=== PATIENT | male | born 1955 | race Caucasian/White ===

== ENCOUNTER → 2017-07-11 | Outpatient (CLI) | payer OTHER | LOC: BMCIMAGING 09:36 | PROVIDERS: ATTEND Internal Medicine Rheumatology | DX: M15.4 Erosive (osteo)arthritis (principal) ==

== ENCOUNTER → 2017-07-26 | Outpatient (CLI) | payer OTHER | LOC: FIMAGING 15:22 | PROVIDERS: ATTEND Internal Medicine Rheumatology | DX: L03.115 Cellulitis of right lower limb (principal); M67.471 Ganglion, right ankle and foot ==

== ENCOUNTER 2018-06-20 09:54 | Inpatient (IN) | payer OTHER ==
--- NOTE | 2018-06-20 10:16 | EDPHY ---
HPI/HX/ROS/PE/MDM Narrative: CHIEF COMPLAINT: CHF and Kidney failure exacerbation HISTORY OF PRESENT ILLNESS: The patient is an anticoagulated (Eliquis) 62 y/o male with a history of atrial fibrillation, CHF, ?COPD, O2 dependency and recently increasing creatinine arriving to the emergency department at the request of [facility]. From April 17- he was admitted in the ICU for A-fib, CHF, pulmonary disease possibly COPD. On April 17, the atrial fibrillation was first diagnosed and he was placed on supplemental oxygen. During this admission he had a cardioversion for the atrial fibrillation, but was back [facility] after 5 days. After the admission he was seen by a well service pump equipment operator at [facility], and had an echocardiogram which reveled an increase in his ejection fraction from 10 to 30%. On Sunday, 3 days ago, he noticed that he had increased fluid retention, shortness of breath, and weight gain. At this time he had an irregular heart beat. Due to these symptoms he saw his PCP who advised that the patient see a well service pump equipment operator. Yesterday he went to [facility] and saw Dr. Garcia , where again, AFib and RVR was diagnosed. Patient also was noted to be developing renal insufficiency. Due to this in addition to the fluid retention they advised that he present to the emergency department, but he decided to wait until today to present. He reports that he is still making urine, but has not been making as much for the last 2-3 months. He denies seeing a rim fire charger operator for the renal insufficiency as he was just diagnosed with it yesterday. No fever, chills, chest pain, vomiting, diarrhea, urinary complaints, headache, lightheadedness. REVIEW OF SYSTEMS: Aside from elements discussed in the HPI, a comprehensive 10-system review of systems was reviewed and is negative. PAST MEDICAL HISTORY: Atrial fibrillation, has been electrically converted previously and has declined treatment with tikosyn or sotalol. CHF, pulmonary disease, renal insufficiency, IBS, cholecystectomy, inguinal hernia, spinal stenosis, rheumatoid arthritis. SOCIAL HISTORY: Lives in [place], at bedside, retired VITAL SIGNS: Reviewed by me GENERAL: Appears sick, well-developed, well-nourished. Laying with the sunglasses on, and with an oxygen face mask on. HEENT: Atraumatic. Eyes: No icterus, no injection. Mouth: moist mucous membranes. No erythema or lesions. Neck: supple with no adenopathy. LUNGS: Bilateral rales, tachypneic, no wheezes or rhonchi. CARDIAC: Tachycardic, irregularly irregular, no rubs, murmurs or gallops. ABDOMEN: Protuberant abdomen without a fluid wave. Soft, nontender, bowel sounds normal. BACK: No CVA tenderness. EXTREMITIES: No trauma. 2+ bilateral pitting edema. Range of motion is normal throughout. NEURO: Alert and oriented, grossly nonfocal. SKIN: Warm and dry, no rash. PSYCHIATRIC: Normal mentation, no agitation. Portions of this note were transcribed by a medical logistics specialist. I personally performed a history, physical exam, medical decision making, and confirmed accuracy of information the transcribed note. ED Course: The patient is an anticoagulated (Eliquis) 62 y/o male with a history of atrial fibrillation, CHF, pulmonary disease requiring oxygen, acute renal insufficiency , arriving to the emergency department at the request of [facility]. He was seen by Dr. Connors, well service pump equipment operator, yesterday. During this visit he was in a-fib with RVR, had increased fluid retention, and was in acute renal failure. On exam he has rales bilaterally, is tachypneic, and tachycardic. He also has a protuberant abdomen without a fluid wave, has 2+ bilateral pitting edema, and appears sick. Labs, EKG, and chest x-ray ordered; 20mg IVP Diltiazem with a drip administered. 12-LEAD EKG: Please see the full report in [facility]. My interpretation: Atrial fibrillation with RVR Xray: Chest x-ray was obtained. I viewed the images myself on the PACS system. My interpretation of the images is: Cardiomegaly, acute pulmonary edema. The radiology interpretation is: Agrees. 1136: Reassessed patient and discussed laboratory and imaging results. I discussed the plan for admission which the patient and his are comfortable with. 1228: I consulted with the hospitalist service, Dr. Andrade accepts admission of this patient. Of note, patient's D-dimer is elevated. Because of his renal insufficiency, a would prefer not to perform a CT scan with IV contrast. V/Q scan is a possibility but the patient has significant pulmonary disease. Hospice service was made aware of the elevated D-dimer. If possible, they would like further evaluation for pulmonary embolism. Patient had received 40 mg of Lasix for his congestive heart failure. 1305: In preparation potential CT with IV contrast, patient received 500 cc of normal saline. 1334: Patient's BP has dropped from 108/83 to 98/81. His heart rate has dropped to the 70's and 80's. I have stopped the diltiazem drip. 1344: I consulted with Dr. Andrade regarding this patient, to provide update. 1404: I reassessed patient, he is no longer on the diltiazem drip but his BP has decreased to 65/49. When he is moved to a supine position his BP increases to 104/89. His heart rate remains well controlled. Patient's presentation and course discussed with well service pump equipment operator, Dr. Kim. As the patient is currently on Eliquis and has clear evidence of cardiomyopathy, and congestive heart failure which most likely explain the majority of his shortness of breath and hypoxemia, Dr. Kim would recommend not proceeding with CT scan for pulmonary embolism. 1409: Patient seen in the emergency department by Dr. Kim. MDM: Differential diagnosis for the patient's presenting symptom complex was considered including but not limited to atrial fibrillation with RVR, acute pulmonary edema, acute coronary syndrome, pulmonary embolism, cardiogenic shock. - Data Points Imaging Results: CXR: Impression: Cardiogenic pulmonary edema, superimposed on chronic interstitial lung disease. Dictated By: Humza Varela MD Imaging: I viewed and interpreted images myself Laboratory Results: Laboratory Results 06/20/18 10:22 06/20/18 10:22 Medications Given: Apixaban (Eliquis) 5 mg PO BID NARESH Stop: 12/17/18 20:59 Last Admin: 06/21/18 09:28 Dose: 5 mg Furosemide (Lasix Injection) 40 mg IVP BID@0900,1500 NARESH Stop: 12/17/18 14:59 Last Admin: 06/21/18 09:29 Dose: 40 mg Metoprolol Tartrate (Lopressor) 37.5 mg PO BID NARESH Stop: 12/17/18 09:59 Last Admin: 06/21/18 09:53 Dose: 37.5 mg Prednisone (Prednisone) 15 mg PO DAILY NARESH Stop: 12/18/18 08:59 Last Admin: 06/21/18 09:28 Dose: 15 mg Sotalol HCl (Betapace) 80 mg PO BID [facility] Stop: 12/17/18 20:59 Last Admin: 06/21/18 09:29 Dose: 80 mg Spironolactone (Aldactone) 25 mg PO DAILY NARESH Stop: 12/18/18 08:59 Last Admin: 06/21/18 09:28 Dose: 25 mg Zolpidem Tartrate (Ambien) 5 - 10 mg PO HS PRN PRN Reason: Sleep/Insomnia Stop: 12/17/18 15:45 Last Admin: 06/21/18 02:26 Dose: 10 mg Discontinued Medications Diltiazem HCl (Cardizem 25 Mg/5 Ml Vial) 20 mg IVP EDNOW ONE Stop: 06/20/18 10:41 Last Admin: 06/20/18 11:24 Dose: 20 mg Furosemide (Lasix Injection) 40 mg IVP ONCE ONE Stop: 06/20/18 13:40 Last Admin: 06/20/18 14:45 Dose: 40 mg Diltiazem HCl 125 mg/ Dextrose 125 mls @ 0 mls/hr IV EDNOW ONE; As Directed PRN Reason: Protocol Stop: 06/20/18 10:41 Last Admin: 06/20/18 12:14 Dose: 125 mls Sodium Chloride (Ns) 1,000 mls @ 0 mls/hr IV ONCE ONE; Wide Open PRN Reason: Protocol Stop: 06/20/18 13:07 Last Admin: 06/20/18 13:40 Dose: 1,000 mls Metoprolol Tartrate (Lopressor) 25 mg PO BID NARESH Stop: 12/17/18 20:59 Last Admin: 06/21/18 09:56 Dose: Not Given Point of Care Test Results: Chemistry 06/20/18 06/20/18 10:50 10:26 POC Sodium 140 mEq/L mEq/L (135-145) POC Potassium 3.4 mEq/L mEq/L (3.3-5.0) POC Chloride 98 mEq/L mEq/L (97-110) POC BUN 41 mg/dL H mg/dL (7-23) POC Creatinine 1.5 mg/dL H mg/dL (0.7-1.3) POC Glucose 205 mg/dL H mg/dL (70-100) POC Troponin I 0.02 ng/mL ng/mL (0.00-0.08) ISTAT H&H 06/20/18 10:50 POC Hgb 19.4 gm/dL H gm/dL (13.7-17.5) POC Hct 57 % H % (40-51) General Time Seen by Provider: 06/20/18 10:12 Initial Vital Signs: Initial Vital Signs Temperature (C) 36.8 C 06/20/18 10:07 Heart Rate 129 H 06/20/18 10:07 Respiratory Rate 24 H 06/20/18 10:07 Blood Pressure 108/83 H 06/20/18 10:07 O2 Sat (%) 93 06/20/18 10:07 O2 Delivery Mode Oxymask O2 (L/minute) 6 Allergies/Adverse Reactions: eluxadoline [From Viberzi] Allergy (Verified 06/20/18 10:05) metronidazole [From Flagyl] Allergy (Verified 06/20/18 10:05) Home Medications: Medication Instructions Recorded Diazepam [Valium 5 MG (*)] 5 mg PO QID PRN 04/17/18 Hydrocodone/Acetaminophen [[place] 0.5 - 1 each PO Q4-6PRN PRN 04/17/18 5/325 (*)] riTUXimab [Rituxan 500mg (*)] 375 mg IV .[id number] 04/17/18 Mag/Aluminum/Sod Bicarb/Alginc 2 each PO DAILY PRN 04/18/18 [Gaviscon 80-14.2 mg Tab Chew] Apixaban [Eliquis] 5 mg PO BID #60 tab 04/21/18 Furosemide [Lasix 20 MG (*)] 20 mg PO DAILY #30 tab 04/26/18 Spironolactone [Aldactone 25 MG 25 mg PO DAILY #30 tab 04/26/18 (*)] Cholecalciferol Vit D3 [Vitamin D3 2,000 units PO DAILY 06/20/18 2000 units tab (OTC)] Lisinopril [Zestril 5 mg (*)] 5 mg PO DAILY 06/20/18 Metoprolol Succinate Xr [Toprol Xl 250 mg PO DAILY 06/20/18 100 mg (*)] Nystatin Powder [Mycostatin Powder 1 roshan TP DAILY 06/20/18 (RX)] ZOLPIDEM TARTRATE [Ambien CR 12.5 12.5 mg PO HS PRN 06/20/18 mg] acetaZOLAMIDE [Diamox 250 mg (RX)] 250 mg PO DAILY 06/20/18 predniSONE [predniSONE] 15 mg PO DAILY 06/20/18 Departure - Departure Disposition: [facility] Inpatient Acute Clinical Impression: Atrial fibrillation with RVR, Shortness of breath Congestive heart failure Qualifiers: Heart failure type: unspecified Heart failure chronicity: acute on chronic Qualified Code(s): I50.9 - Heart failure, unspecified COPD (chronic obstructive pulmonary disease) Qualifiers: COPD type: COPD with acute exacerbation Qualified Code(s): J44.1 - Chronic obstructive pulmonary disease with (acute) exacerbation Renal failure Qualifiers: Renal failure chronicity: acute Acute renal failure type: unspecified Qualified Code(s): N17.9 - Acute kidney failure, unspecified Condition: Fair Report Scribed for: Emily Nieves Report Scribed by: Jayne Vallejo Date of Report: 06/20/18 Time of Report: 10:15
[2018-06-20] MEDS ORDERED: DILTIAZEM 125 MG in D5W 125 ML IV ONE (10:40)
[2018-06-20] MEDS ORDERED: DILTIAZEM 25 MG/5 ML VIAL IVP ONE (10:40)
[2018-06-20 10:59] LABS: PLATELET COUNT 130 10^3/uL (150-400)
[2018-06-20 11:14] LABS: INR 2.06 (0.83-1.16); PROTIME(PATIENT) 23.3 SEC (12.0-15.0)
[2018-06-20] MEDS ORDERED: ONDANSETRON 4 MG/2 ML VIAL IVP PRN (12:57)
[2018-06-20] MEDS ORDERED: ONDANSETRON DISINTEGRATING 4 MG TAB PO PRN (12:57)
[2018-06-20] MEDS ORDERED: ACETAMINOPHEN 325 MG TAB PO PRN (12:57)
[2018-06-20] MEDS ORDERED: NS 1,000 ML IV ONE (13:06)
[2018-06-20] MEDS ORDERED: FUROSEMIDE 20 MG/2 ML VIAL IVP ONE (13:39)
[2018-06-20] MEDS ORDERED: IOPAMIDOL (ISOVUE 370) 100 ML BTL IV ONE (13:45)
--- NOTE | 2018-06-20 14:24 | PDGENHP ---
History and Physical - Chief Complaint SOB, Edema - History of Present Illness Alphonse Orozco is a 62 yo male with a PMHx of A Fub, CHF, COPD, Rheumatoid Arthritis, CKD who presents to [facility] for evaluation of A Fib w RVR and CHF exacerbation. Patient notes that about 3 days ago he began to have lower extremity swelling, SOB, and weight gain. Due to these symptoms he saw his PCP who referred him to cardiology. He was seen by Dr. Garcia of [facility] yesterday where they noticed he was in Atrial fibrillation with RVR. Due to this in addition to the fluid retention, they advised that he present to the emergency department, but he decided to wait until today to present. He reports that he is still making urine, but has not been making as much for the last 2-3 months. He currently denies any chest pain, f/c, n/v. He does still have SOB and palpitations present. Of note, patient was admitted to [facility] from April 17- for A-fib, CHF, COPD, and kidney failure. During this admission, cardioversion was performed however patient returned to [facility] after 5 days. After the admission he was seen by a marketing and public relations manager at [facility], and had an echocardiogram which reveled an increase in his ejection fraction from 10 to 30%. History Information - Allergies/Home Medication List Allergies/Adverse Reactions: penicillin V Allergy (Severe, Verified 04/17/18 08:44) eluxadoline [From Viberzi] Allergy (Verified 06/20/18 10:05) metronidazole [From Flagyl] Allergy (Verified 06/20/18 10:05) Home Medications: Diazepam [Valium 5 MG (*)] 5 mg PO QID PRN 04/17/18 [Last Taken 06/19/18] Hydrocodone/Acetaminophen [[place] 5/325 (*)] 0.5 - 1 each PO Q4-6PRN PRN [Last Taken 06/20/18] riTUXimab [Rituxan 500mg (*)] 375 mg IV .[id number] 04/17/18 [Last Taken Unknown] Mag/Aluminum/Sod Bicarb/Alginc [Gaviscon 80-14.2 mg Tab Chew] 2 each PO DAILY PRN 04/18/18 [Last Taken 06/20/18] Cholecalciferol Vit D3 [Vitamin D3 2000 units tab (OTC)] 2,000 units PO DAILY [Last Taken 06/20/18] Lisinopril [Zestril 5 mg (*)] 5 mg PO DAILY 06/20/18 [Last Taken 06/20/18] Metoprolol Succinate Xr [Toprol Xl 100 mg (*)] 250 mg PO DAILY 06/20/18 [Last Taken 06/20/18] Nystatin Powder [Mycostatin Powder (RX)] 1 roshan TP DAILY 06/20/18 [Last Taken 12/02] ZOLPIDEM TARTRATE [Ambien CR 12.5 mg] 12.5 mg PO HS PRN 06/20/18 [Last Taken 12/02] acetaZOLAMIDE [Diamox 250 mg (RX)] 250 mg PO DAILY 06/20/18 [Last Taken 06/20/18 ] predniSONE [predniSONE] 15 mg PO DAILY 06/20/18 [Last Taken 06/20/18] I have personally reviewed and updated: family history, medical history, social history, surgical history - Past Medical History atrial fibrillation, hypertension Additional medical history: Rheumatoid arthritis. Immunosuppression, on Rituxan. Anxiety. Zaragoza's esophagus. GERD. PFO. 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-low Review of Systems Review of Systems: ROS: 10pt was reviewed & negative except for what was stated in HPI & below Physical Exam Physical Exam: Temp Pulse Resp BP Pulse Ox 36.8 C 72 20 104/68 91 L 06/20/18 10:07 06/20/18 14:00 06/20/18 14:00 06/20/18 14:00 06/20/18 14:00 O2 (L/minute) 7 Constitutional: no apparent distress Eyes: PERRL Ears, Nose, Mouth, Throat: moist mucous membranes Cardiovascular: irregularly irregular, tachycardia, edema Respiratory: no respiratory distress, reduced air movement, inspiratory crackles Gastrointestinal: soft, non-tender abdomen, distension Genitourinary: no bladder tenderness Skin: warm Musculoskeletal: no muscle tenderness Neurologic: AAOx3 Psychiatric: interacting appropriately Lymph, Heme, Immunologic: No ecchymoses, No petechiae Lab Data & Imaging Review 06/20/18 10:22 06/20/18 10:22 WBC 11.76 10^3/uL (3.80-9.50) H 06/20/18 10:22 RBC 4.99 10^6/uL (4.40-6.38) 06/20/18 10:22 Hgb 16.9 g/dL (13.7-17.5) 06/20/18 10:22 POC Hgb 19.4 gm/dL (13.7-17.5) H 06/20/18 10:50 Hct 52.4 % (40.0-51.0) H 06/20/18 10:22 POC Hct 57 % (40-51) H 06/20/18 10:50 MCV 105.0 fL (81.5-99.8) H 06/20/18 10:22 MCH 33.9 pg (27.9-34.1) 06/20/18 10:22 MCHC 32.3 g/dL (32.4-36.7) L 06/20/18 10:22 RDW 16.2 % (11.5-15.2) H 06/20/18 10:22 Plt Count 130 10^3/uL (150-400) L 06/20/18 10:22 MPV 12.0 fL (8.7-11.7) H 06/20/18 10:22 Neut % (Auto) Not Reported 06/20/18 10:22 Lymph % (Auto) Not Reported 06/20/18 10:22 [place] % (Auto) Not Reported 06/20/18 10:22 Eos % (Auto) Not Reported 06/20/18 10:22 Baso % (Auto) Not Reported 06/20/18 10:22 Nucleat RBC Rel Count Not Reported 06/20/18 10:22 Absolute Neuts (auto) Not Reported 06/20/18 10:22 Absolute Lymphs (auto) Not Reported 06/20/18 10:22 Absolute Monos (auto) Not Reported 06/20/18 10:22 Absolute Eos (auto) Not Reported 06/20/18 10:22 Absolute Basos (auto) Not Reported 06/20/18 10:22 Absolute Nucleated RBC Not Reported 06/20/18 10:22 Immature Gran % Not Reported 06/20/18 10:22 Seg Neutrophils % 61.0 % 06/20/18 10:22 Band Neutrophils % 6.0 % 06/20/18 10:22 Lymphocytes % 24.0 % 06/20/18 10:22 Monocytes % 6.0 % 06/20/18 10:22 Eosinophils % 0.0 % 06/20/18 10:22 Basophils % 0.0 % 06/20/18 10:22 Metamyelocytes % 0.0 % 06/20/18 10:22 Myelocytes % 3.0 % 06/20/18 10:22 Promyelocytes % 0.0 % 06/20/18 10:22 Blast Cells % 0.0 % 06/20/18 10:22 Immature Gran # Not Reported 06/20/18 10:22 Absolute Seg Neuts 7.17 10^/uL (1.70-6.50) H 06/20/18 10:22 Absolute Band Neuts 0.71 10^3/uL (0.00-0.70) H 06/20/18 10:22 Absolute Lymphocytes 2.82 10^3/uL (1.00-3.00) 06/20/18 10:22 Absolute Monocytes 0.71 10^3/uL (0.30-0.80) 06/20/18 10:22 Absolute Eosinophils 0.00 10^3/uL (0.03-0.40) L 06/20/18 10:22 Absolute Basophils 0.00 10^3/uL (0.02-0.10) L 06/20/18 10:22 Absolute Metamyelocyte 0.00 10^3/mL (0.00-0.00) 06/20/18 10:22 Absolute Myelocytes 0.35 10^3/mL (0.00-0.00) H 06/20/18 10:22 Absolute Promyelocytes 0.00 10^3/uL (0.00-0.00) 06/20/18 10:22 Absolute Plasma Cells 0.00 10^3/uL (0.00-0.00) 06/20/18 10:22 Nucleated RBCs 0 /100 WBC (0-0) 06/20/18 10:22 Absolute Blast Cells 0.00 10^3/uL (0.00-0.00) 06/20/18 10:22 Plasma Cells % 0.0 % 06/20/18 10:22 Platelet Estimate DECREASED (ADEQ) L 06/20/18 10:22 Polychromasia 1+ H 06/20/18 10:22 Oval Macrocytes 2+ H 06/20/18 10:22 Echinocytes 1+ H 06/20/18 10: PT 23.3 SEC (12.0-15.0) H 06/20/18 10:22 INR 2.06 (0.83-1.16) H 06/20/18 10:22 D-Dimer 3.70 ug/mLFEU (0.00-0.50) H 06/20/18 10:22 POC Sodium 140 mEq/L (135-145) 06/20/18 10:50 Sodium 140 mEq/L (135-145) 06/20/18 10:22 POC Potassium 3.4 mEq/L (3.3-5.0) 06/20/18 10:50 Potassium 3.7 mEq/L (3.3-5.0) 06/20/18 10:22 POC Chloride 98 mEq/L (97-110) 06/20/18 10:50 Chloride 98 mEq/L (97-110) 06/20/18 10:22 Carbon Dioxide 29 mEq/l (22-31) 06/20/18 10:22 Anion Gap 13 mEq/L (8-16) 06/20/18 10:22 POC BUN 41 mg/dL (7-23) H 06/20/18 10:50 BUN 42 mg/dL (7-23) H 06/20/18 10:22 Creatinine 1.5 mg/dL (0.7-1.3) H 06/20/18 10:22 POC Creatinine 1.5 mg/dL (0.7-1.3) H 06/20/18 10:50 Estimated GFR 47 06/20/18 10:22 Glucose 202 mg/dL (70-100) H 06/20/18 10:22 POC Glucose 205 mg/dL (70-100) H 06/20/18 10:50 Calcium 9.0 mg/dL (8.5-10.4) 06/20/18 10:22 Magnesium 2.4 mg/dL (1.6-2.3) H 06/20/18 10:22 Total Bilirubin 2.3 mg/dL (0.1-1.4) H 06/20/18 10:22 Conjugated Bilirubin 1.0 mg/dL (0.0-0.5) H 06/20/18 10:22 Unconjugated Bilirubin 1.3 mg/dL (0.0-1.1) H 06/20/18 10:22 AST 170 IU/L (17-59) H 06/20/18 10:22 ALT 292 IU/L (21-72) H 06/20/18 10:22 Alkaline Phosphatase 129 IU/L (38-126) H 06/20/18 10:22 POC Troponin I 0.02 ng/mL (0.00-0.08) 06/20/18 10:26 Troponin I 0.029 ng/mL (0.000-0.034) 06/20/18 10:22 NT-Pro-B Natriuret Pep 7910 pg/mL (0-125) H 06/20/18 10:22 Total Protein 6.2 g/dL (6.3-8.2) L 06/20/18 10:22 Albumin 3.7 g/dL (3.5-5.0) 06/20/18 10:22 Urine Color YELLOW 06/20/18 11:30 Urine Appearance CLEAR 06/20/18 11:30 Urine pH 6.0 (5.0-7.5) 06/20/18 11:30 Ur Specific [place] 1.009 (1.002-1.030) 06/20/18 11:30 Urine Protein NEGATIVE (NEGATIVE) 06/20/18 11:30 Urine Ketones NEGATIVE (NEGATIVE) 06/20/18 11:30 Urine Blood NEGATIVE (NEGATIVE) 06/20/18 11:30 Urine Nitrate NEGATIVE (NEGATIVE) 06/20/18 11:30 Urine Bilirubin NEGATIVE (NEGATIVE) 06/20/18 11:30 Urine Urobilinogen NEGATIVE EU (0.2-1.0) 06/20/18 11:30 Ur Leukocyte Esterase NEGATIVE (NEGATIVE) 06/20/18 11:30 Urine RBC 1-3 /hpf (0-3) 06/20/18 11:30 Urine WBC 1-3 /hpf (0-3) 06/20/18 11:30 Ur Epithelial Cells NONE SEEN /lpf (NONE-1+) 06/20/18 11:30 Urine Mucus TRACE /lpf (NONE-1+) 06/20/18 11:30 Urine Glucose NEGATIVE (NEGATIVE) 06/20/18 11:30 Visualized and Interpreted Chest x-ray results: Yes Chest X-Ray results: effusion Visualized and Interpreted imaging results: Yes Visualized and Interpreted EKG results: Yes EKG additional interpertation: A fib w RVR Assessment & Plan Assessment: Acute on Chronic Congestive heart failure (Acute) - 3 days of SOB, edema, weight gain - TTE from 04/17 shows EF 5-10% - Was on Lasix 20 mg qd, Spironolactone 25 mg qd, Acetazolamide qod - Appears volume overloaded on exam - BNP 7,910 on admission, CXR with pulmonary edema - S/p 40 mg IV Lasix in ED, will continue 40 mg IV BID for now - Continue home Spironolactone, hold Acetazolamide - Monitor I/O, BMP, daily weights Atrial fibrillation with RVR (Acute) - Initially HR 130's on admission EKG - S/p 5 mg IV Diltiazem, was started on Dilt gtt in ED - Due to low normal BP dilt gtt d/c in ED - Cardiology consulted in ED, will f/u recs on repeat DCCV vs. rhythm vs. rate control - Continue home Metoprolol, may require uptitration if no rhythm strategy is pursued - Continue home Elaquis Acute Hypoxic Respiratory Failure - 2/2 to CHF exacerbation as above - Requiring 6L Oxymask from home 3L - Wean 02 as needed Acute Renal failure (Acute) - Cr 1.5 on admission, baseline 0.9-1.2 - Likely elevated in setting of CHF exacerbation - Will diurese as above - Continue to monitor I/O, BMP, avoid Nephrotoxic agents Transaminitis/Hyperbilirubinemia - AST/ALT elevated to 170/292 on admission with T Bili 2.3 - No hx of liver disease, no elevated LFTs in the past - May be elevated in setting of CHF with cardiorenal syndrome - Will order RUQ U/S - Continue to monitor LFTs, if no improvement with diuresis will complete further evaluation Interstitial Lung Disease - Thought to be 2/2 to Rheumatoid Arthritis - Continue home Prednisone 15 mg qd, may be contributing to edema - On Rituxan at home FEN: S/p 500 cc in ED Ppx: Home Elaquis Diet: Cardiac Code: FULL Dispo: Admit to Medicine, pending clinical course
--- NOTE | 2018-06-20 16:12 | CPEKG ---
Test Reason : OPEN Blood Pressure : / mmHG Vent. Rate : 137 BPM Atrial Rate : 146 BPM P-R Int : 164 ms QRS Dur : 115 ms QT Int : 351 ms P-R-T Axes : 026 -48 153 degrees QTc Int : 530 ms Atrial fibrillation Incomplete left bundle branch block LVH with secondary repolarization abnormality Confirmed by Emily Nieves [id number]) on 06/20/2018 4:12:16 PM Referred By: Confirmed By:Emily Nieves
[2018-06-20] MEDS: FUROSEMIDE 40 MG/4 ML VIAL IVP SCH (16:42)
[2018-06-20] MEDS: APIXABAN 5 MG TAB PO SCH (23:18)
[2018-06-20] MEDS: METOPROLOL TARTRATE 25 MG TAB PO SCH (23:18)
[2018-06-20] MEDS: SOTALOL HCL 80 MG TAB PO SCH (23:20)
[2018-06-21] MEDS: ZOLPIDEM TARTRATE 5 MG TAB PO PRN (02:26)
[2018-06-21] MEDS ORDERED: METOPROLOL SUCCINATE XR 100 MG TAB PO SCH (09:00)
[2018-06-21] MEDS ORDERED: LISINOPRIL 5 MG TAB PO SCH (09:00)
[2018-06-21] MEDS: predniSONE 10 MG TAB PO SCH (09:28)
[2018-06-21] MEDS: SPIRONOLACTONE 25 MG TAB PO SCH (09:28)
[2018-06-21] MEDS: APIXABAN 5 MG TAB PO SCH ×2 (09:28→21:02)
[2018-06-21] MEDS: FUROSEMIDE 40 MG/4 ML VIAL IVP SCH ×2 (09:29→18:06)
[2018-06-21] MEDS: SOTALOL HCL 80 MG TAB PO SCH ×2 (09:29→21:03)
[2018-06-21] MEDS: METOPROLOL TARTRATE 25 MG TAB PO SCH ×3 (09:53→20:54)
--- NOTE | 2018-06-21 09:55 | HOSPPROG ---
Hospitalist Progress Note Assessment/Plan: Acute on Chronic Congestive heart failure (Acute) - 3 days of SOB, edema, weight gain - TTE from 04/17 shows EF 5-10% - Was on Lasix 20 mg qd, Spironolactone 25 mg qd, Acetazolamide qod - Appeared volume overloaded on exam - BNP 7,910 on admission, CXR with pulmonary edema - S/p 40 mg IV Lasix in ED, will continue 40 mg IV BID for now - Net negative 1.2L overnight, improving Cr and LFTs - Continue home Spironolactone, hold Acetazolamide - Monitor I/O, BMP, daily weights Atrial fibrillation with RVR (Acute) - Initially HR 130's on admission EKG - S/p 5 mg IV Diltiazem, was started on Dilt gtt in ED - Due to low normal BP dilt gtt d/c in ED - Cardiology consulted in ED, started Sotalol 80 mg BID last night, titrate as needed - Continue home Metoprolol - Continue home Elaquis Acute Hypoxic Respiratory Failure - 2/2 to CHF exacerbation as above - Requiring 6L Oxymask from home 3L - Wean 02 as needed Acute Renal failure (Acute) - Cr 1.5 on admission, baseline 0.9-1.2, 12. this AM - Likely elevated in setting of CHF exacerbation - Will diurese as above - Continue to monitor I/O, BMP, avoid Nephrotoxic agents Transaminitis/Hyperbilirubinemia - AST/ALT elevated to 170/292 on admission with T Bili 2.3, improved to AST/ALT 95/219 this AM - No hx of liver disease, no elevated LFTs in the past - May be elevated in setting of CHF with cardiorenal syndrome - Will order RUQ U/S - Continue to monitor LFTs, if no improvement with diuresis will complete further evaluation Interstitial Lung Disease - Thought to be 2/2 to Rheumatoid Arthritis - Continue home Prednisone 15 mg qd, may be contributing to edema - On Rituxan at home FEN: S/p 500 cc in ED Ppx: Home Elaquis Diet: Cardiac Code: FULL Dispo: Pending clinical course, management of A Fib and CHF exacerbation Subjective: Patient reports improved breathing this morning Objective: Vital Signs Temp Pulse Resp BP Pulse Ox 36.3 C 117 H 20 111/91 H 92 06/21/18 08:28 06/21/18 08:28 06/21/18 08:28 06/21/18 08:28 06/21/18 08:28 Laboratory Results 06/21/18 04:38 06/21/18 04:38 06/20/18 06/21/18 06/22/18 05:59 05:59 05:59 Intake Total 1520 Output Total 2750 Balance -1230 PT 23.3 SEC (12.0-15.0) H 06/20/18 10:22 INR 2.06 (0.83-1.16) H 06/20/18 10:22 - Physical Exam Constitutional: no apparent distress Eyes: PERRL Ears, Nose, Mouth, Throat: moist mucous membranes Cardiovascular: irregularly irregular, tachycardia, edema Respiratory: no respiratory distress, reduced air movement Gastrointestinal: soft, non-tender abdomen Genitourinary: no bladder fullness Skin: warm Musculoskeletal: full muscle strength Neurologic: AAOx3 Psychiatric: interacting appropriately ICD10 Worksheet Patient Problems: Problems Problem Status Onset Atrial fibrillation with RVR Acute COPD (chronic obstructive pulmonary disease) Acute Congestive heart failure Acute Renal failure Acute Shortness of breath Acute
--- NOTE | 2018-06-21 11:18 | PDMN ---
Medical Necessity Medical [place] [facility] [place]: 62 yo w/ Acute on Chronic Congestive heart failure, Atrial fibrillation with RVR (Acute), Acute Hypoxic Respiratory Failure, Acute Renal failure (Acute), Transaminitis/Hyperbilirubinemia and Interstitial Lung Disease. appears volume overloaded, BNP 7910, start IV Lasix, HR 130s -150s, cardiology consult, 6L O2 via oxymask required to maintain sats ( normally on 3L at home), AST/ALT and bili elevated (170/292/2.3), wbc elevated, plt count low 118K, creat 1.5, RR 24 on admit. Anticipate>2MN for ongoing monitoring and treatment.
--- NOTE | 2018-06-21 11:36 | SOAPPROG ---
SOAP Progress Note Assessment/Plan: Assessment: 1. Severe, presumably nonischemic cardiomyopathy. This is a recent diagnosis and thought to be related to tachycardia in the setting of his atrial fibrillation with a rapid ventricular response. He presents now with worsening congestive heart failure associated with poorly controlled atrial fibrillation. His respiratory failure is compound by the presence of underlying interstitial lung disease. 2. Atrial fibrillation. Persistent at this point. Poor rate control. In the past, he had been cardioverted to sinus rhythm although presents now back in atrial fibrillation. He and I have had conversations previously regarding antiarrhythmic therapy. Because of his associated comorbidities we are really limited to either using Tikosyn or sotalol. He favors sotalol. This was started yesterday. He is currently on systemic anticoagulation in the form of Eliquis with no indications of bleeding. 3. Interstitial lung disease. This appears to be stable. Exact etiology is not clear although may be related to his history of rheumatoid arthritis. 4. Mild LFT abnormalities. Likely related to passive congestion. Improving following diuresis. 5. Elevated creatinine. 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 Also improving in the setting of diuretic therapy. Plan: 1. We will plan to continue on his current medications including IV diuretics and sotalol loading. 2. I will give him an additional dose of metoprolol to help with rate control today. 3. We will carefully follow his electrolytes during this hospitalization. 4. Once he achieves a more euvolemic status and following appropriate sotalol loading we will plan for a SANDIE and cardioversion. 5. Depending on his clinical course, we may need to consider more advanced therapies such as implantation of a biventricular pacemaker/defibrillator and AV node ablation. At some point in the future I also think he needs to be evaluated for underlying ischemic heart disease. 06/21/18 11:33 Subjective: Today he states that he is feeling better. He has less edema and dyspnea. On telemetry he remains in atrial fibrillation with a rapid ventricular response although overall better controlled heart rates. Objective: Vital Signs Temp Pulse Resp BP Pulse Ox 36.3 C 117 H 20 111/91 H 92 06/21/18 08:28 06/21/18 08:28 06/21/18 08:28 06/21/18 08:28 06/21/18 08:28 Laboratory Results 06/21/18 04:38 06/21/18 04:38 06/20/18 06/21/18 06/22/18 05:59 05:59 05:59 Intake Total 1520 650 Output Total 2750 150 Balance -1230 500 PT 23.3 SEC (12.0-15.0) H 06/20/18 10:22 INR 2.06 (0.83-1.16) H 06/20/18 10:22 Physical Exam - Physical Exam General Appearance: WD/WN Neck: non-tender, full range of motion Respiratory: chest non-tender, rales (Diffuse Velcro rales), No respiratory distress, No accessory muscle use Cardiac/Chest: edema (1 quarter-inch pitting edema to just above the ankle), JVD , irregularly irregular Peripheral Pulses: 2+: carotid (R), carotid (L) Abdomen: non-tender, soft Male Genitalia: deferred Rectal: deferred Neuro/Psych: alert, oriented x 3 ICD10 Worksheet Patient Problems: Problems Problem Status Onset Atrial fibrillation with RVR Acute COPD (chronic obstructive pulmonary disease) Acute Congestive heart failure Acute Renal failure Acute Shortness of breath Acute
--- NOTE | 2018-06-21 13:57 | ASMTCMCOM ---
CM Note CM Note Notes: Patient admitted for Sotalol loading. He has a significant medical and cardiac hx including Afib w RVR, CHF, COPD, and CKD. He is followed by [facility]. Patient is normally independent, , employed. PT/OT ordered and pending. Case Management will follow for any d/c needs. Date Signed: 06/21/2018 01:56 PM Electronically Signed By:Ryanne Gonzalez RN
--- NOTE | 2018-06-21 14:38 | ASMTCMCOM ---
CM Note CM Note Notes: Addendum to CM note: Patient is current with [facility]. Referral sent; they will continue to follow. Date Signed: 06/21/2018 02:37 PM Electronically Signed By:Ryanne Gonzalez RN
[2018-06-21] MEDS ORDERED: METOPROLOL TARTRATE 5 MG/5 ML INJ IVP ONE (16:00)
--- NOTE | 2018-06-21 17:21 | CPEKG ---
Test Reason : OPEN Blood Pressure : / mmHG Vent. Rate : 133 BPM Atrial Rate : 138 BPM P-R Int : 160 ms QRS Dur : 115 ms QT Int : 361 ms P-R-T Axes : 120 -47 149 degrees QTc Int : 538 ms Atrial fibrillation Left anterior fascicular block LVH with secondary repolarization abnormality Confirmed by Herminia Ceron ([id number]) on 06/21/2018 5:20:57 PM Referred By: Confirmed By:Herminia Ceron
--- NOTE | 2018-06-21 17:28 | CPEKG ---
Test Reason : OPEN Blood Pressure : / mmHG Vent. Rate : 127 BPM Atrial Rate : 131 BPM P-R Int : 146 ms QRS Dur : 115 ms QT Int : 348 ms P-R-T Axes : 000 -42 160 degrees QTc Int : 507 ms Atrial fibrillation Incomplete left bundle branch block LVH with secondary repolarization abnormality Confirmed by Herminia Ceron ([id number]) on 06/21/2018 5:27:48 PM Referred By: Confirmed By:Herminia Ceron
[2018-06-22] MEDS: DIAZEPAM 5 MG TAB PO PRN (00:21)
--- NOTE | 2018-06-22 08:58 | SOAPPROG ---
SOAP Progress Note Assessment/Plan: Assessment: 62 y/o man with acute on chronic systolic CHF with LVEF < 25% and recurrent afib with RVR. He is still hypervolemic but improving. Still JOHN < 10ft. PLAN: 1)increase Aldactone to 50mg PO qam. 2)increase Lasix to 40mg IV q8hrs 3)KCL 20meq PO BID 4)probably SANDIE/DCCV on Sunday and EP-Jimbo consult Sunday to recommend future Afib management. 5)fluid restrict 2000cc/day 6)continue Sotalol load. 06/22/18 08:54 Subjective: less short of breath and abdomen no longer hurts. Denies syncope or cough. Sharp pain across chest. Still in lots of denial how sick he is. Objective: Vital Signs Temp Pulse Resp BP Pulse Ox 36.3 C 145 H 17 107/74 95 06/22/18 08:00 06/22/18 08:00 06/22/18 08:00 06/22/18 08:00 06/22/18 08:00 Laboratory Results 06/21/18 04:38 06/22/18 03:17 06/21/18 06/22/18 06/23/18 05:59 05:59 05:59 Intake Total 1520 1050 Output Total 2750 2775 Balance -1230 -1725 PT 23.3 SEC (12.0-15.0) H 06/20/18 10:22 INR 2.06 (0.83-1.16) H 06/20/18 10:22 Physical Exam - Physical Exam General Appearance: WD/WN EENT: normal ENT inspection Neck: full range of motion Respiratory: rales (bibasilar rales) Cardiac/Chest: gallop, JVD, systolic murmur, irregularly irregular Peripheral Pulses: 1+: carotid (R), carotid (L), femoral (R), femoral (L), dorsalis-pedis (R), dorsalis-pedis (L) Abdomen: non-tender, distended, No rebound Skin: warm/dry Extremities: pedal edema Neuro/Psych: alert ICD10 Worksheet Patient Problems: Problems Problem Status Onset Atrial fibrillation with RVR Acute COPD (chronic obstructive pulmonary disease) Acute Congestive heart failure Acute Renal failure Acute Shortness of breath Acute
[2018-06-22] MEDS: METOPROLOL TARTRATE 25 MG TAB PO SCH ×2 (09:06→21:11)
[2018-06-22] MEDS: APIXABAN 5 MG TAB PO SCH ×2 (09:07→21:10)
[2018-06-22] MEDS: SOTALOL HCL 80 MG TAB PO SCH ×2 (09:07→21:07)
[2018-06-22] MEDS: predniSONE 10 MG TAB PO SCH (09:07)
[2018-06-22] MEDS ORDERED: LACTULOSE 20 GM/30 ML UDCUP PO PRN (09:17)
[2018-06-22] MEDS ORDERED: POLYETHYLENE GLYCOL 3350 17 GM PKT PO PRN (09:17)
[2018-06-22] MEDS ORDERED: BISACODYL 10 MG SUPP PR PRN (09:17)
[2018-06-22] MEDS ORDERED: MAGNESIUM HYDROXIDE 30 ML UDCUP PO PRN (09:17)
[2018-06-22] MEDS: POTASSIUM CL 20 MEQ TAB PO SCH ×2 (09:58→21:12)
[2018-06-22] MEDS: SPIRONOLACTONE 50 MG TAB PO SCH (09:58)
[2018-06-22] MEDS: FUROSEMIDE 40 MG/4 ML VIAL IVP SCH ×4 (09:59→21:13)
[2018-06-22] MEDS: SPIRONOLACTONE 25 MG TAB PO SCH (10:32)
--- NOTE | 2018-06-22 11:12 | HOSPPROG ---
Hospitalist Progress Note Assessment/Plan: Acute on Chronic Congestive heart failure (Acute) - 3 days of SOB, edema, weight gain - TTE from 04/17 shows EF 5-10% - Was on Lasix 20 mg qd, Spironolactone 25 mg qd, Acetazolamide qod - Appeared volume overloaded on exam - BNP 7,910 on admission, CXR with pulmonary edema - S/p 40 mg IV Lasix in ED, will increase to 40 mg IV TID per cardiology - Net negative 1.2L overnight, improving Cr and LFTs - Continue home Spironolactone, increased to 50 mg qd per cardiology - 2000 ml Fluid restriction, hold Acetazolamide - Monitor I/O, BMP, daily weights Atrial fibrillation with RVR (Acute) - Initially HR 130's on admission EKG - S/p 5 mg IV Diltiazem, was started on Dilt gtt in ED - Due to low normal BP dilt gtt d/c in ED - Cardiology consulted in ED, started Sotalol 80 mg BID and increased home Metoprolol - Plan for SANDIE Cardioversion on Sunday with EP consult for further management - Continue home Elaquis Acute Hypoxic Respiratory Failure - 2/2 to CHF exacerbation as above - Requiring 6L Oxymask from home 3L - Wean 02 as needed Acute Renal failure (Acute) - Cr 1.5 on admission, baseline 0.9-1.2, 1.5 this AM - Likely elevated in setting of CHF exacerbation - Will diurese as above - Continue to monitor I/O, BMP, avoid Nephrotoxic agents Transaminitis/Hyperbilirubinemia - AST/ALT elevated to 170/292 on admission with T Bili 2.3, improved to AST/ALT 95/219 this AM - No hx of liver disease, no elevated LFTs in the past - - Continue to monitor LFTs Interstitial Lung Disease - Thought to be 2/2 to Rheumatoid Arthritis - Continue home Prednisone 15 mg qd, may be contributing to edema - On Rituxan at home FEN: S/p 500 cc in ED Ppx: Home Elaquis Diet: Cardiac Code: FULL Dispo: Pending clinical course, management of A Fib and CHF exacerbation Subjective: Patient reports some R shoulder pain overnight that has resolved Objective: Vital Signs Temp Pulse Resp BP Pulse Ox 36.3 C 145 H 17 107/74 95 06/22/18 08:00 06/22/18 08:00 06/22/18 08:00 06/22/18 08:00 06/22/18 08:00 Laboratory Results 06/21/18 04:38 06/22/18 03:17 06/21/18 06/22/18 06/23/18 05:59 05:59 05:59 Intake Total 1520 1050 200 Output Total 2750 2775 Balance -1230 -1725 200 PT 23.3 SEC (12.0-15.0) H 06/20/18 10:22 INR 2.06 (0.83-1.16) H 06/20/18 10:22 - Physical Exam Constitutional: no apparent distress Eyes: PERRL Ears, Nose, Mouth, Throat: moist mucous membranes Cardiovascular: regular rate and rhythym Respiratory: inspiratory crackles Gastrointestinal: soft, non-tender abdomen Genitourinary: no bladder fullness Skin: warm Musculoskeletal: no muscle tenderness Neurologic: AAOx3 Psychiatric: interacting appropriately ICD10 Worksheet Patient Problems: Problems Problem Status Onset Atrial fibrillation with RVR Acute COPD (chronic obstructive pulmonary disease) Acute Congestive heart failure Acute Renal failure Acute Shortness of breath Acute
[2018-06-22] MEDS: HYDROCODONE/APAP 5/325 TAB PO PRN (12:11)
[2018-06-22] MEDS ORDERED: NICOTINE POLACRILEX 2 MG GUM B PRN (16:09)
[2018-06-23] MEDS: SENNOSIDES/DOCUSATE SODIUM TAB PO SCH ×3 (00:07→22:14)
[2018-06-23] MEDS: ZOLPIDEM TARTRATE 5 MG TAB PO PRN ×2 (01:17→23:08)
[2018-06-23] MEDS: FUROSEMIDE 40 MG/4 ML VIAL IVP SCH ×3 (06:06→21:24)
[2018-06-23] MEDS: predniSONE 10 MG TAB PO SCH (09:12)
[2018-06-23] MEDS: POTASSIUM CL 20 MEQ TAB PO SCH ×2 (09:12→21:15)
[2018-06-23] MEDS: APIXABAN 5 MG TAB PO SCH ×2 (09:13→21:19)
[2018-06-23] MEDS: METOPROLOL TARTRATE 25 MG TAB PO SCH ×2 (09:13→21:19)
[2018-06-23] MEDS: SOTALOL HCL 80 MG TAB PO SCH ×2 (09:14→21:24)
--- NOTE | 2018-06-23 09:18 | SOAPPROG ---
ABEL Progress Note Assessment/Plan: Assessment: 62 y/o man with acute on chronic systolic CHF with LVEF < 25% and recurrent afib with RVR. He is still hypervolemic but improving. Pt very odd affect and will refuse a pacemaker he reports currently. PLAN: 1)decrease Aldactone to 25mg PO qam. 2)rest of meds without changes. 3)NPO after midnight for SANDIE/CV in AM 4)EP-Jimbo consult for overall recommendations for skilled nursing Afib management. I think he needs Sotalol [employer] and AV donald ablation. 5)psychiatric consult would be helpful too. 6)check labs in AM (CBC and CMP). 06/23/18 09:15 Subjective: overall he feels less short of breath. No more CP. Denies dizziness or rest dyspnea. He became very agitated when I discussed possible pacemaker and AV donald ablation and he chantal up in bed and yelled in my face "I will never do a pacemaker as you're technology is horrible and you haven't changed your pacemaker technology in ten years!!" Objective: Vital Signs Temp Pulse Resp BP Pulse Ox 35.7 C L 132 H 21 H 101/70 90 L 06/23/18 07:29 06/23/18 07:29 06/23/18 07:29 06/23/18 07:29 06/23/18 07:29 Laboratory Results 06/21/18 04:38 06/23/18 05:56 06/22/18 06/23/18 06/24/18 05:59 05:59 05:59 Intake Total 1050 1300 Output Total 2775 1775 Balance -1725 -475 PT 23.3 SEC (12.0-15.0) H 06/20/18 10:22 INR 2.06 (0.83-1.16) H 06/20/18 10:22 Physical Exam - Physical Exam General Appearance: other (very odd, paranoid, angry affect. In no CP or respiratory distress) EENT: normal ENT inspection Neck: non-tender Respiratory: lungs clear Cardiac/Chest: gallop, JVD (JVP to 8-9cm.), tachycardia, systolic murmur, irregularly irregular Peripheral Pulses: 2+: carotid (R), carotid (L), femoral (R), femoral (L), dorsalis-pedis (R), dorsalis-pedis (L) Abdomen: non-tender, No distended, No guarding, No rebound, No ascites Skin: warm/dry Extremities: No pedal edema Neuro/Psych: No motor weakness ICD10 Worksheet Patient Problems: Problems Problem Status Onset Atrial fibrillation with RVR Acute COPD (chronic obstructive pulmonary disease) Acute Congestive heart failure Acute Renal failure Acute Shortness of breath Acute
[2018-06-23] MEDS: SPIRONOLACTONE 50 MG TAB PO SCH (09:19)
[2018-06-23] MEDS: SPIRONOLACTONE 25 MG TAB PO SCH (09:21)
--- NOTE | 2018-06-23 11:11 | HOSPPROG ---
Hospitalist Progress Note Assessment/Plan: Acute on Chronic Congestive heart failure (Acute) - 3 days of SOB, edema, weight gain - TTE from 04/17 shows EF 5-10% - Was on Lasix 20 mg qd, Spironolactone 25 mg qd, Acetazolamide qod at home - Appeared volume overloaded on exam - BNP 7,910 on admission, CXR with pulmonary edema - S/p 40 mg IV Lasix in ED, increased to 40 mg IV TID per cardiology on 06/22 - Net negative 0.5 L overnight, improving Cr and LFTs - Continue home Spironolactone, decreased back to 25 mg qd per cardiology - 2000 ml Fluid restriction, hold Acetazolamide - Monitor I/O, BMP, daily weights Atrial fibrillation with RVR (Acute) - Initially HR 130's on admission EKG - S/p 5 mg IV Diltiazem, was started on Dilt gtt in ED - Due to low normal BP dilt gtt d/c in ED - Cardiology consulted in ED, started Sotalol 80 mg BID and increased home Metoprolol - Plan for SANDIE Cardioversion tomorrow with EP consult for further management - Continue home Elaquis Acute Hypoxic Respiratory Failure - 2/2 to CHF exacerbation as above - Requiring 5L Oxymask from home 3L - Wean 02 as needed Acute Renal failure (Acute) - Cr 1.5 on admission, baseline 0.9-1.2, 1.3 this AM - Likely elevated in setting of CHF exacerbation - Will diurese as above - Continue to monitor I/O, BMP, avoid Nephrotoxic agents Transaminitis/Hyperbilirubinemia - AST/ALT elevated to 170/292 on admission with T Bili 2.3, improved to AST/ALT 95/219 this AM - No hx of liver disease, no elevated LFTs in the past - Continue to monitor LFTs Interstitial Lung Disease - Thought to be 2/2 to Rheumatoid Arthritis - Continue home Prednisone 15 mg qd, may be contributing to edema - On Rituxan at home FEN: S/p 500 cc in ED Ppx: Home Elaquis Diet: Cardiac Code: FULL Dispo: Pending clinical course, management of A Fib and CHF exacerbation Subjective: Patient reports improved SOB this morning Objective: Vital Signs Temp Pulse Resp BP Pulse Ox 35.7 C L 132 H 21 H 101/70 90 L 06/23/18 07:29 06/23/18 07:29 06/23/18 07:29 06/23/18 07:29 06/23/18 07:29 Laboratory Results 06/21/18 04:38 06/23/18 05:56 06/22/18 06/23/18 06/24/18 05:59 05:59 05:59 Intake Total 1050 1300 Output Total 2775 1775 Balance -1725 -475 PT 23.3 SEC (12.0-15.0) H 06/20/18 10:22 INR 2.06 (0.83-1.16) H 06/20/18 10:22 - Physical Exam Constitutional: no apparent distress Eyes: PERRL Ears, Nose, Mouth, Throat: moist mucous membranes Cardiovascular: irregularly irregular, tachycardia Respiratory: no respiratory distress, inspiratory crackles Gastrointestinal: soft, non-tender abdomen Genitourinary: no bladder tenderness Skin: warm Musculoskeletal: full muscle strength Neurologic: AAOx3 Psychiatric: interacting appropriately ICD10 Worksheet Patient Problems: Problems Problem Status Onset Atrial fibrillation with RVR Acute COPD (chronic obstructive pulmonary disease) Acute Congestive heart failure Acute Renal failure Acute Shortness of breath Acute
--- NOTE | 2018-06-23 18:44 | CPEKG ---
Test Reason : OPEN Blood Pressure : / mmHG Vent. Rate : 128 BPM Atrial Rate : 139 BPM P-R Int : 168 ms QRS Dur : 110 ms QT Int : 362 ms P-R-T Axes : 000 -42 145 degrees QTc Int : 529 ms Atrial fibrillation LVH with secondary repolarization abnormalities LAHB vs old inferior [place] Compared with 06/21/2018 overall similar findings Confirmed by Herminia Ceron ([id number]) on 06/23/2018 6:43:34 PM Referred By: Confirmed By:Herminia Ceron
--- NOTE | 2018-06-23 18:55 | CPEKG ---
Test Reason : OPEN Blood Pressure : / mmHG Vent. Rate : 142 BPM Atrial Rate : 207 BPM P-R Int : 176 ms QRS Dur : 114 ms QT Int : 346 ms P-R-T Axes : 000 -42 168 degrees QTc Int : 532 ms Atrial fibrillation Incomplete left bundle branch block LVH with secondary repolarization abnormality LAHB vs old inferior [place] Prolonged QT interval Compared with 06/21/2018 overall similar findings Confirmed by Herminia Ceron ([id number]) on 06/23/2018 6:54:50 PM Referred By: Confirmed By:Herminia Ceron
--- NOTE | 2018-06-23 18:56 | CPEKG ---
Test Reason : OPEN Blood Pressure : / mmHG Vent. Rate : 123 BPM Atrial Rate : 120 BPM P-R Int : 204 ms QRS Dur : 111 ms QT Int : 332 ms P-R-T Axes : 000 -39 162 degrees QTc Int : 475 ms Atrial fibrillation LVH with secondary repolarization abnormality Inferior infarct, old Confirmed by Herminia Ceron ([id number]) on 06/23/2018 6:55:57 PM Referred By: Confirmed By:Herminia Ceron
--- NOTE | 2018-06-23 18:57 | CPEKG ---
Test Reason : OPEN Blood Pressure : / mmHG Vent. Rate : 129 BPM Atrial Rate : 067 BPM P-R Int : 164 ms QRS Dur : 110 ms QT Int : 343 ms P-R-T Axes : 000 -44 176 degrees QTc Int : 503 ms Atrial fibrillation Incomplete left bundle branch block LVH with secondary repolarization abnormality Prolonged QT interval Confirmed by Herminia Ceron ([id number]) on 06/23/2018 6:57:40 PM Referred By: Confirmed By:Herminia Ceron
[2018-06-23] MEDS: HYDROCODONE/APAP 5/325 TAB PO PRN (23:08)
[2018-06-24] MEDS: FUROSEMIDE 40 MG/4 ML VIAL IVP SCH ×3 (05:59→21:34)
[2018-06-24] MEDS ORDERED: ATROPINE SULFATE 1 MG/10 ML SYR IVP ONE (06:00)
[2018-06-24] MEDS ORDERED: NS 1,000 ML IV ONE (06:00)
[2018-06-24 06:05] LABS: INR 1.62 (0.83-1.16); PROTIME(PATIENT) 19.4 SEC (12.0-15.0)
--- NOTE | 2018-06-24 08:44 | CPEKG ---
Test Reason : OPEN Blood Pressure : / mmHG Vent. Rate : 128 BPM Atrial Rate : 144 BPM P-R Int : 082 ms QRS Dur : 111 ms QT Int : 365 ms P-R-T Axes : 000 -47 141 degrees QTc Int : 533 ms Atrial fibrillation LVH with IVCD, LAD and secondary repol abnrm Prolonged QT interval Confirmed by Marquis Millan ([id number]) on 06/24/2018 8:44:43 AM Referred By: Confirmed By:Marquis Millan
--- NOTE | 2018-06-24 08:47 | CPEKG ---
Test Reason : OPEN Blood Pressure : / mmHG Vent. Rate : 115 BPM Atrial Rate : 113 BPM P-R Int : 124 ms QRS Dur : 111 ms QT Int : 370 ms P-R-T Axes : 000 -48 144 degrees QTc Int : 512 ms Atrial fibrillation LVH with secondary repolarization abnormality Inferior infarct, old Prolonged QT interval Confirmed by Marquis Millan ([id number]) on 06/24/2018 8:47:19 AM Referred By: Confirmed By:Marquis Millan
--- NOTE | 2018-06-24 08:53 | HOSPPROG ---
Hospitalist Progress Note Assessment/Plan: Acute on Chronic Congestive heart failure (Acute) - 3 days of SOB, edema, weight gain - TTE from 04/17 shows EF 5-10% - Was on Lasix 20 mg qd, Spironolactone 25 mg qd, Acetazolamide qod at home - Appeared volume overloaded on exam - BNP 7,910 on admission, CXR with pulmonary edema - S/p 40 mg IV Lasix in ED, increased to 40 mg IV TID per cardiology on 06/22 - Net negative 350 ml overnight, improving Cr and LFTs - Continue home Spironolactone, decreased back to 25 mg qd per cardiology - 2000 ml Fluid restriction, hold Acetazolamide - Monitor I/O, BMP, daily weights Atrial fibrillation with RVR (Acute) - Initially HR 130's on admission EKG - S/p 5 mg IV Diltiazem, was started on Dilt gtt in ED - Due to low normal BP dilt gtt d/c in ED - Cardiology consulted in ED, started Sotalol 80 mg BID and increased home Metoprolol - Plan for SANDIE Cardioversion today with EP consult for further management - Continue home Elaquis Acute Hypoxic Respiratory Failure - 2/2 to CHF exacerbation as above - Requiring 5L Oxymask from home 3L - Wean 02 as needed Acute Renal failure (Acute) - Cr 1.5 on admission, baseline 0.9-1.2, 1.1 this AM - Likely elevated in setting of CHF exacerbation - Diuresis as above - Continue to monitor I/O, BMP, avoid Nephrotoxic agents Transaminitis/Hyperbilirubinemia - AST/ALT elevated to 170/292 on admission with T Bili 2.3, improved to AST/ALT 33/114 - No hx of liver disease, no elevated LFTs in the past - Continue to monitor LFTs Interstitial Lung Disease - Thought to be 2/2 to Rheumatoid Arthritis - Continue home Prednisone 15 mg qd, may be contributing to edema - On Rituxan at home FEN: S/p 500 cc in ED Ppx: Home Elaquis Diet: Cardiac Code: FULL Dispo: Pending clinical course, management of A Fib and CHF exacerbation Subjective: Patient reports no complaints this morning Objective: Vital Signs Temp Pulse Resp BP Pulse Ox 36.6 C 130 H 11 L 95/73 L 91 L 06/24/18 07:19 06/24/18 07:19 06/24/18 07:19 06/24/18 07:19 06/24/18 07:19 Laboratory Results 06/21/18 04:38 06/24/18 04:34 06/23/18 06/24/18 06/25/18 05:59 05:59 05:59 Intake Total 1300 1700 Output Total 1775 2050 Balance -475 -350 PT 19.4 SEC (12.0-15.0) H 06/24/18 04:34 INR 1.62 (0.83-1.16) H 06/24/18 04:34 - Physical Exam Constitutional: no apparent distress Eyes: PERRL Ears, Nose, Mouth, Throat: moist mucous membranes Cardiovascular: irregularly irregular, tachycardia Respiratory: no respiratory distress Gastrointestinal: soft, non-tender abdomen Genitourinary: no bladder tenderness Skin: warm Musculoskeletal: no muscle tenderness Neurologic: AAOx3 Psychiatric: interacting appropriately ICD10 Worksheet Patient Problems: Problems Problem Status Onset Atrial fibrillation with RVR Acute COPD (chronic obstructive pulmonary disease) Acute Congestive heart failure Acute Renal failure Acute Shortness of breath Acute
--- NOTE | 2018-06-24 12:00 | PDCARPN ---
Cardiology Progress Note Assessment/Plan: Assessment: 1. Afib with RVR 2. 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 Baron remains in Afib with RVR. SBP in the mid 90's to low 100's. He is on Sotalol 80 mg bid and metoprolol tartrate 37.5 mg bid. He remains on Eliquis 5 mg bid. He is NPO for SANDIE/DCCV today. Reviewed/Discussed With: family, hospitalist, multidisciplinary team Objective: Vital Signs (8 Hrs) Temp Pulse Resp BP Pulse Ox 06/24/18 07:19 36.6 C 130 H 11 L 95/73 L 91 L 06/24/18 04:00 36.4 C 107 H 18 97/86 H 92 Intake/Output (24 Hrs) 06/23/18 06/24/18 06/25/18 05:59 05:59 05:59 Intake Total 1300 1700 Output Total 1775 2050 Balance -475 -350 Intake: Oral (ml) 1300 1700 Output: Urine (ml) 1774 2049 Toilet 600 700 Urinal 1175 1350 Other: Weight 71.7 kg 71.8 kg Number of Voids Toilet 1 1 Urinal 1 2 Number of Stools Toilet 1 Result Diagrams: 06/21/18 04:38 06/24/18 04:34 Cardiac Labs: Cardiac Lab Results (72 Hrs) 06/21/18 23:35 Troponin I < 0.012 - Physical Exam Constitutional: no apparent distress Neurologic: AAOx3, CN II-XII grossly intact Psychiatric: interactive, following commands ICD10 Worksheet Patient Problems: Problems Problem Status Onset Atrial fibrillation with RVR Acute COPD (chronic obstructive pulmonary disease) Acute Congestive heart failure Acute Renal failure Acute Shortness of breath Acute
[2018-06-24] MEDS: METOPROLOL TARTRATE 25 MG TAB PO SCH ×2 (12:04→21:44)
[2018-06-24] MEDS: APIXABAN 5 MG TAB PO SCH ×2 (12:04→21:33)
[2018-06-24] MEDS: predniSONE 10 MG TAB PO SCH (12:06)
[2018-06-24] MEDS: SOTALOL HCL 80 MG TAB PO SCH ×2 (12:06→21:32)
[2018-06-24] MEDS: DIAZEPAM 5 MG TAB PO PRN (12:12)
--- NOTE | 2018-06-24 12:55 | HOSPPROG ---
Hospitalist Progress Note Assessment/Plan: Acute on Chronic Congestive heart failure (Acute) - 3 days of SOB, edema, weight gain - TTE from 04/17 shows EF 5-10% - Was on Lasix 20 mg qd, Spironolactone 25 mg qd, Acetazolamide qod at home - Appeared volume overloaded on exam - BNP 7,910 on admission, CXR with pulmonary edema - S/p 40 mg IV Lasix in ED, increased to 40 mg IV TID per cardiology on 06/22 - Net negative 350 ml overnight, improving Cr and LFTs - Continue home Spironolactone, decreased back to 25 mg qd per cardiology - 2000 ml Fluid restriction, hold Acetazolamide - Monitor I/O, BMP, daily weights Atrial fibrillation with RVR (Acute) - Initially HR 130's on admission EKG - S/p 5 mg IV Diltiazem, was started on Dilt gtt in ED - Due to low normal BP dilt gtt d/c in ED - Cardiology consulted in ED, started Sotalol 80 mg BID and increased home Metoprolol - Plan for SANDIE Cardioversion today with EP consult for further management - Continue home Elaquis Acute Hypoxic Respiratory Failure - 2/2 to CHF exacerbation as above - Requiring 5L Oxymask from home 3L - Wean 02 as needed Acute Renal failure (Acute) - Cr 1.5 on admission, baseline 0.9-1.2, 1.1 this AM - Likely elevated in setting of CHF exacerbation - Diuresis as above - Continue to monitor I/O, BMP, avoid Nephrotoxic agents Transaminitis/Hyperbilirubinemia - AST/ALT elevated to 170/292 on admission with T Bili 2.3, improved to AST/ALT 33/114 - No hx of liver disease, no elevated LFTs in the past - Continue to monitor LFTs Interstitial Lung Disease - Thought to be 2/2 to Rheumatoid Arthritis - Continue home Prednisone 15 mg qd, may be contributing to edema - On Rituxan at home FEN: S/p 500 cc in ED Ppx: Home Elaquis Diet: Cardiac Code: FULL Dispo: Pending clinical course, management of A Fib and CHF exacerbation Subjective: Patient reports being tired this AM Objective: Vital Signs Temp Pulse Resp BP Pulse Ox 36.6 C 142 H 15 89/67 L 86 L 06/24/18 12:00 06/24/18 12:00 06/24/18 12:00 06/24/18 12:00 06/24/18 12:00 Laboratory Results 06/21/18 04:38 06/24/18 04:34 06/23/18 06/24/18 06/25/18 05:59 05:59 05:59 Intake Total 1300 1700 Output Total 1775 2050 Balance -475 -350 PT 19.4 SEC (12.0-15.0) H 06/24/18 04:34 INR 1.62 (0.83-1.16) H 06/24/18 04:34 - Physical Exam Constitutional: no apparent distress Eyes: PERRL Ears, Nose, Mouth, Throat: moist mucous membranes Cardiovascular: irregularly irregular, tachycardia Respiratory: no respiratory distress, reduced air movement Gastrointestinal: soft, non-tender abdomen Genitourinary: no bladder tenderness Skin: warm Musculoskeletal: full muscle strength Neurologic: AAOx3 Psychiatric: interacting appropriately, anxious ICD10 Worksheet Patient Problems: Problems Problem Status Onset Atrial fibrillation with RVR Acute COPD (chronic obstructive pulmonary disease) Acute Congestive heart failure Acute Renal failure Acute Shortness of breath Acute
--- NOTE | 2018-06-24 13:41 | PDCARCONS ---
Cardiology Consult Reason for Consult: Atrial fibrillation with rapid ventricular response. Tachycardia mediated cardiomyopathy Chief Complaint: Shortness of breath Requesting Physician: Dr. Warner Garcia, Dr. William Quinn History of Present Illness: I have been asked to visit with this gentleman by his clinic mirror silverer Dr. William Quinn and CHF specialist Dr. Warner Garcia. Patient has a history of atrial fibrillation with difficult to control rates, presented initially with low LV ejection fraction, underwent cardioversion procedure and presented again with atrial fibrillation with rapid ventricular response associated with CHF symptoms Currently he is on metoprolol and sotalol, in atrial fibrillation with ventricular rates in the 130s. I visited with the patient on 2 [facility] telemetry floor along with Dr. William Quinn, patient's RN was present in the room. Patient's and daughter were also present for this discussion History Information - Allergies/Home Medication List Allergies/Adverse Reactions: eluxadoline [From Viberzi] Allergy (Verified 06/20/18 10:05) metronidazole [From Flagyl] Allergy (Verified 06/20/18 10:05) Home Medications: Diazepam [Valium 5 MG (*)] 5 mg PO QID PRN 04/17/18 [Last Taken 06/19/18] Hydrocodone/Acetaminophen [[place] 5/325 (*)] 0.5 - 1 each PO Q4-6PRN PRN [Last Taken 06/20/18] riTUXimab [Rituxan 500mg (*)] 375 mg IV .[id number] 04/17/18 [Last Taken Unknown] Mag/Aluminum/Sod Bicarb/Alginc [Gaviscon 80-14.2 mg Tab Chew] 2 each PO DAILY PRN 04/18/18 [Last Taken 06/20/18] Cholecalciferol Vit D3 [Vitamin D3 2000 units tab (OTC)] 2,000 units PO DAILY [Last Taken 06/20/18] Lisinopril [Zestril 5 mg (*)] 5 mg PO DAILY 06/20/18 [Last Taken 06/20/18] Metoprolol Succinate Xr [Toprol Xl 100 mg (*)] 250 mg PO DAILY 06/20/18 [Last Taken 06/20/18] Nystatin Powder [Mycostatin Powder (RX)] 1 roshan TP DAILY 06/20/18 [Last Taken 12/02] ZOLPIDEM TARTRATE [Ambien CR 12.5 mg] 12.5 mg PO HS PRN 06/20/18 [Last Taken 12/02] acetaZOLAMIDE [Diamox 250 mg (RX)] 250 mg PO DAILY 06/20/18 [Last Taken 06/20/18 ] predniSONE [predniSONE] 15 mg PO DAILY 06/20/18 [Last Taken 06/20/18] I have personally reviewed and updated: family history, medical history, social history Past Medical History: - Social History Smoking Status: Never smoked Physical Exam Physical Exam: Temp Pulse Resp BP Pulse Ox 36.6 C 142 H 15 89/67 L 86 L 06/24/18 12:00 06/24/18 12:00 06/24/18 12:00 06/24/18 12:00 06/24/18 12:00 O2 (L/minute) 5 Constitutional: no apparent distress, appears nourished, not in pain Eyes: PERRL, EOMI Ears, Nose, Mouth, Throat: moist mucous membranes, hearing normal Cardiovascular: irregularly irregular (Tachycardic) Respiratory: no respiratory distress Gastrointestinal: normoactive bowel sounds, soft, non-tender abdomen Neurologic: AAOx3, sensation intact bilaterally Lab and Imaging 06/21/18 04:38 06/24/18 04:34 WBC 11.18 10^3/uL (3.80-9.50) H 06/21/18 04:38 RBC 4.65 10^6/uL (4.40-6.38) 06/21/18 04:38 Hgb 15.8 g/dL (13.7-17.5) 06/21/18 04:38 POC Hgb 19.4 gm/dL (13.7-17.5) H 06/20/18 10:50 Hct 47.8 % (40.0-51.0) 06/21/18 04:38 POC Hct 57 % (40-51) H 06/20/18 10:50 MCV 102.8 fL (81.5-99.8) H 06/21/18 04:38 MCH 34.0 pg (27.9-34.1) 06/21/18 04:38 MCHC 33.1 g/dL (32.4-36.7) 06/21/18 04:38 RDW 16.1 % (11.5-15.2) H 06/21/18 04:38 Plt Count 118 10^3/uL (150-400) L 06/21/18 04:38 MPV 12.0 fL (8.7-11.7) H 06/20/18 10:22 Neut % (Auto) Not Reported 06/20/18 10:22 Lymph % (Auto) Not Reported 06/20/18 10:22 [place] % (Auto) Not Reported 06/20/18 10:22 Eos % (Auto) Not Reported 06/20/18 10:22 Baso % (Auto) Not Reported 06/20/18 10:22 Nucleat RBC Rel Count Not Reported 06/20/18 10:22 Absolute Neuts (auto) Not Reported 06/20/18 10:22 Absolute Lymphs (auto) Not Reported 06/20/18 10:22 Absolute Monos (auto) Not Reported 06/20/18 10:22 Absolute Eos (auto) Not Reported 06/20/18 10:22 Absolute Basos (auto) Not Reported 06/20/18 10:22 Absolute Nucleated RBC Not Reported 06/20/18 10:22 Immature Gran % Not Reported 06/20/18 10:22 Seg Neutrophils % 61.0 % 06/20/18 10:22 Band Neutrophils % 6.0 % 06/20/18 10:22 Lymphocytes % 24.0 % 06/20/18 10:22 Monocytes % 6.0 % 06/20/18 10:22 Eosinophils % 0.0 % 06/20/18 10:22 Basophils % 0.0 % 06/20/18 10:22 Metamyelocytes % 0.0 % 06/20/18 10:22 Myelocytes % 3.0 % 06/20/18 10:22 Promyelocytes % 0.0 % 06/20/18 10:22 Blast Cells % 0.0 % 06/20/18 10:22 Immature Gran # Not Reported 06/20/18 10:22 Absolute Seg Neuts 7.17 10^/uL (1.70-6.50) H 06/20/18 10:22 Absolute Band Neuts 0.71 10^3/uL (0.00-0.70) H 06/20/18 10:22 Absolute Lymphocytes 2.82 10^3/uL (1.00-3.00) 06/20/18 10:22 Absolute Monocytes 0.71 10^3/uL (0.30-0.80) 06/20/18 10:22 Absolute Eosinophils 0.00 10^3/uL (0.03-0.40) L 06/20/18 10:22 Absolute Basophils 0.00 10^3/uL (0.02-0.10) L 06/20/18 10:22 Absolute Metamyelocyte 0.00 10^3/mL (0.00-0.00) 06/20/18 10:22 Absolute Myelocytes 0.35 10^3/mL (0.00-0.00) H 06/20/18 10:22 Absolute Promyelocytes 0.00 10^3/uL (0.00-0.00) 06/20/18 10:22 Absolute Plasma Cells 0.00 10^3/uL (0.00-0.00) 06/20/18 10:22 Nucleated RBCs 0 /100 WBC (0-0) 06/20/18 10:22 Absolute Blast Cells 0.00 10^3/uL (0.00-0.00) 06/20/18 10:22 Plasma Cells % 0.0 % 06/20/18 10:22 Platelet Estimate DECREASED (ADEQ) L 06/20/18 10:22 Polychromasia 1+ H 06/20/18 10:22 Oval Macrocytes 2+ H 06/20/18 10:22 Echinocytes 1+ H 06/20/18 10:22 PT 19.4 SEC (12.0-15.0) H 06/24/18 04:34 INR 1.62 (0.83-1.16) H 06/24/18 04:34 APTT 31.9 SEC (23.0-38.0) 06/24/18 04:34 D-Dimer 3.70 ug/mLFEU (0.00-0.50) H 06/20/18 10:22 POC Sodium 140 mEq/L (135-145) 06/20/18 10:50 Sodium 138 mEq/L (135-145) 06/24/18 04:34 POC Potassium 3.4 mEq/L (3.3-5.0) 06/20/18 10:50 Potassium 4.1 mEq/L (3.3-5.0) 06/24/18 04:34 POC Chloride 98 mEq/L (97-110) 06/20/18 10:50 Chloride 102 mEq/L (97-110) 06/24/18 04:34 Carbon Dioxide 28 mEq/l (22-31) 06/24/18 04:34 Anion Gap 8 mEq/L (8-16) 06/24/18 04:34 POC BUN 41 mg/dL (7-23) H 06/20/18 10:50 BUN 39 mg/dL (7-23) H 06/24/18 04:34 Creatinine 1.1 mg/dL (0.7-1.3) 06/24/18 04:34 POC Creatinine 1.5 mg/dL (0.7-1.3) H 06/20/18 10:50 Estimated GFR > 60 06/24/18 04:34 Glucose 143 mg/dL (70-100) H 06/24/18 04:34 POC Glucose 205 mg/dL (70-100) H 06/20/18 10:50 Calcium 8.6 mg/dL (8.5-10.4) 06/24/18 04:34 Magnesium 2.3 mg/dL (1.6-2.3) 06/24/18 04:34 Total Bilirubin 1.3 mg/dL (0.1-1.4) 06/24/18 04:34 Conjugated Bilirubin 1.0 mg/dL (0.0-0.5) H 06/20/18 10:22 Unconjugated Bilirubin 1.3 mg/dL (0.0-1.1) H 06/20/18 10:22 AST 33 IU/L (17-59) 06/24/18 04:34 ALT 114 IU/L (21-72) H 06/24/18 04:34 Alkaline Phosphatase 101 IU/L (38-126) 06/24/18 04:34 POC Troponin I 0.02 ng/mL (0.00-0.08) 06/20/18 10:26 Troponin I < 0.012 ng/mL (0.000-0.034) 06/21/18 23:35 NT-Pro-B Natriuret Pep 7910 pg/mL (0-125) H 06/20/18 10:22 Total Protein 5.7 g/dL (6.3-8.2) L 06/24/18 04:34 Albumin 3.0 g/dL (3.5-5.0) L 06/24/18 04:34 Urine Color YELLOW 06/20/18 11:30 Urine Appearance CLEAR 06/20/18 11:30 Urine pH 6.0 (5.0-7.5) 06/20/18 11:30 Ur Specific [place] 1.009 (1.002-1.030) 06/20/18 11:30 Urine Protein NEGATIVE (NEGATIVE) 06/20/18 11:30 Urine Ketones NEGATIVE (NEGATIVE) 06/20/18 11:30 Urine Blood NEGATIVE (NEGATIVE) 06/20/18 11:30 Urine Nitrate NEGATIVE (NEGATIVE) 06/20/18 11:30 Urine Bilirubin NEGATIVE (NEGATIVE) 06/20/18 11:30 Urine Urobilinogen NEGATIVE EU (0.2-1.0) 06/20/18 11:30 Ur Leukocyte Esterase NEGATIVE (NEGATIVE) 06/20/18 11:30 Urine RBC 1-3 /hpf (0-3) 06/20/18 11:30 Urine WBC 1-3 /hpf (0-3) 06/20/18 11:30 Ur Epithelial Cells NONE SEEN /lpf (NONE-1+) 06/20/18 11:30 Urine Mucus TRACE /lpf (NONE-1+) 06/20/18 11:30 Urine Glucose NEGATIVE (NEGATIVE) 06/20/18 11:30 Visualized and Interpreted EKG results: Yes EKG additional interpertation: Atrial fibrillation with rapid ventricular response, lateral STT changes Telemetry: Atrial fibrillation with rapid ventricular response in the 130s, at rest A/P Assessment: Atrial fibrillation with rapid ventricular response Cardiomyopathy, 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 Need to avoid amiodarone because of pre-existing lung and liver issues. Currently on metoprolol and sotalol. Post cardioversion, would try to increase sotalol to 120 mg twice daily for better antiarrhythmic effect. Discussed with the patient that he needs to have a SANDIE guided cardioversion to see if we can maintain normal rhythm with sotalol on board. If he fails sotalol, consideration to be given to either biventricular pacing and AV node ablation. I am reluctant to perform procedure without an adequate trial of sotalol given his age. However this may be the best local intermodal truck driver option. AFIB ablation (CB PVI) could be considered but am concerned about patient's compliance with drugs caleb DOAC and am also concerned re. his insight into the disease process.
--- NOTE | 2018-06-24 13:44 | PDANEPAE ---
ANE History of Present Illness SANDIE cardioversion ANE Past Medical History - Cardiovascular History Hx Hypertension: Yes Hx Arrhythmias: Yes Hx Chest Pain: No Hx Coronary Artery / Peripheral Vascular Disease: No Hx CHF / Valvular Disease: Yes Hx Palpitations: No - Pulmonary History Hx COPD: No Hx Asthma/Reactive Airway Disease: No Hx Recent Upper Respiratory Infection: No Hx Oxygen in Use at Home: Yes O2 in Use at Home (L/minute): 3L/oxymask Hx Sleep Apnea: No Pulmonary History Comment: chronic rhinitis - Endocrine History Hx Diabetes: No - Renal History Hx Renal Disorders: Yes Renal History Comment: kidney stones - Liver History Hx Hepatic Disorders: No - Neurological & Psychiatric Hx Hx Neurological and Psychiatric Disorders: No - Cancer History Hx Cancer: No - GI History Hx Gastrointestinal Disorders: Yes Gastrointestinal History Comment: Irritable bowel syndrome-D - Other Health History Other Health History: Rheumatoid arthritis - Chronic Pain History Chronic Pain: Yes (RA on Vicodin prn) - Surgical History Prior Surgeries: L elbow, inguinal hernia, cholecystectomy ANE Review of Systems Review of Systems: ANE Patient History - Allergies Allergies/Adverse Reactions: eluxadoline [From Viberzi] Allergy (Verified 06/20/18 10:05) metronidazole [From Flagyl] Allergy (Verified 06/20/18 10:05) - Home Medications Home medications: home medication list seen and reviewed Home Medications: Diazepam [Valium 5 MG (*)] 5 mg PO QID PRN 04/17/18 [Last Taken 06/19/18] Hydrocodone/Acetaminophen [[place] 5/325 (*)] 0.5 - 1 each PO Q4-6PRN PRN [Last Taken 06/20/18] riTUXimab [Rituxan 500mg (*)] 375 mg IV .[id number] 04/17/18 [Last Taken Unknown] Mag/Aluminum/Sod Bicarb/Alginc [Gaviscon 80-14.2 mg Tab Chew] 2 each PO DAILY PRN 04/18/18 [Last Taken 06/20/18] Cholecalciferol Vit D3 [Vitamin D3 2000 units tab (OTC)] 2,000 units PO DAILY [Last Taken 06/20/18] Lisinopril [Zestril 5 mg (*)] 5 mg PO DAILY 06/20/18 [Last Taken 06/20/18] Metoprolol Succinate Xr [Toprol Xl 100 mg (*)] 250 mg PO DAILY 06/20/18 [Last Taken 06/20/18] Nystatin Powder [Mycostatin Powder (RX)] 1 roshan TP DAILY 06/20/18 [Last Taken 12/02] ZOLPIDEM TARTRATE [Ambien CR 12.5 mg] 12.5 mg PO HS PRN 06/20/18 [Last Taken 12/02] acetaZOLAMIDE [Diamox 250 mg (RX)] 250 mg PO DAILY 06/20/18 [Last Taken 06/20/18 ] predniSONE [predniSONE] 15 mg PO DAILY 06/20/18 [Last Taken 06/20/18] - NPO status NPO Status: no food or drink >8 hours - Anes Hx Anes Hx: no prior problems - Smoking Hx Smoking Status: Never smoked - Family Anes Hx Family Anes Hx: none ANE Labs/Vital Signs - Labs Result Diagrams: 06/21/18 04:38 06/24/18 04:34 - Vital Signs Vital Signs: reviewed preoperatively; see RN documention for details Blood Pressure: 89/67 Heart Rate: 142 Respiratory Rate: 15 O2 Sat (%): 86 Height: 175.26 cm Weight: 71.8 kg ANE Physical Exam - Airway Neck exam: FROM Mallampati Score: Class 1 Mouth exam: poor dentition - Pulmonary Pulmonary: no respiratory distress - Cardiovascular Cardiovascular: irregularly irregular - ASA Status ASA Status: IV ANE Anesthesia Plan Total IV Anesthesia: Yes
[2018-06-24] MEDS ORDERED: ATROPINE SULFATE 1 MG/10 ML SYR ONE (13:48)
--- NOTE | 2018-06-24 14:07 | PDHPUP ---
History & Physical Update H&P update statement: This history and physical update is based on an assessment of the patient which was completed after admission or registration (within 24 hours), but prior to the surgery/procedure. H&P update: H&P reviewed & patient examined, no change in patient's condition since H&P completed
[2018-06-24] MEDS ORDERED: PROPOFOL 200 MG/20 ML VIAL ONE (14:08)
[2018-06-24] MEDS ORDERED: PERFLUTREN LIPID MICROSPHERES 1.1 MG/ML VIAL IV ONE (14:20)
[2018-06-24] MEDS: POTASSIUM CL 20 MEQ TAB PO SCH ×2 (14:24→21:33)
[2018-06-24] MEDS: SENNOSIDES/DOCUSATE SODIUM TAB PO SCH ×2 (14:25→21:34)
[2018-06-24] MEDS: SPIRONOLACTONE 25 MG TAB PO SCH (14:27)
--- NOTE | 2018-06-24 15:02 | CPR ---
DATE OF PROCEDURE: 06/24/2018 PROCEDURE PERFORMED: Transesophageal echocardiogram guided cardioversion. INDICATION FOR PROCEDURE: Atrial fibrillation with rapid ventricular response and severe tachy media morro cardiomyopathy. PROCEDURE: After informed consents were obtained for anesthesia and SANDIE and cardioversion, the patie nt was brought to the CVC. He underwent successful passage of the SANDIE probe. Images of the left atr ial appendage were obtained in multiple projections. Left atrium was severely enlarged. There was d iffuse spontaneous echo contrast. There was no evidence of definitive left atrial or left atrial roshan endage thrombus. Definity contrast was used as adjunctive measure to assess for possible thrombus in the setting of spontaneous echo contrast. There was no evidence of thrombus. Of note, LVEF approximately 10%. Right ventricular systolic function is severely reduced as well. SANDIE probe was removed without incident. Patient underwent direct current cardioversion with synchron ized biphasic energy of 200 joules with sabianism of sinus rhythm. I left the room to come dictate a post-procedure note and he returned to atrial fibrillation. He required 2 further shocks of 200 j oules to maintain sinus rhythm at 60 beats per minute. At the time of this dictation, he remains in normal sinus rhythm at 60 beats per minute. He is awaki ng from anesthesia at this time. PLAN: 1. Continue sotalol 80 mg p.o. b.i.d. 2. Continue with anticoagulation, Eliquis 5 mg p.o. b.i.d. 3. Further management of atrial fibrillation will depend on maintenance of sinus rhythm. /[id number]/MODL
--- NOTE | 2018-06-24 15:49 | ASMTCMCOM ---
CM Note CM Note Notes: Pt underwent SANDIE and cardioversion today. Pt unavailable to speak with CM, but CM spoke with RN who stated pt has been refusing therapy evals and threatening to leave AMA. Message relayed to through RN that CM is available should they feel they need support at home but pt would need to participate with therapy. Pt current with [facility]. Referral already sent to [facility]. Pt presumably independent upon discharge. CM to follow. D/C Plan: Home with [facility] Date Signed: 06/24/2018 03:49 PM Electronically Signed By:Maryjane John
--- NOTE | 2018-06-24 16:15 | CPEKG ---
Test Reason : OPEN Blood Pressure : / mmHG Vent. Rate : 064 BPM Atrial Rate : 064 BPM P-R Int : 146 ms QRS Dur : 117 ms QT Int : 488 ms P-R-T Axes : 035 -49 142 degrees QTc Int : 504 ms Sinus rhythm Probable left atrial enlargement Nonspecific IVCD with LAD LVH with secondary repolarization abnormality Inferior infarct, old Sinus rhythm has replaced atrial fibrillation as noted on prior ECG Confirmed by Marquis Millan ([id number]) on 06/24/2018 4:15:01 PM Referred By: Confirmed By:Marquis Millan
[2018-06-24] MEDS: SPIRONOLACTONE 50 MG TAB PO SCH (16:26)
[2018-06-24] MEDS: HYDROCODONE/APAP 5/325 TAB PO PRN ×2 (17:22→21:41)
[2018-06-24] MEDS: ZOLPIDEM TARTRATE 5 MG TAB PO PRN (21:41)
[2018-06-25] MEDS: HYDROCODONE/APAP 5/325 TAB PO PRN ×2 (03:43→22:26)
[2018-06-25] MEDS: FUROSEMIDE 40 MG/4 ML VIAL IVP SCH ×3 (06:26→16:18)
[2018-06-25] MEDS: SENNOSIDES/DOCUSATE SODIUM TAB PO SCH ×2 (09:26→20:02)
[2018-06-25] MEDS: predniSONE 10 MG TAB PO SCH (09:26)
[2018-06-25] MEDS: SPIRONOLACTONE 50 MG TAB PO SCH (09:26)
[2018-06-25] MEDS: APIXABAN 5 MG TAB PO SCH ×2 (09:27→20:00)
[2018-06-25] MEDS: METOPROLOL TARTRATE 25 MG TAB PO SCH (09:27)
[2018-06-25] MEDS: POTASSIUM CL 20 MEQ TAB PO SCH (09:35)
[2018-06-25] MEDS: SOTALOL HCL 80 MG TAB PO SCH (09:35)
--- NOTE | 2018-06-25 10:42 | HOSPPROG ---
Hospitalist Progress Note Assessment/Plan: Acute on Chronic Congestive heart failure (Acute) - 3 days of SOB, edema, weight gain - TTE from 04/17 shows EF 5-10% - Was on Lasix 20 mg qd, Spironolactone 25 mg qd, Acetazolamide qod at home - Appeared volume overloaded on exam - BNP 7,910 on admission, CXR with pulmonary edema - S/p 40 mg IV Lasix in ED, increased to 40 mg IV TID per cardiology on 06/22, will decrease to IV [address] Quinn - Net positive 500 ml overnight, Cr increased to 1.5 this AM - Continue home Spironolactone, decreased back to 25 mg qd per cardiology - 2000 ml Fluid restriction, hold Acetazolamide - Monitor I/O, BMP, daily weights Atrial fibrillation with RVR (Acute) - Initially HR 130's on admission EKG - S/p 5 mg IV Diltiazem, was started on Dilt gtt in ED - Due to low normal BP dilt gtt d/c in ED - Cardiology consulted in ED, started Sotalol 80 mg BID and increased home Metoprolol - S/p SANDIE Cardioversion on 06/24 however returned to A Fib w RVR this AM - Cardiology to discuss with EP for potential ablation and PPM placement - Continue home Elaquis Acute Hypoxic Respiratory Failure - 2/2 to CHF exacerbation as above - Requiring 5L Oxymask from home 3L - Wean 02 as needed Acute Renal failure (Acute) - Cr 1.5 on admission, baseline 0.9-1.2, 1.5 this AM - Likely elevated in setting of CHF exacerbation - Diuresis as above - Continue to monitor I/O, BMP, avoid Nephrotoxic agents Transaminitis/Hyperbilirubinemia - AST/ALT elevated to 170/292 on admission with T Bili 2.3, improved to AST/ALT 33/114 - No hx of liver disease, no elevated LFTs in the past - Continue to monitor LFTs Interstitial Lung Disease - Thought to be 2/2 to Rheumatoid Arthritis - Continue home Prednisone 15 mg qd, may be contributing to edema - On Rituxan at home There was an event overnight where patient ambulated to bathroom when nursing deemed patient unsafe to ambulate without assistance. Per RN, patient became verbally aggressive and security was called. This morning patient was upset and anxious about event overnight citing "untrustworthiness" of medical care team. It is noted by cardiology that there is concern about patient's understanding of his medical condition. If needed, will consult psychiatry/ behavioral health for further evaluation of competency. FEN: S/p 500 cc in ED Ppx: Home Elaquis Diet: Cardiac Code: FULL Dispo: Pending clinical course, management of A Fib and CHF exacerbation Subjective: Patient upset this morning about event overnight as patient was attempting to use bathroom on his own and informed by nursing he is not safe to ambulate on his own Objective: Vital Signs Temp Pulse Resp BP Pulse Ox 36.4 C 129 H 20 102/84 H 96 06/25/18 07:57 06/25/18 09:35 06/25/18 07:57 06/25/18 09:35 06/25/18 07:57 Laboratory Results 06/21/18 04:38 06/25/18 08:58 06/24/18 06/25/18 06/26/18 05:59 05:59 05:59 Intake Total 1700 1220 Output Total 2050 675 Balance -350 545 PT 19.4 SEC (12.0-15.0) H 06/24/18 04:34 INR 1.62 (0.83-1.16) H 06/24/18 04:34 - Physical Exam Constitutional: no apparent distress Eyes: PERRL Cardiovascular: tachycardia Respiratory: no respiratory distress Skin: normal color Neurologic: AAOx3 Psychiatric: anxious, poor judgement ICD10 Worksheet Patient Problems: Problems Problem Status Onset Atrial fibrillation with RVR Acute COPD (chronic obstructive pulmonary disease) Acute Congestive heart failure Acute Renal failure Acute Shortness of breath Acute
--- NOTE | 2018-06-25 16:20 | PDCARPN ---
Cardiology Progress Note Chief Complaint: Shortness of breath, improved Assessment/Plan: Assessment: 1. Atrial fibrillation with [id number] ventricular rates 2. Cardiomyopathy 3. Rheumatoid arthritis 4. Elevated transaminase levels, likely related to passive liver congestion 5. Interstitial lung disease Plan: I had a 45 min conversation with the patient. His and daughter were present for this discussion. His RN was also in the room for part of this discussion. He has atrial fibrillation and cardiomyopathy. We discussed that atrial fibrillation with rapid ventricular response could have led to cardiomyopathy, however atrial fibrillation could also be the result of cardiomyopathy. He has left atrial enlargement and blood flow stasis in his left atrium and left atrial appendage. He did not maintain sinus rhythm with sotalol 80 mg twice daily post cardioversion. Higher doses of sotalol have led to QTC prolongation more than 500 milliseconds and therefore sotalol has been discontinued. We discussed several options at length: 1. Rate control only with metoprolol. Today I am going to double his metoprolol to 75 mg twice daily and titrated upwards as tolerated. He has agreed to remain in the hospital while we try to control his ventricular rates. 2. Rhythm control with amiodarone. Side effects of the drug including permanent liver and lung toxicity were discussed with him. He does have pre- existing interstitial lung disease, LFT elevation is likely related to passive liver congestion, will check in the next 1-2 days. 3. AV node ablation - this should ideally be done with biventricular pacing. I would like to avoid stopping his Eliquis for the procedure because of his cardiomyopathy and blood flow stasis in his left atrium and left atrial appendage. This increases his risk of bleed. Risks of transvenous pacemaker implantation including but not limited to , myocardial infarction, stroke, cardiac tamponade which may require emergent cardiac surgery, infection, bleeding, pneumothorax, lead dislodgement and risks of sedation/anesthesia were discussed. Long-term issues like pacemaker pocket erosion, lead failure, venous stenosis, superior vena cava syndrome, need for lead extraction were discussed. Need for close long-term follow-up in our device clinic was emphasized. Need for generator change was discussed. Risks and benefits of EPS/ablation including but not limited to risks of , myocardial infarction, stroke, tamponade which may require emergent cardiac surgery, AV block requiring implantation of a permanent pacemaker, vascular access complications which may require surgery, deep venous thrombosis, pulmonary embolism, infection, risks associated with sedation/anesthesia were discussed with the patient. Risks and benefits specific to AV junction ablation including a risk of being pacemaker dependent i.e. risk of sudden or syncope in case of pacemaker failure. I also emphasized to the patient that this procedure does not prevent atrial fibrillation, is designed for rate control only, and therefore anticoagulation must be continued postprocedure. 4. Catheter based ablation for atrial fibrillation. This is likely to require multiple procedures given persistent atrial fibrillation not responsive to medical therapy with anti arrhythmics. 5. Hybrid surgical and catheter based ablation. This procedure has the highest success rates for control of atrial fibrillation and also has the advantage of reduction in risk of stroke by exclusion of the left atrial appendage. The patient would like to think about his options, review my note and will let us know tomorrow morning as to how he wants to proceed. 06/25/18 16:14 Subjective: Feels better with diuresis. Heart rates are still uncontrolled. Reverted back to atrial fibrillation Reviewed/Discussed With: family, hospitalist, multidisciplinary team, other ( Outpatient Beauty Consultant Dr. William Quinn) Time Spent with Patient: greater than 35 minutes Time Spent with Patient: Greater than 35 minutes spent on this patients care, greater than 50% of time spent counseling, educating, and coordinating care regarding the above mentioned plan. Objective: Vital Signs (8 Hrs) Pulse Resp BP Pulse Ox 06/25/18 11:51 127 H 20 110/87 H 96 06/25/18 09:35 129 H 102/84 H 06/25/18 09:30 129 H 06/25/18 09:27 129 H 102/84 H Intake/Output (24 Hrs) 06/24/18 06/25/18 06/26/18 11:59 11:59 11:59 Intake Total 1300 1700 Output Total 2050 675 Balance -750 1025 Intake: Oral (ml) 1300 1200 IV Infused (ml) 500 Ns 1,000 ml @ TKO IV 500 ONCALL ONE Rx#:[id number] Output: Urine (ml) 2050 675 Toilet 700 675 Urinal 1350 Other: Weight 71.8 kg 72.745 kg Intake Quantity Yes Sufficient Number of Voids Toilet 1 1 Urinal 2 Number of Stools Toilet 1 1 Result Diagrams: 06/21/18 04:38 06/25/18 08:58 Telemetry: Atrial fibrillation, ventricular rates 115-130 beats per minute ICD10 Worksheet Patient Problems: Problems Problem Status Onset COPD (chronic obstructive pulmonary disease) Acute Congestive heart failure Acute Renal failure Acute Atrial fibrillation with RVR Acute Shortness of breath Acute
--- NOTE | 2018-06-25 16:40 | CPEKG ---
Test Reason : OPEN Blood Pressure : / mmHG Vent. Rate : 066 BPM Atrial Rate : 066 BPM P-R Int : 149 ms QRS Dur : 115 ms QT Int : 489 ms P-R-T Axes : 049 -46 148 degrees QTc Int : 513 ms Sinus rhythm Probable left atrial enlargement Nonspecific IVCD with LAD LVH with secondary repolarization abnormality Inferior infarct, old Confirmed by Marquis Millan ([id number]) on 06/25/2018 4:40:07 PM Referred By: Confirmed By:Marquis Millan
[2018-06-25] MEDS: METOPROLOL TARTRATE 50 MG TAB PO SCH (20:00)
[2018-06-25] MEDS: ZOLPIDEM TARTRATE 5 MG TAB PO PRN (22:12)
--- NOTE | 2018-06-26 08:16 | POSTANESTH ---
Post Anesthetic Evaluation Cardiovascular Status: Similar to Pre-Op Cond Respiratory Status: Similar to Pre-op Cond. Level of Consciousness/Mental Status: Can Participate in Eval, Mildly Sleepy, Arousable Pain Control: Adequate, Prn Tx Ordered Nausea/Vomiting Control: Adequate, Prn Tx Ordered Complications Possibly Related to Anesthesia: None Noted
[2018-06-26] MEDS: METOPROLOL TARTRATE 50 MG TAB PO SCH (09:03)
[2018-06-26] MEDS: APIXABAN 5 MG TAB PO SCH ×2 (09:05→21:13)
[2018-06-26] MEDS: FUROSEMIDE 40 MG/4 ML VIAL IVP SCH (09:05)
[2018-06-26] MEDS: SPIRONOLACTONE 25 MG TAB PO SCH (09:05)
--- NOTE | 2018-06-26 10:41 | HOSPPROG ---
Hospitalist Progress Note Assessment/Plan: 62yo M with RA complicated by ILD on chronic steroids here with heart failure exacerbation precipitated by difficult to control atrial fibrillation. Underwent SANDEI-guided DCCV on 06/24 but afib returned on 06/25. His cardiomyopathy is thought to be tachycardia mediated; LVEF is severely low around 10%. This is my first encounter with patient. Cardiology is following closely. #Atrial fibrillation with RVR: HR still elevated although tolerating ok from symptom/hemodynamic stand point. - Up-titrated metoprolol to 75mg BID last night - Sotalol stopped due to prolonged QTc - [id number]=7, on rivaroxaban - Dr Choi discussed several paths forward: rate control, rhythm control (amio) , AV ablation and pacemaker, afib ablation, surgical + catheter ablation. Patient and family still pondering these options. #Acute decompensated HFrEF: Still volume up, net + 1L yesterday per chart. - Received 40mg IV lasix BID yesterday, may need increase, will discuss with cards - Monitor K, Mg - BB, devon #NALINI: Cr 1.2, down from 1.5 at highest. Cardiorenal - Diuresis, monitor daily #Acute on chronic respiratory insufficiency: Stable on 5L, on 3L at home. D/t pulm edema - Diurese as above #Transaminitis: Up a bit today. Hepatic congestion from HF - Monitor every few days #Rheumatoid arthritis, ILD: Last ritux infusion 03/2018 - Continue pred 15mg qd although not helping edema Diet: 2g Na, 2L fluid restriction VTE ppx: therapeutic anticoagulation Code: full Dispo: Remain inpatient Subjective: Had good night, slept well. No dyspnea, leg swelling, chest pain. Denies palpitations. Still thinking about options that Dr Choi had laid out yesterday. and daughter at bedside. Objective: Vital Signs Temp Pulse Resp BP Pulse Ox 36.4 C 136 H 19 113/85 H 95 06/26/18 04:00 06/26/18 09:03 06/26/18 04:00 06/26/18 09:03 06/26/18 04:00 Laboratory Results 06/21/18 04:38 06/26/18 05:59 06/25/18 06/26/18 06/27/18 05:59 05:59 05:59 Intake Total 1220 2080 Output Total 675 1000 Balance 545 1080 PT 19.4 SEC (12.0-15.0) H 06/24/18 04:34 INR 1.62 (0.83-1.16) H 06/24/18 04:34 - Physical Exam Constitutional: no apparent distress, appears nourished, not in pain Eyes: PERRL, anicteric sclera, EOMI Ears, Nose, Mouth, Throat: moist mucous membranes, hearing normal, ears appear normal, no oral mucosal ulcers Cardiovascular: irregularly irregular, JVD (to mid neck while sitting upright), tachycardia, No systolic murmur, No edema Respiratory: no respiratory distress, other (crackles at bilateral bases), No expiratory wheeze Gastrointestinal: normoactive bowel sounds, soft, non-tender abdomen, no palpable masses Skin: no rashes or abrasions, no fluctuance, no induration Musculoskeletal: full muscle strength, no muscle tenderness, normal joint ROM Neurologic: AAOx3, sensation intact bilaterally Psychiatric: other (intermittently tangential) ICD10 Worksheet Patient Problems: Problems Problem Status Onset Atrial fibrillation with RVR Acute COPD (chronic obstructive pulmonary disease) Acute Congestive heart failure Acute Renal failure Acute Shortness of breath Acute
[2018-06-26] MEDS: predniSONE 10 MG TAB PO SCH (11:58)
[2018-06-26] MEDS: SENNOSIDES/DOCUSATE SODIUM TAB PO SCH ×2 (12:03→20:55)
--- NOTE | 2018-06-26 12:56 | PDCARPN ---
Cardiology Progress Note Assessment/Plan: Assessment: 1. Afib with RVR 2. 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 B.i.d. Start digoxin 0.25 mg once daily Phone call placed to his flour inspector Dr. Dooley as well as his attache to discuss his underlying history of interstitial lung disease Patient will stay in the hospital for another day and reassess heart rate tomorrow. Arrange for follow-up in 1 week 06/24/18 11:59 06/26/18 12:56 Subjective: Mr. Orozco is feeling well this AM. No cardiac complaints. I reviewed in detail with him his discussion with Dr. Choi yesterday and potential options to treat his atrial fibrillation. At this point, he is interested in pursuing medical therapy only with rate control with metoprolol and digoxin. He remains on Eliquis 5 mg p.o. B.i.d.. We discussed in detail that he would require close follow-up in the office next week. Explained that if rate control was not efficacious that he would require alternative therapy. I have placed phone calls to his flour inspector Dr. Dooley as well as his attache to discuss his history of idiopathic pulmonary fibrosis. I think that amiodarone remains a potential option for him in the setting of severe biventricular left ventricular dysfunction with LVEF of 10% on transesophageal echocardiogram 2 days ago. We also discussed in detail hybrid approach with Dr. Choi as well as Dr. May as an alternative if medical therapy for rate control was not efficacious and amiodarone was not an acceptable alternative to either his attache or his flour inspector. Of note, he had been on outpatient metoprolol at 200 mg daily. Will increase his metoprolol tartrate 100 mg p.o. B.i.d.. Will add digoxin 0.25 mg once daily. Will also switch him to oral Lasix 40 mg p.o. B.i.d. I spent approximately 40 min reviewing options and medical therapy choices with patient and his family. His and [id number] were in the room during my consultation. Reviewed/Discussed With: family, hospitalist, multidisciplinary team Time Spent with Patient: greater than 25 minutes Time Spent with Patient: Greater than 25 minutes spent on this patients care, greater than 50% of time spent counseling, educating, and coordinating care regarding the above mentioned plan. Objective: Vital Signs (8 Hrs) Pulse Resp BP Pulse Ox 06/26/18 11:54 146 H 17 94/75 L 93 06/26/18 09:03 136 H 113/85 H Intake/Output (24 Hrs) 06/25/18 06/26/18 06/27/18 05:59 05:59 05:59 Intake Total 1220 2080 Output Total 675 1000 Balance 545 1080 Intake: Oral (ml) 720 2080 IV Infused (ml) 500 Ns 1,000 ml @ TKO IV 500 ONCALL ONE Rx#:[id number] Output: Urine (ml) 675 1000 Toilet 675 400 Urinal 600 Other: Weight 72.745 kg 70.8 kg Intake Quantity Yes Sufficient Number of Voids Toilet 1 1 Number of Stools Toilet 1 Result Diagrams: 06/21/18 04:38 06/26/18 05:59 - Physical Exam Constitutional: WDWN Neurologic: AAOx3, CN II-XII grossly intact Psychiatric: cooperative, interactive, following commands ICD10 Worksheet Patient Problems: Problems Problem Status Onset Atrial fibrillation with RVR Acute COPD (chronic obstructive pulmonary disease) Acute Congestive heart failure Acute Renal failure Acute Shortness of breath Acute
--- NOTE | 2018-06-26 15:21 | ASMTCMCOM ---
CM Note CM Note Notes: Dc date still unclear, updates sent to [facility], pt still refusing therapies, CM w/f. DC Plan: [facility] Date Signed: 06/26/2018 03:21 PM Electronically Signed By:Xiao Newsome RN
[2018-06-26] MEDS: FUROSEMIDE 40 MG TAB PO SCH (15:54)
[2018-06-26] MEDS: DIGOXIN 250 MCG TAB PO SCH (15:56)
[2018-06-26] MEDS: HYDROCODONE/APAP 5/325 TAB PO PRN (21:01)
[2018-06-26] MEDS: METOPROLOL TARTRATE 100 MG TAB PO SCH (21:03)
[2018-06-27] MEDS: METOPROLOL TARTRATE 100 MG TAB PO SCH (09:34)
[2018-06-27] MEDS: FUROSEMIDE 40 MG TAB PO SCH (09:34)
[2018-06-27] MEDS: DIGOXIN 250 MCG TAB PO SCH (09:34)
[2018-06-27] MEDS: SENNOSIDES/DOCUSATE SODIUM TAB PO SCH (09:34)
[2018-06-27] MEDS: predniSONE 10 MG TAB PO SCH (09:34)
[2018-06-27] MEDS: APIXABAN 5 MG TAB PO SCH (09:35)
[2018-06-27] MEDS: SPIRONOLACTONE 25 MG TAB PO SCH (09:35)
--- NOTE | 2018-06-27 11:26 | PDCARPN ---
Cardiology Progress Note Assessment/Plan: Assessment: 1. Afib with RVR 2. 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 B.i.d. D/C digoxin 0.25 ( due to starting Amiodarone next week) Continue Lasix 40 mg PO bid Continue Eliquis 5 mg bid Office appt Sunday, July 01, 2018 at 11:45 with DREW Brown at [facility] in [place] Will plan to start Amiodarone load of 400 mg bid on Sunday at appt with DREW Brown Plan for DCCV one week after starting Amiodarone Plan for PFT with DLCO as soon as possible to establish baseline DLCO Discussed with pt and family that if Amiodarone is not successful at maintaining NSR or at least rate controlling his Afib, would recommend moving to Hybrid approach of MAZE and ablation with Drs. Choi and Johan. Pt understands and is agreeable to the above plan Over 45 minutes spent coordinating care Subjective: Mr. Orozco remains in Afib with RVR with rates between 125 and 150 bpm on telemetry. Metoprolol Tartrate was increased to 100 mg bid yesterday. I have discussed his case with his director acute, Dr. Lino Cruz, who felt that although he does have a history of Interstial Lung Disease, it has been stable and that Amiodarone would be acceptable to use in the setting of Afib with RVR and tachymediated myopathy. I have explained this in detail to , his and daughter in law. He is agreeable to try Amiodarone. Since he was recently stopped on sotalol, Jun due to QT prolongation, will need to wait until next week to start amiodarone. Mr. Orozco is agreeable to amiodarone. 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 He refuses and insists on leaving by noon today. Reviewed/Discussed With: family, hospitalist, multidisciplinary team Objective: Vital Signs (8 Hrs) Temp Pulse Resp BP Pulse Ox 06/27/18 09:34 148 H 119/92 H 06/27/18 07:46 36.4 C 148 H 20 119/92 H 86 L 06/27/18 04:00 36.7 C 132 H 20 112/92 H 99 Intake/Output (24 Hrs) 06/26/18 06/27/18 06/28/18 05:59 05:59 05:59 Intake Total 2080 1744 500 Output Total 1000 1150 500 Balance 1080 594 0 Intake: Oral (ml) 2079 1744 500 Output: Urine (ml) 1000 1150 500 Toilet 400 200 Urinal 600 950 500 Other: Weight 70.8 kg 70.8 kg Number of Voids Toilet 1 Result Diagrams: 06/21/18 04:38 06/27/18 06:01 - Physical Exam Neurologic: AAOx3, CN II-XII grossly intact Psychiatric: cooperative, interactive, following commands ICD10 Worksheet Patient Problems: Problems Problem Status Onset Atrial fibrillation with RVR Acute COPD (chronic obstructive pulmonary disease) Acute Congestive heart failure Acute Renal failure Acute Shortness of breath Acute
[2018-06-27 12:09] VITALS: BP 101/88
--- NOTE | 2018-06-27 14:24 | ASMTLACE ---
TEO Length of stay for Answers: 7-13 days current admission Acuity / Level of Answers: Yes Care: Did the patient have an inpatient admission? Comorbidities - select Answers: Chronic pulmonary disease all that apply Congestive heart failure Moderate or severe liver or renal disease Other Notes: rheumatoid arthritis, GERD # of Emergency department Answers: 1-2 visits in the last 6 months Social determinants Answers: Mental health diagnosis (anxiety, depression, pers onality disorders, etc.) Score: 21 Date Signed: 06/27/2018 02:23 PM Electronically Signed By:Rozina Mcgrath RN
--- NOTE | 2018-06-27 14:29 | ASDISCHSUM ---
Discharge Information Plan Status:Home with No Needs Medically Cleared to Leave:06/27/2018 Discharge Date:06/27/2018 CM D/C Disposition:Home, Routine, Self-Care ADT D/C Disposition:Home, Routine, Self-Care Projected Discharge Date:06/24/2018 11:00 AM Transportation at D/C:Family Discharge Delay Reason: Follow-Up Date:06/24/2018 11:00 AM Discharge Slot: Final Diagnosis: Placement Information Referral Type:Palliative Care Referral ID:[id number] Provider Name:[facility] Address 1:[address] Phone Number: Address 2: Fax Number: City:[place] Selection Factors: State:[place] Patient Contact Information Contact Name:CLARISA Relationship: Address:[address] City:[facility] [facility] Phone: State/Zip Code:[place] [address] Email: Financial Information Financial Class:[employer] [place] Primary Plan Desc:[facility] Primary Plan Number:[id number] Secondary Plan Desc: Secondary Plan Number: Assessment Information LACE LACE Length of stay for Answers: 7-13 days current admission Acuity / Level of Answers: Yes Care: Did the patient have an inpatient admission? Comorbidities - select Answers: Chronic pulmonary disease all that apply Congestive heart failure Moderate or severe liver or renal disease Other Notes: rheumatoid arthritis, GERD # of Emergency department Answers: 1-2 visits in the last 6 months Social determinants Answers: Mental health diagnosis (anxiety, depression, pers onality disorders, etc.) Score: 21 Date Signed: 06/27/2018 02:23 PM Electronically Signed By:Rozina Mcgrath RN [facility] CM Progress Note CM Note CM Note Notes: Patient admitted for Sotalol loading. He has a significant medical and cardiac hx including Afib w RVR, CHF, COPD, and CKD. He is followed by [facility]. Patient is normally independent, , employed. PT/OT ordered and pending. Case Management will follow for any d/c needs. Date Signed: 06/21/2018 01:56 PM Electronically Signed By:Ryanne Gonzalez RN [facility] Progress Note CM Note CM Note Notes: Addendum to CM note: Patient is current with [facility]. Referral sent; they will continue to follow. Date Signed: 06/21/2018 02:37 PM Electronically Signed By:Ryanne Gonzalez RN [facility] Progress Note CM Note CM Note Notes: Pt underwent ASNDIE and cardioversion today. Pt unavailable to speak with CM, but CM spoke with RN who stated pt has been refusing therapy evals and threatening to leave AMA. Message relayed to through RN that CM is available should they feel they need support at home but pt would need to participate with therapy. [facility]. Referral already sent to [facility]. Pt presumably independent upon discharge. CM to follow. D/C Plan: Home with [facility] Date Signed: 06/24/2018 03:49 PM Electronically Signed By:Maryjane John [facility] CM Progress Note CM Note CM Note Notes: Dc date still unclear, updates sent to [facility], pt still refusing therapies, CM w/f. DC Plan: [facility] Date Signed: 06/26/2018 03:21 PM Electronically Signed By:Xiao Newsome RN Case Management Discharge Plan Note Case Management Discharge Discharge Order Complete? Answers: Yes Patient to Obtain Answers: via Family Medications Transportation Arranged Answers: Family/Friends Faxed Final Orders Answers: Yes Notes: to [facility] Agency/Facility Transfer Answers: Yes Notes: to [facility] Report Printed & Faxed to Receiving Agency Family Notified Answers: Yes Notes: in room Discharge Comments Notes: 06/27/2018 Case Management Note Met w/pt to discuss d/c needs. is happy with [facility]. Reports [facility] to visit with pt on Sunday. Faxed final orders to [facility] requesting a Assistant Account Executive attend meeting on Sunday at 's request. reports frustration that pt may not be understanding the consequences of his decisions and his recovery. Pt and declined any further assistance from case management. Date Signed: 06/27/2018 02:28 PM Electronically Signed By:Rozina Mcgrath RN Intervention Information
--- NOTE | 2018-06-27 14:29 | ASMTDCNOTE ---
Case Management Discharge Discharge Order Complete? Answers: Yes Patient to Obtain Answers: via Family Medications Transportation Arranged Answers: Family/Friends Faxed Final Orders Answers: Yes Notes: to [facility] Agency/Facility Transfer Answers: Yes Notes: to [facility] Report Printed & Faxed to Receiving Agency Family Notified Answers: Yes Notes: in room Discharge Comments Notes: 06/27/2018 Case Management Note Met w/pt to discuss d/c needs. is happy with [facility]. Reports [facility] to visit with pt on Sunday. Faxed final orders to [facility] requesting a Stonework Tracer attend meeting on Sunday at 's request. reports frustration that pt may not be understanding the consequences of his decisions and his recovery. Pt and declined any further assistance from case management. Date Signed: 06/27/2018 02:28 PM Electronically Signed By:Rozina Mcgrath RN
--- NOTE | 2018-06-27 17:25 | PDDCSUM ---
Discharge Summary Discharge Summary: Date of Admission: 06/20/2018 Date of Discharge: 06/26/2018 Consultants: cardiology Procedures: SANDIE-guided DCCV on 06/24 Discharge Diagnoses: 1. Atrial fibrillation with RVR, uncontrolled 2. Acute on chronic decompensated HFrEF (tachycardia-mediated, LVEF 10%) 3. NALINI 4. Acute on chronic hypoxemic respiratory insufficiency 5. Transaminitis 6. Rheumatoid arthritis 7. Interstitial lung disease 8. Odd affect Brief Hospital Course: 62yo M with RA complicated by ILD on chronic oxygen and steroids presented with acute on chronic heart failure exacerbation precipitated by difficult to control atrial fibrillation. Started on sotalol and underwent SANDIE-guided DCCV on 06/24 but afib returned on 06/25. Addditionally, his QTc prolonged so sotalol was stopped. He met with Dr Choi who discussed several strategies moving forward ; patient refusing ablation/pacemaker placement or surgical procedures at this time. Thus, we were left with rate and rhythm control. His metoprolol was uptitrated without much effect. Digoxin was considered but, ultimately, cardiology proposed amiodarone load after discussing with his slip cover cutter who was ok with him getting this with his ILD. Unfortunately, patient adamant about leaving the hospital and did not want to stay for his sotalol to washout before loading with amiodarone. His rates were not controlled at discharge however he was asymptomatic, not hypotensive, and much more compensated from a volume perspective. He was dc'd on lasix 40mg BID, metoprolol 100mg BID, devon 25, apixaban. He has follow up in [facility] in 5 days with plan to start amiodarone at that time. He was requiring 4L supplemental O2 at discharge (on 3- 4 at baseline). Medications: Please refer to EMR for complete list. Changes this admission include addition of lasix and metoprolol tartrate and discontinuation of lisinopril, acetazolomide. Follow Up Plan: 1. [facility] clinic visit with Aubree Redd on Sunday, 07/01 at 11:45am 2. Plan to start amiodarone load of 400mg BID at above appointment 3. Plan for DCCV without SANDIE one week after starting amiodarone 4. Needs PFTs with DLCO as soon as possible 5. If amiodarone unsuccessful, recommend hybrid MAZE and ablation with Drs. Choi and Johan Physical Exam: Vitals and telemetry reviewed, tachycardic with HR 120-140s with afib. Alert and oriented, no focal neuro deficits. Irregularly irregular and tachycardic. Elevated JVD to mid-neck while upright. No lower extremity edema. Abdomen mildly distended but soft and nontender.
== END 2018-06-27 14:18 | disposition home or self-care (01) | DRG 308 ==
LOC: F2W 15:39
PROVIDERS: ADMIT Internal Medicine; ATTEND Internal Medicine
PROC: 5A2204Z Restoration of Cardiac Rhythm, Single (ICD-10-PCS; principal; 2018-06-24)
PROC: B245ZZ4 Ultrasonography of Left Heart, Transesophageal (ICD-10-PCS; principal; 2018-06-24)
DX: I48.91 Unspecified atrial fibrillation (principal); I13.0 Hypertensive heart and chronic kidney disease with heart failure and stage 1 through stage 4 chronic kidney disease, or unspecified chronic kidney disease; J96.21 Acute and chronic respiratory failure with hypoxia; N17.9 Acute kidney failure, unspecified; J84.9 Interstitial pulmonary disease, unspecified; I50.9 Heart failure, unspecified; M06.9 Rheumatoid arthritis, unspecified; I45.81 Long QT syndrome; J44.9 Chronic obstructive pulmonary disease, unspecified; N18.9 Chronic kidney disease, unspecified; I42.9 Cardiomyopathy, unspecified; Z99.81 Dependence on supplemental oxygen; Z79.01 Long term (current) use of anticoagulants
CPT/HCPCS: 82435-PO; 82565-PO; 82947-PO; 84132-PO; 84295-PO; 84484-PO; 84520-PO; 85014-PO; 96365; J0461; J1940; J2270; J2704; J7512; Q9957; Q9967

== ENCOUNTER → 2018-07-18 | Outpatient (CLI) | payer OTHER | LOC: FCPNEURO 21:00 | PROVIDERS: ATTEND Psychiatry & Neurology Sleep Medicine | DX: G47.33 Obstructive sleep apnea (adult) (pediatric) (principal) ==

== ENCOUNTER 2018-08-17 16:13 | Inpatient (IN) | payer OTHER ==
--- NOTE | 2018-08-17 17:51 | EDPHY ---
H & P Time Seen by Provider: 08/17/18 17:11 HPI/ROS: HPI Fatigue, shortness of breath, history of CHF. 63-year-old male by private vehicle with his . This patient has a history of congestive heart failure. He was admitted to the hospital for congestive heart failure in April and June of this year. He was discharged from his last visit in June with an ejection fraction of 10 according to his . He is currently on Lasix at 20 mg twice daily. He also takes metoprolol. Please see his medication list for further details. He presents the emergency department now complaining of fatigue, yaima shortness of breath with any physical activity, worsening over the last 3 days. No chest pain. He also has a history of atrial fibrillation and is on Eliquis. ROS: Constitutional: No fever, no chills. As above. Eyes: No discharge. No changes in vision. ENT: No sore throat. No nasal congestion or rhinorrhea. Respiratory: No cough. As. Cardiac: No chest pain, no palpitations. Gastrointestinal: No abdominal pain, no vomiting, no diarrhea. Genitourinary: No hematuria. No dysuria or increased frequency with urination. Musculoskeletal: No back pain. No neck pain. No myalgias or arthralgias. Skin: No rashes. Neurological: No headache. No focal weakness or altered sensation. Past medical history: IBS, spinal stenosis, rheumatoid arthritis, cholecystectomy, inguinal hernia repair x2, COPD, atrial fibrillation, currently on Eliquis, congestive heart failure. 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 Ruben Quinn. Social history: Former smoker. No alcohol. Here with his . Physical Exam: General Appearance: Alert, he is not in distress currently. On face mask oxygen at 5 L currently with pulse oximetry of 88%. This patient is responding to questions appropriately and in full sentences. This patient appears well- hydrated and well-nourished. Eyes: Pupils equal and round no pallor or injection. No lid edema, erythema or injection. Respiratory: There are no retractions, lungs are clear to auscultation anteriorly, he has crackles at the bases posteriorly and diminished air movement. No tachypnea. Cardiovascular: Irregular, irregular tachycardia. No murmur appreciated. Gastrointestinal: Abdomen is soft and nontender, no masses, bowel sounds normal. No focal tenderness at McBurney's point. No Watkins sign. Neurological: Motor sensory function is grossly intact. Cranial nerves are normal. Gait is normal. Skin: Warm and dry, no rashes. Musculoskeletal: Neck is supple and nontender. Extremities are symmetrical. Trace lower extremity edema. Slightly greater on the right side versus left side. All joints range without pain or impingement. Psychiatric: No agitation. No depression. Database: EKG: EKG time is 5:01 p.m.: EKG shows a atrial fibrillation with nonspecific interventricular conduction delay, left anterior fascicular block and ventricular rate average of 128. Left ventricular hypertrophy is noted. Interpreted by me. Imaging: Chest x-ray AP portable; the cardiac mediastinal silhouette is unremarkable. No evidence of infiltrate or pneumothorax. CHF with interstitial edema noted. No other acute cardiopulmonary disease process noted. Interpreted by me. Procedures: Emergency department course: IV placed. The patient was placed on a registered nurse cardiac telemetry. He was placed on oxygen at 5 L by nasal cannula in triage. Pulse oximetry on this 98%. 6:00 p.m.. On my evaluation blood pressure currently 99/71. business unit manager shows a narrow complex atrial fibrillation with ventricular rate average of 105. Pulse oximetry on 10 L of facemask oxygen is 91%. After review of the patient's chest x-ray will be given 40 mg of IV Lasix. I discussed starting CPAP on him but he does not want to do this currently. He also tells me that he has chronic tachycardia and is at close to his baseline rate. He has refused to take antiarrhythmic medications. I will withhold aggressive rate control for the time being. We will obviously watch his condition closely and start noninvasive ventilation if needed. Hospitalist paged for admission. 6:10 p.m., spoke with on-call hospitalist Dr. Morse. Case discussed in detail with him. He accepts this patient for admission to the step-down unit. The patient's remaining emergency department course under my care has been uneventful. The patient was admitted to the step-down unit in guarded condition. Differential Diagnosis: The differential diagnosis on this patient includes but is not limited to congestive heart failure exacerbation, atrial fibrillation with rapid ventricular response, hypotension. Sepsis, pneumonia unlikely. This represents a partial list of diagnoses considered. These considerations are based on history, physical exam, past history, reassessment and diagnostic testing. Smoking Status: Never smoked Constitutional: Initial Vital Signs Temperature (C) 36.5 C 08/17/18 16:36 Heart Rate 132 H 08/17/18 16:36 Respiratory Rate 20 08/17/18 16:36 Blood Pressure 99/83 H 08/17/18 16:36 O2 Sat (%) 95 08/17/18 16:36 O2 Delivery Mode Room Air O2 (L/minute) 6 Allergies/Adverse Reactions: eluxadoline [From Viberzi] Allergy (Verified 08/17/18 16:33) metronidazole [From Flagyl] Allergy (Verified 08/17/18 16:33) Home Medications: Medication Instructions Recorded Diazepam [Valium 5 MG (*)] 5 mg PO QID PRN 04/17/18 Hydrocodone/Acetaminophen [[place] 0.5 - 1 each PO Q6 PRN 04/17/18 5/325 (*)] Mag/Aluminum/Sod Bicarb/Alginc 2 each PO DAILY PRN 04/18/18 [Gaviscon 80-14.2 mg Tab Chew] Apixaban [Eliquis] 5 mg PO BID #60 tab 04/21/18 Spironolactone [Aldactone 25 MG 25 mg PO DAILY #30 tab 04/26/18 (*)] Nystatin Powder [Mycostatin Powder] 1 roshan TP DAILY 06/20/18 predniSONE 5 mg PO DAILY 06/20/18 Metoprolol Tartrate [Lopressor 100 100 mg PO BID #60 tab 06/27/18 mg (*)] Furosemide [Lasix 40 MG (*)] 20 mg PO BID@0900,1500 08/17/18 Zolpidem Tartrate [Ambien 5MG (*)] 10 mg PO HS PRN 08/17/18 Medical Decision Making - Data Points Laboratory Results: Laboratory Results 08/17/18 17:15 08/17/18 17:15 Medications Given: Hydrocodone Bitart/Acetaminophen ([place] 5/325) 0.5 - 1 tab PO Q6 PRN PRN Reason: Pain, Breakthrough Stop: 08/27/18 20:51 Last Admin: 08/18/18 14:03 Dose: 1 tab Enoxaparin Sodium (Lovenox) 60 mg SC BID NARESH Stop: 02/14/19 11:14 Last Admin: 08/18/18 12:25 Dose: 60 mg Furosemide (Lasix) 20 mg PO BID@0900,1500 [facility] Stop: 02/14/19 08:59 Last Admin: 08/18/18 14:05 Dose: 20 mg Metoprolol Tartrate (Lopressor) 25 mg PO BID NARESH Stop: 02/13/19 22:14 Last Admin: 08/18/18 09:30 Dose: 25 mg Nystatin (Mycostatin Powder) 1 roshan TP DAILY NARESH Stop: 09/17/18 08:59 Last Admin: 08/18/18 12:24 Dose: 1 roshan Prednisone (Prednisone) 5 mg PO DAILY NARESH Stop: 02/14/19 08:59 Last Admin: 08/18/18 09:30 Dose: 5 mg Spironolactone (Aldactone) 25 mg PO DAILY NARSEH Stop: 02/14/19 08:59 Last Admin: 08/18/18 09:30 Dose: 25 mg Zolpidem Tartrate (Ambien) 10 mg PO HS PRN PRN Reason: *Sleep Stop: 02/13/19 20:51 Last Admin: 08/17/18 21:41 Dose: 10 mg Discontinued Medications Apixaban (Eliquis) 5 mg PO BID NARESH Stop: 02/13/19 20:59 Last Admin: 08/18/18 12:35 Dose: Not Given Furosemide (Lasix Injection) 40 mg IVP EDNOW ONE Stop: 08/17/18 18:08 Last Admin: 08/17/18 18:31 Dose: 40 mg Metoprolol Tartrate (Lopressor) 100 mg PO BID NARESH Stop: 02/13/19 20:59 Last Admin: 08/17/18 22:43 Dose: Not Given Point of Care Test Results: Chemistry 08/17/18 17:21 POC Troponin I 0.02 ng/mL ng/mL (0.00-0.08) Departure - Departure Disposition: [facility] Acute Clinical Impression: Renal insufficiency, Congestive heart failure, Atrial fibrillation with rapid ventricular response Condition: Fair
[2018-08-17 17:52] LABS: PLATELET COUNT 124 10^3/uL (150-400)
[2018-08-17 17:53] LABS: INR 1.66 (0.83-1.16); PROTIME(PATIENT) 19.7 SEC (12.0-15.0)
[2018-08-17] MEDS ORDERED: FUROSEMIDE 40 MG/4 ML VIAL IVP ONE (18:07)
[2018-08-17] MEDS ORDERED: ACETAMINOPHEN 325 MG TAB PO PRN (20:51)
[2018-08-17] MEDS ORDERED: ONDANSETRON 4 MG/2 ML VIAL IVP PRN (20:51)
[2018-08-17] MEDS ORDERED: ONDANSETRON DISINTEGRATING 4 MG TAB PO PRN (20:51)
[2018-08-17] MEDS ORDERED: SOD BICARB PO PRN (20:52)
[2018-08-17] MEDS ORDERED: ALUMINUM PO PRN (20:52)
[2018-08-17] MEDS ORDERED: DIAZEPAM 5 MG TAB PO PRN (20:52)
[2018-08-17] MEDS ORDERED: ALGINC PO PRN (20:52)
[2018-08-17] MEDS ORDERED: MAG PO PRN (20:52)
[2018-08-17] MEDS ORDERED: METOPROLOL TARTRATE 100 MG TAB PO SCH (21:00)
[2018-08-17] MEDS: ZOLPIDEM TARTRATE 5 MG TAB PO PRN (21:41)
[2018-08-17] MEDS: APIXABAN 5 MG TAB PO SCH (21:41)
[2018-08-17] MEDS: HYDROCODONE/APAP 5/325 TAB PO PRN (21:42)
--- NOTE | 2018-08-17 22:07 | GHP ---
DATE OF ADMISSION: 08/17/2018 CHIEF COMPLAINT: Fatigue, dyspnea. HISTORY OF PRESENT ILLNESS: This is a 63-year-old male. He has a history of atrial fibrillation wit h rapid ventricular response. It has been very difficult to control. It has been recommended to him for the last couple months that he should get an A-V node ablation with pacemaker. He has, however, refused. He was admitted to the hospital in early June with AFib with RVR and CHF exacerbation. At that time, their plan was to switch him over from sotalol to amiodarone. However, he left agains t medical advice prior to this being done. Over the last month, though, he has been worsening with i ncreasing dyspnea on exertion, as well as overall fatigue. He started treatment for obstructive slee p apnea with CPAP and that is helping him sleep. Yesterday, his had a visit with Dr. Quinn, who explained the options and his inevitable decline if there is no intervention that is being done. The patient is now agreeing and has come for further treatment. He is short of breath currently. He is not having any chest pain. He is taking anticoagulation. He has significant fatigue. REVIEW OF SYSTEMS: A 10-point review of systems was obtained and other than that stated was negative . PAST MEDICAL HISTORY: 1. Atrial fibrillation with rapid ventricular response. 2. Rheumatoid arthritis. 3. Interstitial lung disease. 4. Spinal stenosis. 5. CHF with EF of 10%. MEDICATIONS: Reviewed. SOCIAL HISTORY: Occasional smoking. 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 FAMILY HISTORY: Reviewed and noncontributory. PHYSICAL EXAM: VITAL SIGNS: Afebrile, blood pressure is 99/78, heart rate in the 120s to 140s atria l fibrillation, oxygen saturation 88% on 6 L. GENERAL: Patient is chronically ill appearing, but in no apparent distress. HEENT: Nonicteric sclerae. Extraocular muscles intact. NECK: Supple. The re is JVD. CARDIOVASCULAR: Tachycardic. No murmurs, rubs, gallops. ABDOMEN: Positive bowel sound s. Soft, nontender, nondistended. LUNGS: Decreased breath sounds. Some bibasilar rales. EXTREMIT IES: No clubbing, cyanosis, or edema. SKIN: Without rash, dry, intact. NEUROLOGIC: Alert and gatito ented x3. Moving all 4 extremities equally. PSYCHIATRIC: Normal affect. LABS: White blood cell count 8. Creatinine 1.4. BNP 14,000 which is above his baseline. Chest x-r ay, personally reviewed and interpreted, shows interstitial edema over interstitial lung disease. EK G shows atrial fibrillation with rapid ventricular response. ASSESSMENT: This is a 63-year-old male with [id number] atrial fibrillation and tachycardia induced cardiomyopathy. PLAN: 1. Atrial fibrillation with rapid ventricular response. He has been in this heart rate for several months. His blood pressure is a little bit soft. I am not going to do anything aggressive to decrea se his heart rate. I have discussed the case with Cardiology who will see the patient in the morning . We will continue his metoprolol dosing, as well as his Eliquis. 2. CHF exacerbation. The patient did receive a dose of IV Lasix in the ER. We will see how he resp onds to this. We will continue his home dose of Lasix and may give extra IV dose in the morning. 3. Interstitial lung disease. This is chronic. 4. Rheumatoid arthritis. 5. Chronic kidney disease. Creatinine is at his baseline. /[id number]/MODL
[2018-08-17] MEDS: METOPROLOL TARTRATE 25 MG TAB PO SCH (22:26)
[2018-08-18] MEDS: FUROSEMIDE 40 MG TAB PO SCH ×2 (09:29→14:05)
[2018-08-18] MEDS: SPIRONOLACTONE 25 MG TAB PO SCH (09:30)
[2018-08-18] MEDS: METOPROLOL TARTRATE 25 MG TAB PO SCH ×2 (09:30→20:03)
[2018-08-18] MEDS: predniSONE 10 MG TAB PO SCH (09:30)
--- NOTE | 2018-08-18 10:01 | SOAPPROG ---
SOAP Progress Note Assessment/Plan: Assessment: 63 year old male with pmh of CHF LVEF of 10%, poorly controlled afib , ILD, RA, who presented to the ER with worsening shortness of breath. Today breathing better. Plan: acute exacerbation of CHF- LVEF of 10% in past. Case discussed with EP who will perform an AVN ablation on Sunday along with placement of a micropacer. In the interval would continue lasix, aldactone, lopressor. Will need eliquis held for washout. Afib with RVR- on lopressor with poor rate control. Rates initially in the 140- 150s. Rates currently better, hovering 90-110's. Amiodarone has been discussed in the past but patient is averse given his underlying ILD. EP recommends amiodarone gtt if pressures above 100 systolic and rate remains poorly controlled. Patient not amenable. Will continue with lopressor for now, and plan for AVN ablation on Sunday. Eliquis being held for procedure. NALINI- creatinine 1.4 on admission likely due to cardiorenal and poor perfusion in setting of hypotension and afib. creatinine improved overight. Use caution with diuresis, and monitor renal function. ILD- baseline oxygen use of 3-5 liters. on prednisone 5mg daily. Currently back on baseline oxygen. cont prednisone, and oxygen titrated to 90% JOSH- on CPAP. continue COPD- on 3-5 liters, currently at base. cont oxygen PRN titrated, and PRN nebs. RA- receives rituxan infusions. 08/18/18 10:00 08/18/18 10:42 08/18/18 11:06 Objective: Vital Signs Temp Pulse Resp BP Pulse Ox 36.5 C 149 H 21 H 107/65 100 08/18/18 08:00 08/18/18 08:00 08/18/18 08:00 08/18/18 08:00 08/18/18 08:00 Laboratory Results 08/18/18 06:10 08/17/18 08/18/18 08/19/18 05:59 05:59 05:59 Intake Total 0 Balance 0 PT 19.7 SEC (12.0-15.0) H 08/17/18 17:15 INR 1.66 (0.83-1.16) H 08/17/18 17:15 ICD10 Worksheet Patient Problems: Problems Problem Status Onset COPD (chronic obstructive pulmonary disease) Acute Congestive heart failure Acute Renal failure Acute Atrial fibrillation with RVR Acute Shortness of breath Acute Renal insufficiency Acute
--- NOTE | 2018-08-18 10:30 | GCON ---
INSTRUCTOR APPAREL MANUFACTURE CONSULTATION REASON FOR ADMISSION: Atrial fibrillation and congestive heart failure with exacerbation. HISTORY: The patient is a very pleasant 63-year-old white male with a past medical history of atrial fibrillation, rheumatoid arthritis, interstitial lung disease, spinal stenosis, congestive heart camilla lure with low ejection fraction, and recently diagnosed obstructive sleep apnea. He presents again w ith atrial fibrillation in rapid response an acute exacerbation of his congestive heart failure. He has been seen by Cardiology. In discussion with patient, he states that overall feels somewhat better. He is on supplemental oxyg en and his breathlessness has improve some. He denies any chest pain, pleuritic-type chest pain, or angina equivalent. There is no fever or night sweats. His primary reel fed printer is Dr. William Quinn. REVIEW OF SYSTEMS: 10-point review of systems is performed and negative, except for what is listed i n HPI. ALLERGIES: No known medications. SOCIAL HISTORY: Longstanding history of smoking. No significant alcohol use. He is , has ex cellent family support. 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 PAST MEDICAL HISTORY: Significant for congestive heart failure with low ejection fraction, interstit ial lung disease, atrial fibrillation with rapid ventricular response, rheumatoid arthritis, spinal s tenosis. FAMILY HISTORY: Noncontributory. PHYSICAL EXAM: VITAL SIGNS: Blood pressure 107/65, pulse 149, respirations 21, temperature 36.5, ox ygen saturation 100% on 5 L. GENERAL: He is a thin, well-developed, elderly white male who is curre ntly resting comfortably, but somewhat tachycardic. HEENT: Eyes: KO, EOMI. Throat shows no eryt kevin or tonsillar hypertrophy. NECK: Supple. No cervical adenopathy. HEART: Irregularly irregula r with a 2/6 systolic murmur left sternal border without radiation. LUNGS: Diminished breath sounds . ABDOMEN: Soft, nontender. Bowel sounds are present. EXTREMITIES: No clubbing, cyanosis, or jennifer ma. LABORATORY DATA: White count is 8.6, hemoglobin 16, hematocrit 51, platelet count is 124. INR is 1. 66. Sodium 138, potassium 4.0, chloride 103, CO2 is 29, BUN 34, creatinine 1.3, glucose is 105. BNP is markedly elevated at 11,000. IMPRESSION: 1. Atrial fibrillation with rapid ventricular response. 2. Severe cardiomyopathy with ejection fraction of 10%. 3. History of chronic obstructive pulmonary disease. 4. History of interstitial lung disease, likely secondary to his rheumatoid arthritis. 5. Rheumatoid arthritis. 6. Spinal stenosis. RECOMMENDATIONS: 1. Cardiology has been consulted. 2. Treat with nebulizer using both albuterol and Atrovent. 3. Continue CPAP at night. 4. DVT and PE prophylaxis. 5. Stress ulcer prophylaxis. 6. Anticipate pacemaker placement later on this week. /[id number]/MODL
--- NOTE | 2018-08-18 11:04 | PDCARPN ---
Cardiology Progress Note Assessment/Plan: Assessment: 1. Atrial fibrillation with uncontrolled ventricular rates 2. Tachycardia mediated cardiomyopathy Plan: I had a 1 hr conversation with the patient, RN and patient's . I also discussed the case by phone with patient's loading unit tool setter Dr. William Quinn. His has medical power of deputy county attorney. Patient has tachycardia mediated cardiomyopathy. He has refused antiarrhythmic drug therapy with amiodarone. He has LV ejection fraction is declining and he has class 3-4 heart failure. Several options reviewed: 1. Surgical maze procedure - patient will not tolerate given psych issues and poor LVEF 2. Catheter based ablation - not 100% success rate, if does not help will need AV node ablation. Patient is not amenable to multiple procedures and wants definitive therapy 3. Amiodarone - patient refuses including today. 4. BiV pacemaker + AV node ablation - given his psych issues Dr. Quinn and I have concern that he will twiddle the device, dislodge leads and this will lead to asystole/sudden 5. Micra pacemaker + AV node ablation - patient only agreeable to single procedure, so will do at the same time. They understand risks of device including dislodgement, bleeding, cardiac perforation. They also understand that if LVEF may not improve post RV pacing only with AV node ablation and he may need BiV pacing down the road with an entirely new system. Complex situation, 1 hr with patient and , >50% counseling. 08/18/18 10:58 Subjective: Fatigue, dyspnea Reviewed/Discussed With: family, hospitalist, multidisciplinary team Time Spent with Patient: greater than 35 minutes Time Spent with Patient: Greater than 35 minutes spent on this patients care, greater than 50% of time spent counseling, educating, and coordinating care regarding the above mentioned plan. Objective: Vital Signs (8 Hrs) Temp Pulse Resp BP Pulse Ox 08/18/18 08:00 36.5 C 149 H 21 H 107/65 100 08/18/18 04:00 110 H 15 97/67 L 96 Intake/Output (24 Hrs) 08/16/18 08/17/18 08/18/18 11:59 11:59 11:59 Intake Total 0 Balance 0 Intake: IV Infused (ml) 0 Other: Number of Voids 30 Toilet 5 Result Diagrams: 08/17/18 17:15 08/18/18 06:10 Cardiac Labs: Cardiac Lab Results (72 Hrs) 08/18/18 06:10 Troponin I 0.028 Telemetry: Atrial fibrillation with uncontrolled ventricular rates ICD10 Worksheet Patient Problems: Problems Problem Status Onset COPD (chronic obstructive pulmonary disease) Acute Congestive heart failure Acute Renal failure Acute Atrial fibrillation with RVR Acute Shortness of breath Acute Renal insufficiency Acute
[2018-08-18] MEDS: NYSTATIN POWDER 15 GM BTL TP SCH (12:24)
[2018-08-18] MEDS: ENOXAPARIN 60 MG/0.6 ML SYR SC SCH ×2 (12:25→20:03)
[2018-08-18] MEDS: APIXABAN 5 MG TAB PO SCH (12:35)
[2018-08-18] MEDS: HYDROCODONE/APAP 5/325 TAB PO PRN ×2 (14:03→22:27)
--- NOTE | 2018-08-18 18:59 | CPEKG ---
Test Reason : OPEN Blood Pressure : / mmHG Vent. Rate : 128 BPM Atrial Rate : 108 BPM P-R Int : 084 ms QRS Dur : 113 ms QT Int : 340 ms P-R-T Axes : 161 -43 148 degrees QTc Int : 496 ms Atrial fibrillation Left anterior fascicular block LVH with secondary repolarization abnormality Anterior Q waves, possibly due to LVH Confirmed by Olga Lidia Garcia ([id number]) on 08/18/2018 6:58:31 PM Referred By: Confirmed By:Olga Lidia Garcia
--- NOTE | 2018-08-18 20:17 | PDMN ---
Medical Necessity Medical necessity: MCG M190 heart failure A-2 days increasing dyspnea on exertion, overall fatigue, , afib with RVR., PMHx afib with RVR, JOSH on CPAP , rheumatoid arthritis, interstitial lung disease, spinal stenosis, CHF with EF of 10% anticipate > 2 MN ongoing med nec care, further eval and tx. cards consult pend.
[2018-08-18] MEDS: ZOLPIDEM TARTRATE 5 MG TAB PO PRN (22:26)
[2018-08-19] MEDS: FUROSEMIDE 40 MG TAB PO SCH ×2 (08:18→16:03)
[2018-08-19] MEDS: ENOXAPARIN 60 MG/0.6 ML SYR SC SCH ×2 (08:18→20:19)
[2018-08-19] MEDS: METOPROLOL TARTRATE 25 MG TAB PO SCH ×2 (08:19→20:18)
[2018-08-19] MEDS: predniSONE 10 MG TAB PO SCH (08:19)
[2018-08-19] MEDS: SPIRONOLACTONE 25 MG TAB PO SCH (08:19)
[2018-08-19] MEDS: NYSTATIN POWDER 15 GM BTL TP SCH (08:27)
--- NOTE | 2018-08-19 09:41 | PDCARPN ---
Cardiology Progress Note Chief Complaint: a.fib Assessment/Plan: Assessment/Plan: The patient is a 63 y/o M with a history of a.fib and tachycardic induced CMP with EF of 10%. He has had multiple conversation with Dr. Choi and his primary fender mechanic Dr. Quinn. He has refused antiarrhythmic therapy. Multiple options were discussed with him by Dr. Choi yesterday. Please see prior note for details. He refused antiarrhythmic therapy. Yesterday the decision was made to proceed with micra pacer and AV donald ablation by Dr. Choi. They would like to meet with Dr. Choi again today to discuss the risk versus benefits of a BIV pacer and Micra pacer. Eliquis is on hold and he is on Lovenox for anticoagulation. He will have his last dose this evening and be NPO after midnight. Will check a echo today to assess his EF. Dr. Choi will also discuss options today. 08/19/18 12:38 Subjective: He is complaining of abdominal pain related to IBS. It is not unusual for him. He denies any CP. Reviewed/Discussed With: other (Dr. Choi EP) Time Spent with Patient: greater than 25 minutes Time Spent with Patient: Greater than 25 minutes spent on this patients care, greater than 50% of time spent counseling, educating, and coordinating care regarding the above mentioned plan. Objective: Vital Signs (8 Hrs) Temp Pulse Resp BP Pulse Ox 08/19/18 08:19 139 H 93/80 L 08/19/18 08:17 36.5 C 139 H 20 93/80 L 89 L 08/19/18 04:00 36.4 C 136 H 20 100/82 H 93 Intake/Output (24 Hrs) 08/18/18 08/19/18 08/20/18 05:59 05:59 05:59 Intake Total 0 1725 Output Total 100 Balance 0 1625 Intake: Oral (ml) 1725 IV Infused (ml) 0 Output: Urine (ml) 100 Toilet 100 Other: Number of Voids 30 Toilet 5 2 Number of Stools Toilet 1 Result Diagrams: 08/17/18 17:15 08/18/18 06:10 Cardiac Labs: Cardiac Lab Results (72 Hrs) 08/18/18 06:10 Troponin I 0.028 Telemetry: a.fib with RVR - Physical Exam Constitutional: no apparent distress, other (Pt was complaining of abdominal pain and did not want to be disturbed. Later he was sleeping) ICD10 Worksheet Patient Problems: Problems Problem Status Onset Atrial fibrillation with RVR Acute Congestive heart failure Acute Renal insufficiency Acute COPD (chronic obstructive pulmonary disease) Acute Renal failure Acute Shortness of breath Acute
--- NOTE | 2018-08-19 12:01 | ECHO ---
[email or web address] [address] [address] Main: [phone] Fax: Transthoracic Echocardiogram Name: RAHEEL LOCKHART MR#: [id number] Study Date: 08/19/2018 Study Time: 11:16 AM Date of : 1955 Age: 63 year(s) Height: 175.3 cm (69 in.) Weight: 71.21 kg (157 lb.) BSA: 1.86 m2 Gender: Male Examination: Echo Indication: CHF Image Quality: Good Contrast: Requested by: Aubree Redd BP: 93 mmHg/80 mmHg Heart Rate: Rhythm: Indication: CHF Procedure Staff [employer]atch [employer] Operator: Irish Rutledge [facility] Reading Physician: Marquis Millan MD Requesting Provider: Conclusions: Left ventricle upper limits of normal. No LV hypertrophy. Severely reduced systolic LV function. The ejection fraction is estimated to be 10-15 %. Diastolic dysfunction is present. . Normal size right ventricle. Moderately to severely reduced right ventricular function. There is a moderator band noted in the right ventricle. The left atrium is severely dilated. Atrial septal bowing from right to left. The right atrium is severely dilated. Mild mitral valve regurgitation is present. The aortic valve is normal in appearance and function. The aortic valve is tri-leaflet. Mild tricuspid regurgitation is present. The pulmonic valve is normal in appearance and function. Prior echo (early June 2018) with grossly unchanged systolic function noted on today's echo Measurements: Chambers Valvular Assessment AV/MV Valvular Assessment TV/PV Normal Normal Normal Name Value Range Name Value Range Name Value Range Ao Dulce (MM): 4.0 cm (2.2 cm-3.7 AV Vmax: 1.02 m/s (1 m/s-1.7 TR Vmax: 2.01 mm/s ( - ) cm) m/s) TR PGmax: 16 mmHg ( - ) IVSd (2D): 0.9 cm (0.6 cm-1.1 AV maxP mmHg ( - ) syst. PAP: 21 mmHg ( - ) cm) AV meanP mmHg ( - ) LVDd (2D): 5.5 cm (4.2 cm-5.9 MV E Vmax: 1.00 m/s ( - ) cm) MV A Vmax: 0.19 m/s ( - ) LVDs (2D): 4.8 cm (2.1 cm-4 MV E/A: 5.26 ( - ) cm) Patient: RAHEEL LOCKHART Study Date: 08/19/2018 Page 1 of 2 11:16 AM LVPWd (2D): 1.0 cm (0.6 cm-1 cm) LVEF (BP): 19 % (>=55 %) EF Range: 10-15 % Continued Measurements: Chambers Valvular Assessment AV/MV Valvular Assessment TV/PV Name Value Name Value Name Value LADs: 4.9 cm MV E/E' Septal: 22.30 CVP (est.): 5 mmHg LADs Lon.1 cm MV E/E' Lateral: 16.30 LA Area: 28.9 cm2 LA Volume: 106 ml LA Volume Index: 57.0 ml/m2 Findings: Left Ventricle: Left ventricle upper limits of normal. No LV hypertrophy. Severely reduced systolic LV function. The ejection fraction is estimated to be 10-15 %. Diastolic dysfunction is present. . Right Ventricle: Normal size right ventricle. Moderately to severely reduced right ventricular function. There is a moderator band noted in the right ventricle. Left Atrium: The left atrium is severely dilated. Atrial septal bowing from right to left. Right Atrium: The right atrium is severely dilated. Mitral Valve: The mitral valve is normal in appearance and function. Mild mitral valve regurgitation is present. Aortic Valve: The aortic valve is normal in appearance and function. The aortic valve is tri-leaflet. Trivial aortic valve regurgitation. Tricuspid Valve: The tricuspid valve is normal in appearance and function. Mild tricuspid regurgitation is present. The pulmonary artery pressure is normal. Pulmonic Valve: The pulmonic valve is normal in appearance and function. Aorta: The aorta is normal. Pericardium: No pericardial effusion. (No Signature Object) Patient: RAHEEL LOCKHART Study Date: 08/19/2018 Page 2 of 2 11:16 AM [id number]
[2018-08-19] MEDS: HYDROCODONE/APAP 5/325 TAB PO PRN ×2 (14:21→22:51)
--- NOTE | 2018-08-19 14:40 | ASMTCMCOM ---
CM Note CM Note Notes: 08/19/2018 Case Management Note Pt admitted for pacemaker placement. Met w/ Suze [phone], Daughter Kendra Orozco [phone] and pt to discuss d/c needs. Pt is current with [facility]. Faxed updates. Pt has limited driving in the last few weeks d/t increasing SOB. and daughter transport as necessary. Awaiting PT eval. Pt declined home health. Case Management d/c poc: Independent with follow up as directed. Case Management available if needs arise. Date Signed: 08/19/2018 02:39 PM Electronically Signed By:oRzina Mcgrath RN
--- NOTE | 2018-08-19 15:52 | HOSPPROG ---
Hospitalist Progress Note Assessment/Plan: Assessment: 63 year old male with pmh of CHF LVEF of 10%, poorly controlled afib , ILD, RA, who presented to the ER with worsening shortness of breath. Today breathing better. acute exacerbation of CHF- LVEF of 10% in past, confirmed by today's echo Case discussed with EP who will perform an AVN ablation on Sunday along with placement of a micropacer. In the interval would continue lasix, aldactone, lopressor. holding eliquis lmwh today Afib with RVR- on lopressor with poor rate control. Rates initially in the 140- 150s. Rates currently better, hovering 90-110's. Amiodarone has been discussed in the past but patient is averse given his underlying ILD. NALINI- creatinine 1.4 on admission likely due to cardiorenal and poor perfusion in setting of hypotension and afib. creatinine improved overight. Use caution with diuresis, and monitor renal function. cr 1.3 today ILD- baseline oxygen use of 3-5 liters. on prednisone 5mg daily. Currently back on baseline oxygen. cont prednisone, and oxygen titrated to 90% JOSH- on CPAP. continue COPD- on 3-5 liters, currently at base. cont oxygen PRN titrated, and PRN nebs. RA- receives rituxan infusions. dispo: inpt Subjective: case d/w dr kiser. echo confirms ef 10-15% Objective: Vital Signs Temp Pulse Resp BP Pulse Ox 36.6 C 120 H 20 102/80 90 L 08/19/18 12:00 08/19/18 12:00 08/19/18 12:00 08/19/18 12:00 08/19/18 12:00 Laboratory Results 08/18/18 06:10 08/18/18 08/19/18 08/20/18 05:59 05:59 05:59 Intake Total 0 1725 Output Total 100 Balance 0 1625 PT 19.7 SEC (12.0-15.0) H 08/17/18 17:15 INR 1.66 (0.83-1.16) H 08/17/18 17:15 - Physical Exam Constitutional: no apparent distress, appears nourished Eyes: PERRL, anicteric sclera Ears, Nose, Mouth, Throat: moist mucous membranes, hearing normal Cardiovascular: irregularly irregular, No JVD, No edema Respiratory: no respiratory distress, no rales or rhonchi Gastrointestinal: normoactive bowel sounds, soft, non-tender abdomen Genitourinary: no bladder fullness, No sebastian in urethra Skin: warm, normal color Musculoskeletal: full muscle strength, no muscle tenderness Neurologic: AAOx3, sensation intact bilaterally Psychiatric: interacting appropriately, not anxious Lymph, Heme, Immunologic: no cervical LAD ICD10 Worksheet Patient Problems: Problems Problem Status Onset Atrial fibrillation with RVR Acute Congestive heart failure Acute Renal insufficiency Acute COPD (chronic obstructive pulmonary disease) Acute Renal failure Acute Shortness of breath Acute
[2018-08-19] MEDS: ZOLPIDEM TARTRATE 5 MG TAB PO PRN (22:51)
[2018-08-20 04:31] LABS: PLATELET COUNT 108 10^3/uL (150-400)
[2018-08-20 04:49] LABS: INR 1.31 (0.83-1.16); PROTIME(PATIENT) 16.5 SEC (12.0-15.0)
[2018-08-20] MEDS ORDERED: BACITRACIN IRRIGATION/NS 50,000 UNITS/1,000 ML BTL IRR ONE (06:00)
[2018-08-20] MEDS ORDERED: ceFAZolin 2 GM/DEXTROSE 100 ML IV ONE (06:00)
[2018-08-20] MEDS: SPIRONOLACTONE 25 MG TAB PO SCH (08:16)
[2018-08-20] MEDS: FUROSEMIDE 40 MG TAB PO SCH ×2 (08:16→15:15)
[2018-08-20] MEDS: METOPROLOL TARTRATE 25 MG TAB PO SCH ×3 (08:17→20:46)
[2018-08-20] MEDS: predniSONE 10 MG TAB PO SCH (08:17)
[2018-08-20] MEDS: NYSTATIN POWDER 15 GM BTL TP SCH (08:21)
--- NOTE | 2018-08-20 09:09 | PDCARPN ---
Cardiology Progress Note Chief Complaint: 1. Atrial fibrillation with uncontrolled ventricular rates 2. Tachycardia-mediated cardiomyopathy Assessment/Plan: Assessment/Plan: 1. Atrial fibrillation with RVR - plan to proceed with AV node ablation + implant of Micra leadless pacemaker today. Will plan for SANDIE and cardioversion immediately prior to Micra implant. Patient is NPO and consents have been co- signed by his . 2. Tachycardia-mediated cardiomyopathy - Echo yesterday demonstrated LVEF 10-15% . 08/20/18 09:10 Subjective: No issues overnight. Reviewed/Discussed With: multidisciplinary team Time Spent with Patient: greater than 25 minutes Time Spent with Patient: Greater than 25 minutes spent on this patients care, greater than 50% of time spent counseling, educating, and coordinating care regarding the above mentioned plan. Objective: Vital Signs (8 Hrs) Temp Pulse Resp BP Pulse Ox 08/20/18 08:17 149 H 100/78 08/20/18 08:00 36.6 C 149 H 20 100/78 86 L 08/20/18 03:45 36.0 C 149 H 20 119/81 H 95 Intake/Output (24 Hrs) 08/19/18 08/20/18 08/21/18 05:59 05:59 05:59 Intake Total 1725 800 Output Total 100 100 Balance 1625 700 Intake: Oral (ml) 1725 800 Output: Urine (ml) 100 100 Toilet 100 100 Other: Weight 72.8 kg Number of Voids Toilet 2 1 Number of Stools Toilet 1 Result Diagrams: 08/20/18 03:30 08/20/18 03:30 Cardiac Labs: Cardiac Lab Results (72 Hrs) 08/18/18 06:10 Troponin I 0.028 Telemetry: A-fib with RVR (150-165bpm) ICD10 Worksheet Patient Problems: Problems Problem Status Onset Atrial fibrillation with RVR Acute Congestive heart failure Acute Renal insufficiency Acute COPD (chronic obstructive pulmonary disease) Acute Renal failure Acute Shortness of breath Acute
[2018-08-20] MEDS ORDERED: MIDAZOLAM 2 MG/2 ML VIAL IVP ONE (10:32)
--- NOTE | 2018-08-20 10:32 | PDANEPAE ---
ANE History of Present Illness here for AV node ablation and micra PM ANE Past Medical History - Cardiovascular History Hx Hypertension: Yes Hx Arrhythmias: Yes Hx Chest Pain: No Hx Coronary Artery / Peripheral Vascular Disease: No Hx CHF / Valvular Disease: Yes Hx Palpitations: No - Pulmonary History Hx COPD: No Hx Asthma/Reactive Airway Disease: No Hx Recent Upper Respiratory Infection: No Hx Oxygen in Use at Home: Yes O2 in Use at Home (L/minute): 3.5 Hx Sleep Apnea: Yes Pulmonary History Comment: chronic rhinitis - Endocrine History Hx Diabetes: No - Renal History Hx Renal Disorders: Yes Renal History Comment: kidney stones - Liver History Hx Hepatic Disorders: No - Neurological & Psychiatric Hx Hx Neurological and Psychiatric Disorders: No - Cancer History Hx Cancer: No - GI History Hx Gastrointestinal Disorders: Yes Gastrointestinal History Comment: Irritable bowel syndrome-D - Other Health History Other Health History: Rheumatoid arthritis - Chronic Pain History Chronic Pain: Yes (RA on Vicodin prn) - Surgical History Prior Surgeries: L elbow, inguinal hernia, cholecystectomy ANE Review of Systems Review of systems is: negative Review of Systems: - Exercise capacity Exercise capacity: <4 METS ANE Patient History - Allergies Allergies/Adverse Reactions: eluxadoline [From Viberzi] Allergy (Verified 08/17/18 16:33) metronidazole [From Flagyl] Allergy (Verified 08/17/18 16:33) - Home Medications Home medications: home medication list seen and reviewed Home Medications: Diazepam [Valium 5 MG (*)] 5 mg PO QID PRN 04/17/18 [Last Taken 06/19/18] Hydrocodone/Acetaminophen [Orchard 5/325 (*)] 0.5 - 1 each PO Q6 PRN 04/17/18 [ Last Taken 06/20/18] Mag/Aluminum/Sod Bicarb/Alginc [Gaviscon 80-14.2 mg Tab Chew] 2 each PO DAILY PRN 04/18/18 [Last Taken 06/20/18] Nystatin Powder [Mycostatin Powder] 1 roshan TP DAILY 06/20/18 [Last Taken 09:30] predniSONE 5 mg PO DAILY 06/20/18 [Last Taken 08/17/18 09:30] Furosemide [Lasix 40 MG (*)] 20 mg PO BID@0900,1500 08/17/18 [Last Taken 09:30] Zolpidem Tartrate [Ambien 5MG (*)] 10 mg PO HS PRN 08/17/18 [Last Taken 08/16/18 ] - Smoking Hx Smoking Status: Never smoked ANE Labs/Vital Signs - Labs Result Diagrams: 08/20/18 03:30 08/20/18 03:30 - Vital Signs Vital Signs: reviewed preoperatively; see RN documention for details Blood Pressure: 100/78 Heart Rate: 149 Respiratory Rate: 20 O2 Sat (%): 86 Height: 175.26 cm Weight: 72.8 kg ANE Physical Exam - Airway Neck exam: FROM Mallampati Score: Class 1 - Pulmonary Pulmonary: no respiratory distress - Cardiovascular Cardiovascular: regular rate and rhythym - ASA Status ASA Status: IV ANE Anesthesia Plan Anesthesia Plan: general endotracheal anesthesia Lines/Monitors: arterial line
[2018-08-20] MEDS ORDERED: fentaNYL 100 MCG/2 ML INJ IVP ONE (10:33)
[2018-08-20] MEDS ORDERED: LIDOCAINE 1% 300 MG/30 ML SDV ONE (10:34)
[2018-08-20] MEDS ORDERED: IOPAMIDOL (ISOVUE-300) 100 ML BTL ONE ×2 (10:35→12:40)
[2018-08-20] MEDS ORDERED: HEPARIN 10,000 UNIT/10 ML MDV (1,000 UNIT/ML) ONE (10:35)
[2018-08-20] MEDS ORDERED: BUPIVACAINE 0.75% 10 ML SDV ONE (10:35)
[2018-08-20] MEDS ORDERED: AMIODARONE A.FIB-6HR INFSN (ORDER 2/3) PREMIX IV ONE (11:00)
[2018-08-20] MEDS ORDERED: AMIODARONE A.FIB-18HR INFSN (ORDER 3/3) IV ONE (11:00)
[2018-08-20] MEDS ORDERED: AMIODARONE A.FIB-LOAD DOSE(ORDER 1/3) PREMIX IV ONE (11:00)
[2018-08-20] MEDS ORDERED: PROPOFOL/EMULSION 500 MG/50 ML BOTTLE IV ONE (11:06)
[2018-08-20] MEDS ORDERED: MIDAZOLAM 2 MG/2 ML VIAL ONE (11:22)
--- NOTE | 2018-08-20 12:26 | CPEKG ---
Test Reason : OPEN Blood Pressure : / mmHG Vent. Rate : 156 BPM Atrial Rate : 160 BPM P-R Int : 000 ms QRS Dur : 131 ms QT Int : 335 ms P-R-T Axes : 000 149 -36 degrees QTc Int : 540 ms Wide-QRS tachycardia irregular Nonspecific intraventricular conduction delay Diffuse st t wave changes Confirmed by Mitchell Bear ([id number]) on 08/20/2018 12:26:39 PM Referred By: Confirmed By:Mitchell Bear
[2018-08-20] MEDS ORDERED: SUGAMMADEX SODIUM 200 MG/2 ML VIAL IVP ONE (13:06)
--- NOTE | 2018-08-20 14:36 | EPPROC ---
Electrophysiology Procedure Note: IMPLANTATION OF MEDTRONIC MICRA LEADLESS PACEMAKER Patient was brought to the EP lab in fasting nonsedated state. Anesthesiologist Dr. Barrett Ledesma administered anesthesia. AV node ablation was done first, please refer to this note. 4Fr arterial line was placed Right femoral vein was accessed using modified Seldinger technique under ultrasound guidance. A [id number] stitch was placed around the wire. 1 cm incision was made at the entry site and dilated appropriately. 8 Filipino sheath was placed in the right femoral vein. Venogram was done to confirm appropriate size of vein for large sheath and to rule out anatomic aberrations. All sheath and catheter manipulations were performed under biplane fluoroscopy. Heparin 5000 units was administered intravenously. Moreover heparinized saline was infused through the side port of the Micra sheath at 150 mL/hour. 0.035 in J guidewire was advanced to the superior vena cava. Over this a 5 Filipino straight glide catheter was advanced into the superior vena cava. J guidewire was exchanged for a [employer] [facility] stiff guidewire. Tract was pre-dilated with 14 and 20 Fr dilators. Micra 27 Fr sheath was flushed and advanced to the mid right atrium under fluoroscopy and the guidewire and dilator were removed. Micra delivery system was flushed according to instructions and advanced into the Micra sheath. Micra sheath was pulled back into the inferior vena cava. Micra delivery system was advanced through the tricuspid valve into the right ventricle. Appropriate location for pacemaker placement was identified. Right ventriculogram was performed in two views. Delivery system was advanced further , device was deployed. Multiple cine - angiography views were obtained during tug test to confirm that 3 of 4 tines were appropriately deployed. Device parameters were checked and found to be excellent. Device parameters were re-checked after 5 min and since they were stable, the retaining suture was cut and gently pulled out. Device remained in stable location after suture was removed. Device parameters remained unchanged with expected slight increase in impedance. 27 Filipino sheath was removed and figure of 8 suture was applied around the femoral access site. Manual pressure was also applied. Device Medtronic Micra VR TCP SN [id number] Placement RV Septum R wave (paced via temp wire) 8.4 mV Impedance 1070 ohm Threshold 0.5 V 0.24 ms Settings VVI 100 bpm, 5 V @ 0.24 ms Patient remained in critical condition post AV node ablation and Micra placement. ABG pH improved from 7.18 to 7.26 post ablation. All femoral lines were removed. L Radial arterial line was placed by anesthesiologist. He was transferred to ICU in critical but stable condition. Patient Problems: Problems Problem Status Onset Atrial fibrillation with RVR Acute Congestive heart failure Acute Renal insufficiency Acute COPD (chronic obstructive pulmonary disease) Acute Renal failure Acute Shortness of breath Acute
--- NOTE | 2018-08-20 14:36 | EPPROC ---
Electrophysiology Procedure Note: CATHETER MEDIATED ABLATION OF THE AV JUNCTION Procedures performed: [id number] AV node ablation Fluoroscopy INDICATION: Atrial fibrillation, tachycardia mediated cardiomyopathy Pt refused amiodarone due to lung disease Decision between place patient in hospice vs. consider AV node ablation Catheters & Anesthesia: The patient arrived in the Electrophysiology Laboratory in the fasting state. Dr. Barrett Ledesma administered general anesthesia. The right groin and left groin area were prepped and draped in the usual sterile manner. Appropriate non- invasive blood pressure, pulse oximetry and end-tidal CO2 monitoring was established. L femoral arterial line and R+L femoral venous lines placed. All catheters were placed percutaneously using the modified Seldinger technique and advanced into position under fluoroscopic guidance). At baseline the patient was noted to be in AFIB with a mean ventricular rate of 170 bpm. A #7 Andorran deflectable quadrapolar electrode catheter (2mm-5mm-2mm spacing) with 8 mm tip electrode was advanced to the right atrium. A total of 4 RF applications were delivered. RF#1 was applied in the area of the compact AV node. RF#2 was applied to the same area as RF#1. RF#3 was applied to the area of the fast AV donald pathway. RF#4 was applied to the right midseptal tricuspid annulus. There was complete AV block after RF1 Cessation of pacing revealed that there was junctional escape rhythm at a rate of 35bpm. Patient was left on table for Micra pacemaker placement. Octapolar catheter was left in place for V pacing. CONCLUSIONS: 1. Atrial fibrillation with rapid ventricular response. 2. Successful ablation of the AV junction producing complete AV block. 3. Junctional escape rhythm at a rate of 35 bpm. 4. No complications. Patient Problems: Problems Problem Status Onset COPD (chronic obstructive pulmonary disease) Acute Congestive heart failure Acute Renal failure Acute Atrial fibrillation with RVR Acute Shortness of breath Acute Renal insufficiency Acute
[2018-08-20] MEDS: DEXMEDETOMIDINE HCL 400 MCG in NS 100 ML IV SCH ×2 (15:20→20:04)
--- NOTE | 2018-08-20 15:24 | PDGENHP ---
History and Physical - Chief Complaint Rapid heart rate, SOB - History of Present Illness Alphonse is a very pleasant 63-year-old male with severe systolic heart failure, EF 10%, longstanding uncontrolled atrial fibrillation rheumatoid arthritis and associated interstitial lung disease who was admitted from the emergency department with shortness of breath and atrial fibrillation with RVR. Patient has failed multiple interventions and has also declined various other interventions. See cardiology clinic notes for more details. Patient has significant psychiatric history from was determined not to be an ideal candidate for a BiV AICD. After a long risk benefit discussion, patient and family decided to proceed with a micra leadless pacemaker and AVN ablation. Procedure went well however was complicated by persistent hypotension hypoxemia. At time of interview patient is obtunded and unable to provide meaningful history. Bilateral femoral arterial access was used during the procedure. Patient was extubated in the EP lab however required bag-valve mask ventilation to maintain saturations. History Information - Allergies/Home Medication List Allergies/Adverse Reactions: eluxadoline [From Viberzi] Allergy (Verified 08/17/18 16:33) metronidazole [From Flagyl] Allergy (Verified 08/17/18 16:33) Home Medications: Diazepam [Valium 5 MG (*)] 5 mg PO QID PRN 04/17/18 [Last Taken 06/19/18] Hydrocodone/Acetaminophen [[place] 5/325 (*)] 0.5 - 1 each PO Q6 PRN 04/17/18 [ Last Taken 06/20/18] Mag/Aluminum/Sod Bicarb/Alginc [Gaviscon 80-14.2 mg Tab Chew] 2 each PO DAILY PRN 04/18/18 [Last Taken 06/20/18] Nystatin Powder [Mycostatin Powder] 1 roshan TP DAILY 06/20/18 [Last Taken 09:30] predniSONE 5 mg PO DAILY 06/20/18 [Last Taken 08/17/18 09:30] Furosemide [Lasix 40 MG (*)] 20 mg PO BID@0900,1500 08/17/18 [Last Taken 09:30] Zolpidem Tartrate [Ambien 5MG (*)] 10 mg PO HS PRN 08/17/18 [Last Taken 08/16/18 ] I have personally reviewed and updated: family history, medical history, social history, surgical history - Past Medical History atrial fibrillation, hypertension Additional medical history: Rheumatoid arthritis. Immunosuppression, on Rituxan. Anxiety. Zaragoza's esophagus. GERD. PFO. 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-low Review of Systems Review of Systems: A comprehensive review of systems was not able to be obtained secondary to patient's obtunded mental status Physical Exam Physical Exam: Temp Pulse Resp BP Pulse Ox 36.6 C 100 15 96/70 L 94 08/20/18 10:32 08/20/18 14:39 08/20/18 14:39 08/20/18 14:39 08/20/18 14:39 O2 (L/minute) 8 FIO2 (%) 100 Constitutional: other (Up tended, dyspneic) Eyes: PERRL, anicteric sclera Ears, Nose, Mouth, Throat: moist mucous membranes, other (Nasal cannula to be in place) Cardiovascular: regular rate and rhythym, no murmur, rub, or gallop, JVD Respiratory: inspiratory crackles, respiratory distress Gastrointestinal: normoactive bowel sounds, soft, non-tender abdomen Skin: mottled, no rashes or abrasions Neurologic: other (Obtunded, minimally resolves to pain.) Psychiatric: encephalopathic Lab Data & Imaging Review 08/20/18 03:30 08/20/18 03:30 WBC 8.48 10^3/uL (3.80-9.50) 08/20/18 03:30 RBC 5.35 10^6/uL (4.40-6.38) 08/20/18 03:30 Hgb 17.7 g/dL (13.7-17.5) H 08/20/18 03:30 Hct 56.2 % (40.0-51.0) H 08/20/18 03:30 MCV 105.0 fL (81.5-99.8) H 08/20/18 03:30 MCH 33.1 pg (27.9-34.1) 08/20/18 03:30 MCHC 31.5 g/dL (32.4-36.7) L 08/20/18 03:30 RDW 15.4 % (11.5-15.2) H 08/20/18 03:30 Plt Count 108 10^3/uL (150-400) L 08/20/18 03:30 MPV 11.6 fL (8.7-11.7) 08/20/18 03:30 Neut % (Auto) 56.3 % (39.3-74.2) 08/20/18 03:30 Lymph % (Auto) 27.1 % (15.0-45.0) 08/20/18 03:30 Garza % (Auto) 9.2 % (4.5-13.0) 08/20/18 03:30 Eos % (Auto) 3.1 % (0.6-7.6) 08/20/18 03:30 Baso % (Auto) 1.8 % (0.3-1.7) H 08/20/18 03:30 Nucleat RBC Rel Count 0.0 % (0.0-0.2) 08/20/18 03:30 Absolute Neuts (auto) 4.78 10^3/uL (1.70-6.50) 08/20/18 03:30 Absolute Lymphs (auto) 2.30 10^3/uL (1.00-3.00) 08/20/18 03:30 Absolute Monos (auto) 0.78 10^3/uL (0.30-0.80) 08/20/18 03:30 Absolute Eos (auto) 0.26 10^3/uL (0.03-0.40) 08/20/18 03:30 Absolute Basos (auto) 0.15 10^3/uL (0.02-0.10) H 08/20/18 03:30 Absolute Nucleated RBC 0.00 10^3/uL (0-0.01) 08/20/18 03:30 Immature Gran % 2.5 % (0.0-1.1) H 08/20/18 03:30 Immature Gran # 0.21 10^3/uL (0.00-0.10) H 08/20/18 03:30 PT 16.5 SEC (12.0-15.0) H 08/20/18 03:30 INR 1.31 (0.83-1.16) H 08/20/18 03:30 APTT 42.0 SEC (23.0-38.0) H 08/20/18 03:30 POC Blood Source ARTERIAL 08/20/18 14:35 Puncture Site NONE GIVEN 08/20/18 13:46 Patient Temperature 35.0 DEGREES 08/20/18 14:35 pCO2 49 mmHg (34-38) H 08/20/18 13:46 pO2 62 mmHg (65-75) L 08/20/18 13:46 Total CO2 22 mEq/L (23-27) L 08/20/18 13:46 POC ABG pH 7.39 (7.35-7.45) 08/20/18 14:35 ABG pH 7.26 (7.35-7.45) L 08/20/18 13:46 POC ABG pCO2 36 mmHg (34-38) 08/20/18 14:35 POC ABG pO2 64 mmHg (65-75) L 08/20/18 14:35 POC ABG HCO3 22 mEq/L (22-26) 08/20/18 14:35 ABG HCO3 20 mEq/L (22-26) L 08/20/18 13:46 POC ABG Total CO2 23 mEq/L (23-27) 08/20/18 14:35 POC ABG O2 Sat 94 % (92-95) 08/20/18 14:35 ABG O2 Saturation 83 % (92-95) L 08/20/18 13:46 POC ABG Base Excess -3.0 mEq/L (-2.5-2.5) L 08/20/18 14:35 ABG Base Excess -7.6 mEq/L (-2.5-2.5) L 08/20/18 13:46 Total O2 Concentration 2.0 LITERS 08/20/18 12:45 O2 Concentration % 100 % (0-100) 08/20/18 12:45 Respiration Rate 12 08/20/18 12:45 Set Respiration Rate 12 08/20/18 12:04 Assist Control YES 08/20/18 12:45 POC FiO2 100.0000 % (0-100) 08/20/18 14:35 Tidal Volume 620 08/20/18 12:45 End Tidal CO2 26 08/20/18 12:45 PEEP 5 08/20/18 12:45 Sodium 138 mEq/L (135-145) 08/20/18 03:30 Potassium 4.1 mEq/L (3.3-5.0) 08/20/18 03:30 Chloride 100 mEq/L (97-110) 08/20/18 03:30 Carbon Dioxide 29 mEq/l (22-31) 08/20/18 03:30 Anion Gap 9 mEq/L (6-14) 08/20/18 03:30 BUN 34 mg/dL (7-23) H 08/20/18 03:30 Creatinine 1.4 mg/dL (0.7-1.3) H 08/20/18 03:30 Estimated GFR 51 08/20/18 03:30 Glucose 97 mg/dL (70-100) 08/20/18 03:30 POC Lactic Acid Arter 4.5 mmol/L (0.5-1.6) H 08/20/18 14:35 Calcium 8.9 mg/dL (8.5-10.4) 08/20/18 03:30 Magnesium 2.1 mg/dL (1.6-2.3) 08/20/18 03:30 Total Bilirubin 2.1 mg/dL (0.1-1.4) H 08/20/18 03:30 Conjugated Bilirubin 1.1 mg/dL (0.0-0.5) H 08/20/18 03:30 Unconjugated Bilirubin 1.0 mg/dL (0.0-1.1) 08/20/18 03:30 AST 37 IU/L (17-59) 08/20/18 03:30 ALT 66 IU/L (21-72) 08/20/18 03:30 Alkaline Phosphatase 144 IU/L (38-126) H 08/20/18 03:30 POC Troponin I 0.02 ng/mL (0.00-0.08) 08/17/18 17:21 Troponin I 0.028 ng/mL (0.000-0.034) 08/18/18 06:10 NT-Pro-B Natriuret Pep 45188 pg/mL (0-125) H 08/18/18 06:10 Total Protein 6.1 g/dL (6.3-8.2) L 08/20/18 03:30 Albumin 3.5 g/dL (3.5-5.0) 08/20/18 03:30 Patient ABO/Rh O POSITIVE 08/20/18 03:30 Antibody Screen NEGATIVE 08/20/18 03:30 Chest X-Ray results: other (I reviewed interpreted patient's images. I reviewed a recent chest x-ray that showed peripheral predominant interstitial markings consistent with fibrosis. As well as a CT chest from 2012 when previously followed by Dr Spivey with with paraseptal emphysema and bibasilar fibrosis) Visualized and Interpreted imaging results: Yes Assessment & Plan Assessment: ASSESSMENT 63-year-old male with severe congestive heart failure (EF 10%) and refractory atrial fibrillation with RVR status post micra leadless pacer and AV donald ablation with postop course complicated by acute on chronic hypoxemic respiratory failure and attended mental status. # acute on chronic hypoxemic respiratory failure requiring bag-valve mask bagging and high-flow nasal cannula # severe congestive heart failure (EF 10%) # interstitial lung disease # rheumatoid arthritis on Rituxan as an outpatient # prior smoking history # mood disorder # encephalopathy, metabolic and toxic # anemia PLAN # continue HFNC # repeat ABG to deterime need for reintubation # diureis to help with hypervolemia and hypoxemia # precedex drip to help sedate patient without depressing respiratory status in order to facilitate patient safely lying flat for 6 hours post procedure # Needs OP pulmonary follow up for RA related ILD vs combined COPD pulmonary fibrosis # Feeding - NPO # Analgesia APAP, fentanyl # Sedation precedex gtt # Thromboprophylaxis - SCDs, hep per cardiology # Head of bed elevated # Ulcer prophylaxis - H2 jonatan # Glucose SSI # Skin no skin breakdown # Delirium - delirium precautions Patient is critical ill due to life threatening organ dysfunction and is at high risk for decompensation and . Time was spent in EP lab aiding with respiratory status and BMV ventilation, at bedside titrating HFNC and discussions with specialists Total critical care time, excluding procedures: 95 min EVENTS 08/20/18 Micra leadless pacer placement, AV donald ablation, intubation
[2018-08-20] MEDS: HYDROCODONE/APAP 5/325 TAB PO PRN (15:58)
--- NOTE | 2018-08-20 16:51 | ECHO ---
[email or web address] [place] [id number] Main: [phone] Fax: Transthoracic Echocardiogram Name: RAHEEL LOCKHART MR#: [id number] Study Date: 08/20/2018 Study Time: 02:45 PM Date of : 1955 Age: 63 year(s) Height: 175.3 cm (69 in.) Weight: 79.38 kg (175 lb.) BSA: 1.95 m2 Gender: Male Examination: Limited Echo Indication: Post EP, Micra Image Quality: Contrast: Requested by: Fish Morse BP: 96 mmHg/78 mmHg Heart Rate: Rhythm: Indication: Post EP, Micra Procedure Staff Annual Greenhouse Manager: Haresh Chilel RDCS Reading Physician: Manjeet Gilliland MD Requesting Provider: Measurements: Chambers Valvular Assessment AV/MV Valvular Assessment TV/PV Normal Normal Normal Name Value Range Name Value Range Name Value Range IVSd (2D): 0.8 cm (0.6 cm-1.1 cm) LVDd (2D): 6.2 cm (4.2 cm-5.9 cm) LVDs (2D): 5.5 cm (2.1 cm-4 cm) LVPWd (2D): 1.0 cm (0.6 cm-1 cm) LVEF (MOD4): 17 % (>=55 %) Continued Measurements: Findings: Exam Comments: This is a limited echo post EP/Micra. The EF is estimated at 15-20% with a HR of 100bpm. There is a micra transcatheter pacing system in the right ventricle.. (No Signature Object) Patient: RAHEEL LOCKHART Study Date: 08/20/2018 Page 1 of 1 02:45 PM [id number]
--- NOTE | 2018-08-20 16:56 | HOSPPROG ---
Hospitalist Progress Note Assessment/Plan: Assessment: 63 year old male with pmh of CHF LVEF of 10%, poorly controlled afib , ILD, RA, who presented to the ER with worsening shortness of breath. Today breathing better. AHRF: post pacer has ILD continue high flow 02 prob pulm edema agitation: precedex acute exacerbation of CHF- LVEF of 10% in past, confirmed by today's echo Case discussed with EP who will perform an AVN ablation on Sunday along with placement of a micropacer. In the interval would continue lasix, aldactone, lopressor. holding eliquis lmwh today Afib with RVR- on lopressor with poor rate control. Rates initially in the 140- 150s. Rates currently better, hovering 90-110's. Amiodarone has been discussed in the past but patient is averse given his underlying ILD. NALINI- creatinine 1.4 on admission likely due to cardiorenal and poor perfusion in setting of hypotension and afib. creatinine improved overight. Use caution with diuresis, and monitor renal function. cr 1.3 today ILD- baseline oxygen use of 3-5 liters. on prednisone 5mg daily. Currently back on baseline oxygen. cont prednisone, and oxygen titrated to 90% JOSH- on CPAP. continue COPD- on 3-5 liters, currently at base. cont oxygen PRN titrated, and PRN nebs. RA- receives rituxan infusions. dispo: inpt Subjective: case d/w raisa wiseman and rashel. s/p micra pacer today Objective: Vital Signs Temp Pulse Resp BP Pulse Ox 35.5 C L 100 13 100/78 90 L 08/20/18 15:47 08/20/18 15:47 08/20/18 15:47 08/20/18 15:47 08/20/18 15:47 Laboratory Results 08/20/18 03:30 08/20/18 03:30 08/19/18 08/20/18 08/21/18 05:59 05:59 05:59 Intake Total 1725 800 Output Total 100 100 Balance 1625 700 PT 16.5 SEC (12.0-15.0) H 08/20/18 03:30 INR 1.31 (0.83-1.16) H 08/20/18 03:30 - Physical Exam Constitutional: no apparent distress, appears nourished, other (lying flat. sedated) Eyes: PERRL Ears, Nose, Mouth, Throat: moist mucous membranes, hearing normal Cardiovascular: regular rate and rhythym, tachycardia Respiratory: no respiratory distress Gastrointestinal: normoactive bowel sounds, soft, non-tender abdomen Genitourinary: no bladder fullness, No sebastian in urethra Skin: warm, normal color Musculoskeletal: full muscle strength Neurologic: AAOx3 ICD10 Worksheet Patient Problems: Problems Problem Status Onset Atrial fibrillation with RVR Acute Congestive heart failure Acute Renal insufficiency Acute COPD (chronic obstructive pulmonary disease) Acute Renal failure Acute Shortness of breath Acute
[2018-08-20] MEDS ORDERED: FUROSEMIDE 40 MG/4 ML VIAL IVP ONE (17:30)
[2018-08-20] MEDS ORDERED: LORazepam 2 MG/ML INJ ONE (21:25)
[2018-08-20] MEDS: LORazepam 2 MG/ML INJ IV PRN (21:28)
[2018-08-21] MEDS: DEXMEDETOMIDINE HCL 400 MCG in NS 100 ML IV SCH ×2 (00:58→05:02)
[2018-08-21] MEDS: LORazepam 2 MG/ML INJ IV PRN (03:55)
[2018-08-21] MEDS ORDERED: NS 500 ML IV ONE (05:30)
[2018-08-21] MEDS ORDERED: NS 500 ML IV PRN (07:50)
--- NOTE | 2018-08-21 08:36 | PDINTPN ---
Briquetting Machine Operator Progress Note Assessment/Plan: ASSESSMENT 63-year-old male with severe congestive heart failure (EF 10%) and refractory atrial fibrillation with RVR status post micra leadless pacer and AV donald ablation 08/20/18 with postop course complicated by acute on chronic hypoxemic respiratory failure and encephalopathy. # acute on chronic hypoxemic respiratory failure requiring bag-valve mask bagging and high-flow nasal cannula # severe congestive heart failure (EF 10%) # interstitial lung disease # rheumatoid arthritis on Rituxan as an outpatient # prior smoking history # mood disorder # encephalopathy, metabolic and toxic # anemia PLAN # continue HFNC, abg on max setting with marginal paO2 # diureis to help with hypervolemia and hypoxemia # restarting elaquis per Dr Choi # low dose coreg # prn low dose haldol # Needs OP pulmonary follow up for RA related ILD vs combined COPD pulmonary fibrosis # Feeding - NPO # Analgesia APAP, fentanyl # Sedation none # Thromboprophylaxis - SCDs, elaquis # Head of bed elevated # Ulcer prophylaxis # Glucose SSI # Skin no skin breakdown # Delirium - delirium precautions Imaging Personally reviewed interpreted radiographic imaging as well as formal radiology reads 08/21/2018 chest x-ray with on 1 parenchymal abnormalities consistent with ILD with a superimposed component of pulmonary edema Subjective: Negative 1100 yesterday with lasix, requires precedex and NIPPV for respiratory failure and agitation. Groin access site bled post op requiring bedside compression, patient denies worsening shortness of breath or chest pain or headaches or leg swelling Objective: Vital Signs Temp Pulse Resp BP Pulse Ox 36.9 C 100 18 100/80 98 08/21/18 06:00 08/21/18 06:00 08/21/18 06:00 08/21/18 06:00 08/21/18 06:00 Laboratory Results 08/20/18 03:30 08/20/18 03:30 08/20/18 08/21/18 08/22/18 05:59 05:59 05:59 Intake Total 800 798.0 Output Total 100 1935 Balance 700 -1137.0 PT 16.5 SEC (12.0-15.0) H 08/20/18 03:30 INR 1.31 (0.83-1.16) H 08/20/18 03:30 Physical Exam - Physical Exam General Appearance: mild distress EENT: other (High-flow nasal cannula to be in place, mildly dry mucous membranes ) Neck: non-tender, full range of motion Respiratory: chest non-tender, respiratory distress, rales Cardiac/Chest: other (Decreased peripheral pulses, regular rhythm no S3 appreciated) Abdomen: non-tender, soft Skin: normal color, warm/dry Extremities: normal range of motion, non-tender Neuro/Psych: other (Odd affect, alert oriented x3) ICD10 Worksheet Patient Problems: Problems Problem Status Onset Atrial fibrillation with RVR Acute Congestive heart failure Acute Renal insufficiency Acute COPD (chronic obstructive pulmonary disease) Acute Renal failure Acute Shortness of breath Acute
--- NOTE | 2018-08-21 09:21 | ECHO ---
[email or web address] [address] [address] Main: [phone] Fax: Transthoracic Echocardiogram Name: RAHEEL LOCKHART MR#: [id number] Study Date: 08/21/2018 Study Time: 08:00 AM Date of : 1955 Age: 63 year(s) Height: 175.3 cm (69 in.) Weight: 72.58 kg (160 lb.) BSA: 1.88 m2 Gender: Male Examination: Echo Indication: Post AVJ ablation Image Quality: Good Contrast: Requested by: Misha Choi BP: 95 mmHg/74 mmHg Heart Rate: Rhythm: Indication: Post AVJ ablation Procedure Staff Can Inspector: Irish Rutledge RDCS Reading Physician: Misha Choi MD Requesting Provider: Conclusions: Severely reduced systolic LV function. The ejection fraction is estimated to be 15 %. Diastolic dysfunction is present. . Moderately to severely reduced right ventricular function. MICRA pacemaker noted in RV Measurements: Chambers Valvular Assessment AV/MV Valvular Assessment TV/PV Normal Normal Normal Name Value Range Name Value Range Name Value Range Ao Dulce (MM): 4.0 cm (2.2 cm-3.7 AV Vmax: 0.82 m/s (1 m/s-1.7 TR Vmax: 2.32 mm/s ( - ) cm) m/s) TR PGmax: 22 mmHg ( - ) IVSd (2D): 0.9 cm (0.6 cm-1.1 AV meanP mmHg ( - ) syst. PAP: 27 mmHg ( - ) cm) MV E Vmax: 0.50 m/s ( - ) LVDd (2D): 5.4 cm (4.2 cm-5.9 MV A Vmax: 0.21 m/s ( - ) cm) MV E/A: 2.38 ( - ) LVDs (2D): 5.0 cm (2.1 cm-4 cm) LVPWd (2D): 1.0 cm (0.6 cm-1 cm) LVEF (BP): 12 % (>=55 %) EF Range: 15 % Continued Measurements: Chambers Valvular Assessment AV/MV Valvular Assessment TV/PV Name Value Name Value Name Value LADs: 4.9 cm MV E' Septal: 0.04 m/s CVP (est.): 5 mmHg LADs Lon.6 cm MV E/E' Septal: 14.20 LA Area: 30.6 cm2 MV E/E' Lateral: 3.10 Patient: RAHEEL LOCKHART Study Date: 08/21/2018 Page 1 of 2 08:00 AM LA Volume: 110 ml LA Volume Index: 58.5 ml/m2 Findings: Left Ventricle: Left ventricle upper limits of normal. No LV hypertrophy. Severely reduced systolic LV function. The ejection fraction is estimated to be 15 %. Diastolic dysfunction is present. . Right Ventricle: Normal size right ventricle. Moderately to severely reduced right ventricular function. There is a pacemaker lead noted in the right ventricle. There is a moderator band noted in the right ventricle. Left Atrium: The left atrium is severely dilated. Right Atrium: The right atrium is severely dilated. Mitral Valve: The mitral valve is normal in appearance and function. Mild mitral valve regurgitation is present. Aortic Valve: The aortic valve is normal in appearance and function. Trivial aortic valve regurgitation. Tricuspid Valve: The tricuspid valve is normal in appearance and function. Mild tricuspid regurgitation is present. The pulmonary artery pressure is normal. RVSP is 27mmHG.. Pulmonic Valve: The pulmonic valve is normal in appearance and function. Aorta: The aorta is normal. Pericardium: No pericardial effusion. (No Signature Object) Patient: RAHEEL LOCKHART Study Date: 08/21/2018 Page 2 of 2 08:00 AM [id number]
[2018-08-21] MEDS ORDERED: FUROSEMIDE 40 MG/4 ML VIAL IVP ONE (09:24)
[2018-08-21 09:33] LABS: PLATELET COUNT 89 10^3/uL (150-400)
--- NOTE | 2018-08-21 09:50 | PDCARPN ---
Cardiology Progress Note Chief Complaint: s/p AV node ablation and Micra leadless PPM implant Assessment/Plan: Assessment/Plan: 1. Atrial fibrillation with RVR - s/p AV node ablation and implant of Micra leadless PPM yesterday 08/20. Rates set to 100ppm x1 week, at which point we will lower his rates to 80ppm. Re-start Eliquis this morning. Right groin purse string suture removed, +ecchymosis, no evidence of hematoma, oozing, or infection 2. Tachycardia-mediated cardiomyopathy - Echo this morning demonstrated LVEF 15% . Start Coreg 3.125mg BID. Will plan to start Lisinopril in 2-3 days and plan to up-titrate Coreg over the next several weeks. 3. Acute on chronic congestive heart failure - diuresing well 4. Interstitial lung disease: stable, was on BiPAP this morning 08/21/18 13:12 Subjective: Mr. Orozco is somewhat obtunded this morning second to precedex. According to his , there were no major issues overnight aside from 1 episode of bleeding from his right groin access site after a coughing episode Reviewed/Discussed With: multidisciplinary team Time Spent with Patient: greater than 25 minutes Time Spent with Patient: Greater than 25 minutes spent on this patients care, greater than 50% of time spent counseling, educating, and coordinating care regarding the above mentioned plan. Objective: Vital Signs (8 Hrs) Temp Pulse Resp BP Pulse Ox 08/21/18 06:00 36.9 C 100 18 100/80 98 08/21/18 05:12 37.2 C 100 19 105/79 99 08/21/18 04:59 78/64 L 08/21/18 04:57 94/75 L 08/21/18 04:20 100 21 H 100 08/21/18 04:00 37.2 C 100 17 94/63 L 98 08/21/18 02:00 37.3 C 100 19 103/73 92 Intake/Output (24 Hrs) 08/20/18 08/21/18 08/22/18 05:59 05:59 05:59 Intake Total 800 798.0 Output Total 100 1935 Balance 700 -1137.0 Intake: Oral (ml) 800 IV Infused (ml) 798.0 Dexmedetomidine HCl 400 298.0 mcg In Ns 100 ml @ Per Protocol IV CONT NARESH Rx#: [id number] Ns 500 ml @ Wide Open IV 500 BOLUS ONE Rx#:[id number] Output: Urine (ml) 100 1935 Catheter 193 Toilet 100 Other: Weight 72.8 kg 72.8 kg Output Comment Catheter straight cath Number of Voids Toilet 1 Bladder Scan Volume (ml) Toilet 500 Result Diagrams: 08/21/18 09:05 08/21/18 09:05 EKG: V-paced at 100ppm Telemetry: V-paced rhythm at 100ppm Echocardiogram: LVEF 15% - Physical Exam Constitutional: no apparent distress (obtunded), other (i) Ears, Nose, Mouth, Throat: no oral ulcers, no thrush, dry mucous membranes Cardiovascular: regular rate and rhythm, pulses symmetric bilat Peripheral Pulses: 2+: dorsalis-pedis (R), dorsalis-pedis (L) Respiratory: other (on BiPAP this morning) Gastrointestinal: normoactive bowel sounds, no tenderness, no masses Psychiatric: cooperative, following commands ICD10 Worksheet Patient Problems: Problems Problem Status Onset Atrial fibrillation with RVR Acute Congestive heart failure Acute Renal insufficiency Acute COPD (chronic obstructive pulmonary disease) Acute Renal failure Acute Shortness of breath Acute
[2018-08-21] MEDS: SPIRONOLACTONE 25 MG TAB PO SCH (10:41)
[2018-08-21] MEDS: APIXABAN 5 MG TAB PO SCH ×2 (10:41→20:12)
[2018-08-21] MEDS: predniSONE 10 MG TAB PO SCH (10:42)
[2018-08-21] MEDS: FUROSEMIDE 40 MG TAB PO SCH ×2 (10:43→15:40)
[2018-08-21] MEDS: NYSTATIN POWDER 15 GM BTL TP SCH (10:43)
[2018-08-21] MEDS: METOPROLOL TARTRATE 25 MG TAB PO SCH (10:45)
[2018-08-21] MEDS ORDERED: FUROSEMIDE 20 MG/2 ML VIAL IV ONE (11:15)
--- NOTE | 2018-08-21 11:21 | POSTANESTH ---
Post Anesthetic Evaluation Cardiovascular Status: Similar to Pre-Op Cond Respiratory Status: Requires Airway Assist Level of Consciousness/Mental Status: Can Participate in Eval Pain Control: Adequate, Prn Tx Ordered Nausea/Vomiting Control: Adequate, Prn Tx Ordered Complications Possibly Related to Anesthesia: None Noted
[2018-08-21] MEDS: CARVEDILOL 3.125 MG TAB PO SCH ×2 (12:36→20:12)
--- NOTE | 2018-08-21 14:40 | ASMTCMCOM ---
CM Note CM Note Notes: Patient had procedures yesterday and will be followed by OT/PT today. CM will follow. Date Signed: 08/21/2018 02:39 PM Electronically Signed By:Katelyn Allred LCSW
--- NOTE | 2018-08-21 16:29 | HOSPPROG ---
Hospitalist Progress Note Assessment/Plan: Assessment: 63 year old male with pmh of CHF LVEF of 10%, poorly controlled afib , ILD, RA, who presented to the ER with worsening shortness of breath. #AHRF -Cont with Diuresis -Needs BiPAP at night #CHF Exacerbation, systolic -TTE with EF of 15 % on 08/21/18 -cont diuresis -On Coreg -Monitor BP closely, likely does not have room for MARLEY-I at this time #Afib with RVR -s/p Micro lead PPM and AV Node Ablation -restart Eliquis -Carvedilol per above #Agitation with Encephalopathy -improving -Off Precedex this morning #RA and Chronic Steroid use -close monitoring. Low threshold to give stress steroid dose. - receives rituxan infusions. #ILD and COPD -would avoid Amiodarone -cont Prednisone per above -baseline O2 is 3-5 Liters #JOSH: CPAP #NALINI- creatinine 1.4 on admission likely due to cardiorenal and poor perfusion in setting of hypotension and afib. creatinine improved overight. Use caution with diuresis, and monitor renal function. cr 1.3 today #Hypotension, soft BP: monitor -per above #Thrombocytosis: -Platelets 89 today, repeat in a.m. Subjective: less agitated. no cp. soft bp Objective: Vital Signs Temp Pulse Resp BP Pulse Ox 36.9 C 100 18 89/63 L 98 08/21/18 06:00 08/21/18 12:36 08/21/18 06:00 08/21/18 12:36 08/21/18 06:00 Laboratory Results 08/21/18 09:05 08/21/18 09:05 08/20/18 08/21/18 08/22/18 05:59 05:59 05:59 Intake Total 800 798.0 Output Total 100 1935 Balance 700 -1137.0 PT 16.5 SEC (12.0-15.0) H 08/20/18 03:30 INR 1.31 (0.83-1.16) H 08/20/18 03:30 - Physical Exam Constitutional: no apparent distress Eyes: PERRL, EOMI Ears, Nose, Mouth, Throat: moist mucous membranes, hearing normal Cardiovascular: regular rate and rhythym, No edema Respiratory: no respiratory distress, reduced air movement Gastrointestinal: normoactive bowel sounds, soft, non-tender abdomen Skin: warm Neurologic: No AAOx3 Psychiatric: encephalopathic Lymph, Heme, Immunologic: No petechiae ICD10 Worksheet Patient Problems: Problems Problem Status Onset Atrial fibrillation with RVR Acute Congestive heart failure Acute Renal insufficiency Acute COPD (chronic obstructive pulmonary disease) Acute Renal failure Acute Shortness of breath Acute
--- NOTE | 2018-08-21 16:35 | CPEKG ---
Test Reason : OPEN Blood Pressure : / mmHG Vent. Rate : 099 BPM Atrial Rate : 099 BPM P-R Int : 115 ms QRS Dur : 137 ms QT Int : 429 ms P-R-T Axes : 266 120 -73 degrees QTc Int : 551 ms ventricular-paced rhythm Confirmed by Mitchell Bear ([id number]) on 08/21/2018 4:35:39 PM Referred By: Confirmed By:Mitchell Bear
--- NOTE | 2018-08-21 16:37 | CPEKG ---
Test Reason : OPEN Blood Pressure : / mmHG Vent. Rate : 099 BPM Atrial Rate : 000 BPM P-R Int : 109 ms QRS Dur : 138 ms QT Int : 443 ms P-R-T Axes : 000 113 -73 degrees QTc Int : 569 ms ventricular-paced rhythm Confirmed by Mitchell Bear ([id number]) on 08/21/2018 4:36:49 PM Referred By: Confirmed By:Mitchell Bear
[2018-08-21] MEDS ORDERED: CARVEDILOL 3.125 MG TAB PO SCH (18:00)
[2018-08-21] MEDS: HYDROCODONE/APAP 5/325 TAB PO PRN (20:12)
[2018-08-21] MEDS: ZOLPIDEM TARTRATE 5 MG TAB PO PRN (22:45)
[2018-08-22] MEDS: LORazepam 2 MG/ML INJ IV PRN ×2 (01:16→05:31)
[2018-08-22 05:59] LABS: PLATELET COUNT 84 10^3/uL (150-400)
[2018-08-22] MEDS: FUROSEMIDE 40 MG/4 ML VIAL IVP SCH ×2 (08:30→20:41)
--- NOTE | 2018-08-22 08:38 | PDINTPN ---
Quality Process Lead Progress Note Assessment/Plan: ASSESSMENT 63-year-old male with severe congestive heart failure (EF 10%) and refractory atrial fibrillation with RVR status post micra leadless pacer and AV donald ablation 08/20/18 with postop course complicated by acute on chronic hypoxemic respiratory failure and encephalopathy now clinically improving # acute on chronic hypoxemic respiratory failure requiring bag-valve mask bagging and high-flow nasal cannula, however after diuresis and procedure has weaned down to 5-6 L face mask # severe congestive heart failure, slowly improving after AV donald ablation, pacer and diuresis # interstitial lung disease-appears combined COPD and pulmonary fibrosis # rheumatoid arthritis on Rituxan as an outpatient # prior smoking history # mood disorder # encephalopathy, metabolic and toxic # anemia PLAN # continue to maintain even to net negative fluid balance as interval fluid removal has helped oxygenation. # aggressive PT OT # agree with anticoagulation # afterload reduction per Cardiology # prn low dose haldol # Needs OP pulmonary follow up for RA related ILD vs combined COPD pulmonary fibrosis # Feeding - advance diet as tolerated # Analgesia APAP, fentanyl # Sedation none # Thromboprophylaxis - SCDs, elaquis # Head of bed elevated # Ulcer prophylaxis # Glucose SSI # Skin no skin breakdown # Delirium - delirium precautions Imaging Personally reviewed interpreted radiographic imaging as well as formal radiology reads 08/21/2018 chest x-ray with on 1 parenchymal abnormalities consistent with ILD with a superimposed component of pulmonary edema 08/22/18 13:19 Subjective: difficulty sleeping overnight, responded well to IV diuresis with improvements in oxygenation. No bleeding. No new headaches, chest pain, fevers, chills, nausea, vomiting, leg swelling Objective: Vital Signs Temp Pulse Resp BP Pulse Ox 36.8 C 100 22 H 97/75 L 94 08/22/18 08:00 08/22/18 08:00 08/22/18 08:00 08/22/18 08:00 08/22/18 08:00 Laboratory Results 08/22/18 05:30 08/22/18 05:30 08/21/18 08/22/18 08/23/18 05:59 05:59 05:59 Intake Total 798.0 1900 Output Total 1935 3900 Balance -1137.0 -2000 PT 16.5 SEC (12.0-15.0) H 08/20/18 03:30 INR 1.31 (0.83-1.16) H 08/20/18 03:30 Physical Exam - Physical Exam General Appearance: alert, no apparent distress EENT: PERRL/EOMI, normal ENT inspection, other (Oxygen Face mask in place) Neck: non-tender, full range of motion Respiratory: other (Bilateral rales) Cardiac/Chest: normal peripheral pulses, other (Regular rate RV paced, no murmurs appreciated) Abdomen: non-tender, soft Skin: normal color, warm/dry Neuro/Psych: no motor/sensory deficits, alert, normal mood/affect, oriented x 3 ICD10 Worksheet Patient Problems: Problems Problem Status Onset Atrial fibrillation with RVR Acute Congestive heart failure Acute Renal insufficiency Acute COPD (chronic obstructive pulmonary disease) Acute Renal failure Acute Shortness of breath Acute
[2018-08-22] MEDS: FUROSEMIDE 40 MG TAB PO SCH (08:48)
--- NOTE | 2018-08-22 09:45 | PDCARPN ---
<Yanira Sanchez - Last Filed: 08/22/18 09:40> Cardiology Progress Note Chief Complaint: s/p AV node ablation + leadless PPM Acute on chronic CHF Assessment/Plan: Assessment/Plan: 1. Atrial fibrillation with RVR - s/p AV node ablation and implant of Micra leadless PPM 08/20. Rates set to 100ppm x1 week, at which point we will lower his rates to 80ppm. Eliquis re-started yesterday. Right groin purse string suture removed, +ecchymosis, no evidence of hematoma, oozing, or infection. Transfer to PCU. 2. Tachycardia-mediated cardiomyopathy - Echo yesterday demonstrated LVEF 15%. He has started Coreg 3.125mg BID. Will plan to start Lisinopril in 2-3 days and plan to up-titrate Coreg over the next several weeks. 3. Acute on chronic congestive heart failure - diuresing well (3L output yesterday) 4. Interstitial lung disease: stable, requires BiPAP at night, Decreasing supplement 02 requirements 08/22/18 09:40 Subjective: Mr. Orozco is tired this morning (only slept a few hours), otherwise feels much better overall Reviewed/Discussed With: multidisciplinary team Time Spent with Patient: greater than 25 minutes Time Spent with Patient: Greater than 25 minutes spent on this patients care, greater than 50% of time spent counseling, educating, and coordinating care regarding the above mentioned plan. Objective: Vital Signs (8 Hrs) Temp Pulse Resp BP Pulse Ox 08/22/18 08:00 36.8 C 100 22 H 97/75 L 94 08/22/18 06:00 100 20 96/75 L 96 08/22/18 04:45 88 22 H 96 08/22/18 04:00 37.6 C 100 16 110/82 H 100 08/22/18 02:00 37.6 C 100 17 86/62 L 100 Intake/Output (24 Hrs) 08/21/18 08/22/18 08/23/18 05:59 05:59 05:59 Intake Total 798.0 1900 Output Total 1935 3900 Balance -1137.0 -2000 Intake: Oral (ml) 1900 IV Infused (ml) 798.0 Dexmedetomidine HCl 400 298.0 mcg In Ns 100 ml @ Per Protocol IV CONT NARESH Rx#: [id number] Ns 500 ml @ Wide Open IV 500 BOLUS ONE Rx#:[id number] Output: Urine (ml) 1935 3900 Catheter 1935 3900 Other: Weight 72.8 kg Output Comment Catheter straight cath Number of Stools Bedside Commode 1 Bladder Scan Volume (ml) Toilet 500 Result Diagrams: 08/22/18 05:30 08/22/18 05:30 Cardiac Labs: Cardiac Lab Results (72 Hrs) 08/21/18 09:05 Troponin I 0.560 H - Physical Exam Constitutional: no apparent distress Ears, Nose, Mouth, Throat: moist mucous membranes, no oral ulcers, no thrush Cardiovascular: regular rate and rhythm, no murmurs, no rubs, no gallops Peripheral Pulses: 2+: dorsalis-pedis (R), dorsalis-pedis (L) Respiratory: clear to auscultate bilat, no crackles, no wheezes Gastrointestinal: normoactive bowel sounds, no tenderness, no masses Skin: no rashes, no abrasions, no ulcers, warm, no edema Neurologic: AAOx3, CN II-XII grossly intact Psychiatric: cooperative, interactive, following commands, not anxious ICD10 Worksheet Patient Problems: Problems Problem Status Onset Atrial fibrillation with RVR Acute Congestive heart failure Acute Renal insufficiency Acute COPD (chronic obstructive pulmonary disease) Acute Renal failure Acute Shortness of breath Acute <Misha Choi - Last Filed: 08/22/18 19:41> Cardiology Progress Note Assessment/Plan: Assessment: Addendum Misha Choi MD -patient seen and examined, case discussed with Yanira Sanchez NP. I have performed all relevant aspects of history, physical exam and review of systems. Plan: 08/22/18 19:40 Objective: Vital Signs (8 Hrs) Temp Pulse BP Pulse Ox 08/22/18 16:14 36.8 C 96 104/74 91 L Intake/Output (24 Hrs) 08/21/18 08/22/18 08/23/18 11:59 11:59 11:59 Intake Total 798.0 2150 Output Total 1935 4500 150 Balance -1137.0 -2350 -150 Intake: Oral (ml) 2150 IV Infused (ml) 798.0 Dexmedetomidine HCl 400 298.0 mcg In Ns 100 ml @ Per Protocol IV CONT NARESH Rx#: [id number] Ns 500 ml @ Wide Open IV 500 BOLUS ONE Rx#:[id number] Output: Urine (ml) 1935 4500 150 Bedside Commode 600 150 Catheter 1935 3900 Other: Output Comment Catheter straight cath Number of Voids Bedside Commode 1 Number of Stools Bedside Commode 1 1 Bladder Scan Volume (ml) Toilet 500 Post Void Residual Scan Volume (ml) Bedside Commode 0 Result Diagrams: 08/22/18 05:30 08/22/18 05:30 Cardiac Labs: Cardiac Lab Results (72 Hrs) 08/21/18 09:05 Troponin I 0.560 H
[2018-08-22] MEDS: predniSONE 10 MG TAB PO SCH (10:31)
[2018-08-22] MEDS: APIXABAN 5 MG TAB PO SCH ×2 (10:34→20:41)
[2018-08-22] MEDS: CARVEDILOL 3.125 MG TAB PO SCH ×2 (10:34→18:38)
[2018-08-22] MEDS: SPIRONOLACTONE 25 MG TAB PO SCH (10:35)
[2018-08-22] MEDS: NYSTATIN POWDER 15 GM BTL TP SCH (10:36)
[2018-08-22] MEDS: HYDROCODONE/APAP 5/325 TAB PO PRN ×2 (12:07→21:43)
--- NOTE | 2018-08-22 13:08 | HOSPPROG ---
Hospitalist Progress Note Assessment/Plan: Assessment: 63 year old male with pmh of CHF LVEF of 10%, poorly controlled afib , ILD, RA, who presented to the ER with worsening shortness of breath. #AHRF -Cont with Diuresis #CHF Exacerbation, systolic -TTE with EF of 15 % on 08/21/18 -cont diuresis per cardiology -cont Coreg -Monitor BP closely, likely does not have room for MARLEY-I at this time #Afib with RVR -s/p Micro lead PPM and AV Node Ablation -cont Eliquis -Carvedilol per above #Agitation with Encephalopathy -improving -d/c Precedex #RA and Chronic Steroid use -close monitoring. - receives rituxan infusions. #ILD and COPD -would avoid Amiodarone -cont Prednisone per above -baseline O2 is 3-5 Liters #JOSH: CPAP at night #NALINI- resolved #Hypotension, soft BP: monitor -per above #Thrombocytosis: -cont to monitor, mild drop noted #Chronic Pain Syndrome: on Hydrocodone #Insomnia: -I attempted to stop vs decrease Ambien today due to recent agitation with Encephalopathy and the pt and the family refused. They are aware that it may lead to increased confusion but as he did not sleep well last night, they dont want this held tonight. Subjective: no cp or sob. transferred out of the ICU. Objective: Vital Signs Temp Pulse Resp BP Pulse Ox 36.8 C 99 18 120/85 H 93 08/22/18 08:00 08/22/18 11:27 08/22/18 10:00 08/22/18 11:27 08/22/18 11:27 Laboratory Results 08/22/18 05:30 08/22/18 05:30 08/21/18 08/22/18 08/23/18 05:59 05:59 05:59 Intake Total 798.0 1900 250 Output Total 1935 3900 750 Balance -1137.0 -2000 -500 PT 16.5 SEC (12.0-15.0) H 08/20/18 03:30 INR 1.31 (0.83-1.16) H 08/20/18 03:30 - Physical Exam Constitutional: no apparent distress, chronically ill appearing Eyes: PERRL Ears, Nose, Mouth, Throat: moist mucous membranes, hearing normal Cardiovascular: regular rate and rhythym, No edema Respiratory: no respiratory distress, reduced air movement Gastrointestinal: normoactive bowel sounds, soft, non-tender abdomen Skin: warm Neurologic: AAOx3 Psychiatric: interacting appropriately, not anxious, not encephalopathic Lymph, Heme, Immunologic: No petechiae ICD10 Worksheet Patient Problems: Problems Problem Status Onset Atrial fibrillation with RVR Acute Congestive heart failure Acute Renal insufficiency Acute COPD (chronic obstructive pulmonary disease) Acute Renal failure Acute Shortness of breath Acute
[2018-08-22] MEDS: ZOLPIDEM TARTRATE 5 MG TAB PO PRN (21:43)
[2018-08-23] MEDS ORDERED: LISINOPRIL 2.5 MG TAB PO SCH (09:00)
[2018-08-23] MEDS: CARVEDILOL 3.125 MG TAB PO SCH (09:00)
[2018-08-23] MEDS: FUROSEMIDE 40 MG/4 ML VIAL IVP SCH (09:01)
[2018-08-23] MEDS: NYSTATIN POWDER 15 GM BTL TP SCH (09:01)
[2018-08-23] MEDS: SPIRONOLACTONE 25 MG TAB PO SCH (09:01)
[2018-08-23] MEDS: predniSONE 10 MG TAB PO SCH (09:01)
[2018-08-23] MEDS: APIXABAN 5 MG TAB PO SCH (09:01)
--- NOTE | 2018-08-23 09:01 | PDCARPN ---
Cardiology Progress Note Chief Complaint: Afib s/p AV node ablation and leadless PPM implant CHF ILD Assessment/Plan: Assessment 1. Atrial fibrillation with RVR - s/p AV node ablation and implant of Micra leadless PPM 08/20. Rates set to 100ppm x1 week, at which point we will lower his rates to 80ppm and plan to ultimately lower rates to 60ppm at 1 month post- procedure. Eliquis has been re-started. Right groin ecchymosis is stable. 2. Tachycardia-mediated cardiomyopathy - Echo yesterday demonstrated LVEF 15%. He has started Coreg 3.125mg BID. Will start Lisinopril today. 3. Acute on chronic congestive heart failure - he has diuresed well and is looking significantly improved today. 4. Interstitial lung disease: stable, he has required BiPAP at night, Plan: 1. Patient is appropriate for DC home today from a cardiovascular standpoint. This is pending hospitalist and pulmonology discretion. 2. Recommend DC home with Coreg 3.125mg BID, Lisinopril 2.5mg daily, Lasix 60mg daily, and Aldactone 25mg daily. 3. He should continue Eliquis for lifelong anticoagulation 4. Follow-up in our device clinic in 1 week (he should contact [facility] to schedule this appointment). We will decrease his rates to 80ppm at that time. Plan to decrease to 60ppm four weeks post-procedure. 5. Follow-up with Yanira in 1 week (he should contact [facility] to schedule this appointment) 6. BMP and BNP prior to his follow-up visit next week 7. Groin precautions reviewed with patient and his . No lifting more than 10 pounds for the next 3-4 weeks, no submerged bathing x3-4 weeks (showering is OK). 8. Recommend cardiac rehab 9. Follow-up with Dr. Quinn in 4 weeks 08/23/18 09:04 Subjective: Mr. Orozco reports feeling very well this morning. Improved appetite. He is eager to be DC'd home today Reviewed/Discussed With: multidisciplinary team Time Spent with Patient: greater than 25 minutes Time Spent with Patient: Greater than 25 minutes spent on this patients care, greater than 50% of time spent counseling, educating, and coordinating care regarding the above mentioned plan. Objective: Vital Signs (8 Hrs) Temp Pulse Resp BP Pulse Ox 08/23/18 08:00 36.8 C 100 18 113/78 84 L 08/23/18 03:58 36.6 C 100 20 111/87 H 99 Intake/Output (24 Hrs) 08/22/18 08/23/18 08/24/18 05:59 05:59 05:59 Intake Total 1900 450 Output Total 3900 1850 125 Balance -2000 -1400 -125 Intake: Oral (ml) 1900 450 Output: Urine (ml) 3900 1850 125 Bedside Commode 750 Catheter 3900 Urinal 1100 125 Other: Number of Voids Bedside Commode 1 Urinal 1 Number of Stools Bedside Commode 1 1 Post Void Residual Scan Volume (ml) Bedside Commode 0 Result Diagrams: 08/22/18 05:30 08/23/18 03:46 Cardiac Labs: Cardiac Lab Results (72 Hrs) 08/21/18 09:05 Troponin I 0.560 H - Physical Exam Constitutional: WDWN, healthy appearing, no apparent distress Ears, Nose, Mouth, Throat: moist mucous membranes, no oral ulcers, no thrush Cardiovascular: regular rate and rhythm, no rubs, other (No appreciable s3) Peripheral Pulses: 2+: dorsalis-pedis (R), dorsalis-pedis (L) Respiratory: clear to auscultate bilat, no crackles, no wheezes Gastrointestinal: normoactive bowel sounds, no tenderness, no masses Genitourinary: no suprapubic tenderness, no CVAT Skin: no rashes, no abrasions, no ulcers, other (right groin ecchymosis is stable) Neurologic: AAOx3, CN II-XII grossly intact Psychiatric: cooperative, interactive, following commands, not anxious ICD10 Worksheet Patient Problems: Problems Problem Status Onset Atrial fibrillation with RVR Acute COPD (chronic obstructive pulmonary disease) Acute Congestive heart failure Acute Renal failure Acute Renal insufficiency Acute Shortness of breath Acute
--- NOTE | 2018-08-23 09:50 | ASMTCMCOM ---
CM Note CM Note Notes: CM reviewed therapy notes. PT has cleared pt to d/c with outpatient cardiac rehab follow up. Pt will resume his services w/ [facility]. CM to follow. Plan: Independent with [facility] Date Signed: 08/23/2018 09:50 AM Electronically Signed By:MARIELOS Mccain
--- NOTE | 2018-08-23 09:50 | PDINTPN ---
Poly Area Supervisor Progress Note Assessment/Plan: ASSESSMENT 63-year-old male with severe congestive heart failure (EF 10%) and refractory atrial fibrillation with RVR status post micra leadless pacer and AV donald ablation 08/20/18 with postop course complicated by acute on chronic hypoxemic respiratory failure and encephalopathy now clinically improving # acute on chronic hypoxemic respiratory failure requiring bag-valve mask bagging and high-flow nasal cannula, however after diuresis and procedure has weaned down to 5-6 L face mask # severe congestive heart failure, slowly improving after AV donald ablation, pacer and diuresis # interstitial lung disease-appears combined COPD and pulmonary fibrosis # rheumatoid arthritis on Rituxan as an outpatient # prior smoking history # mood disorder # encephalopathy, metabolic and toxic, improving # anemia PLAN # okay for discharge from a pulmonary perspective # Per patient and preference, he will follow up with Dr Gan in pulmonary clinic in 2-3 months with PFTs at time of visit for RA related ILD vs combined COPD pulmonary fibrosis # diuresis, afterload reduction and neurohormonal blockade # continue nocturnal CPAP, would not treat central apneas given systolic heart failure Imaging Personally reviewed interpreted radiographic imaging as well as formal radiology reads 08/21/2018 chest x-ray with on 1 parenchymal abnormalities consistent with ILD with a superimposed component of pulmonary edema 08/22/18 13:19 08/23/18 09:47 Subjective: Patient transferred to the floor yesterday. Evidence of improved peripheral and perfusion with improved cap Stacy refill as well as improved color. Less delirious this morning affect much more appropriate. Denies headaches chest pain worsening shortness of breath leg swelling fevers or chills Objective: Vital Signs Temp Pulse Resp BP Pulse Ox 36.8 C 100 18 113/78 84 L 08/23/18 08:00 08/23/18 09:00 08/23/18 08:00 08/23/18 09:00 08/23/18 08:00 Laboratory Results 08/22/18 05:30 08/23/18 03:46 08/22/18 08/23/18 08/24/18 05:59 05:59 05:59 Intake Total 1900 450 Output Total 3900 1850 125 Balance -2000 -1400 -125 PT 16.5 SEC (12.0-15.0) H 08/20/18 03:30 INR 1.31 (0.83-1.16) H 08/20/18 03:30 Physical Exam - Physical Exam General Appearance: alert, no apparent distress EENT: PERRL/EOMI, normal ENT inspection Neck: supple Respiratory: chest non-tender, lungs clear, other (Bibasilar rales, no distress) Cardiac/Chest: other (Regular rhythm, RV paced no heave), No edema Abdomen: non-tender, soft Skin: normal color, warm/dry Extremities: normal range of motion, non-tender Neuro/Psych: no motor/sensory deficits, alert, normal mood/affect, oriented x 3 ICD10 Worksheet Patient Problems: Problems Problem Status Onset Atrial fibrillation with RVR Acute Congestive heart failure Acute Renal insufficiency Acute COPD (chronic obstructive pulmonary disease) Acute Renal failure Acute Shortness of breath Acute
[2018-08-23 11:46] VITALS: BP 104/76
--- NOTE | 2018-08-23 13:58 | PDDCSUM ---
Discharge Summary Discharge Summary: 63-year-old male with severe congestive heart failure (EF 10%) and refractory atrial fibrillation with RVR status post micra leadless pacer and AV donald ablation 08/20/18 with postop course complicated by acute on chronic hypoxemic respiratory failure and encephalopathy. He was treated in the ICU and moved to the PCU once better. He is now back to baseline. Please see below for details per problem list. -Coreg 3.125mg BID, Lisinopril 2.5mg daily, Lasix 60mg daily, and Aldactone 25mg daily. -He should continue Eliquis for lifelong anticoagulation -Follow-up for device clinic in 1 week (he should contact [facility] to schedule this appointment). Plan to decrease his rates to 80ppm at that time. Plan to decrease to 60ppm four weeks post-procedure. - Follow-up with Yanira in 1 week (he should contact [facility] to schedule this appointment) -Groin precautions reviewed with patient and his . No lifting more than 10 pounds for the next 3-4 weeks, no submerged bathing x3-4 weeks (showering is OK) -Follow-up with Dr. Quinn in 4 weeks -f/u with Dr. Gan in 2-3 months #AHRF -Cont with Diuresis #CHF Exacerbation, systolic -Echo yesterday demonstrated LVEF 15%. He has started Coreg 3.125mg BID. Will start Lisinopril today. #Afib with RVR Atrial fibrillation with RVR - s/p AV node ablation and implant of Micra leadless PPM 08/20. Rates set to 100ppm x1 week, at which point we will lower his rates to 80ppm and plan to ultimately lower rates to 60ppm at 1 month post- procedure. Eliquis has been re-started. #Agitation with Encephalopathy -resolved #RA and Chronic Steroid use -close monitoring. - receives rituxan infusions. #ILD and COPD -would avoid Amiodarone -baseline O2 is 3-5 Liters #JOSH: CPAP at night #NALINI- resolved #Chronic Pain Syndrome: on Hydrocodone Exam: NAD AAOX3 RRR CTA B S/NT/ND MEDS: SEE MED REC F/U: PER ABOVE TOTAL TIME SPENT ON DC IS 35 MINS
--- NOTE | 2018-08-23 14:30 | ASMTLACE ---
LACE Length of stay for Answers: 4-6 days current admission Acuity / Level of Answers: Yes Care: Did the patient have an inpatient admission? Comorbidities - select Answers: Chronic pulmonary disease all that apply Congestive heart failure Mild liver or renal disease Opioid dependence / Chronic pain Other Notes: Spinal stenosis; AFib # of Emergency department Answers: 1-2 visits in the last 6 months Score: 19 Date Signed: 08/23/2018 02:29 PM Electronically Signed By:MARIELOS Mccain
--- NOTE | 2018-08-23 14:46 | ASDISCHSUM ---
Discharge Information Plan Status:Home with No Needs Medically Cleared to Leave:08/22/2018 Discharge Date:08/22/2018 CM D/C Disposition: ADT D/C Disposition:Home, Routine, Self-Care Projected Discharge Date:08/23/2018 11:00 AM Transportation at D/C: Discharge Delay Reason: Follow-Up Date:08/23/2018 11:00 AM Discharge Slot: Final Diagnosis: Placement Information Referral Type:Palliative Care Referral ID:[id number] Provider Name:[facility] Address 1:[address] Phone Number: Address 2: Fax Number: City:[place] Selection Factors: State:[place] Patient Contact Information Contact Name:CLARISA Relationship: Address:[address] City:[place] Alternate Phone: State/Zip Code:[place] [address] Email: Financial Information Financial Class:[employer] Primary Plan Desc:[employer] LOCAL Primary Plan Number:[id number] Secondary Plan Desc: Secondary Plan Number: Assessment Information LACE LACE Length of stay for Answers: 4-6 days current admission Acuity / Level of Answers: Yes Care: Did the patient have an inpatient admission? Comorbidities - select Answers: Chronic pulmonary disease all that apply Congestive heart failure Mild liver or renal disease Opioid dependence / Chronic pain Other Notes: Spinal stenosis; AFib # of Emergency department Answers: 1-2 visits in the last 6 months Score: 19 Date Signed: 08/23/2018 02:29 PM Electronically Signed By:MARIELOS Mccain [facility] CM Progress Note CM Note CM Note Notes: 08/19/2018 Case Management Note Pt admitted for pacemaker placement. Met w/ Suze [phone], Daughter Kendra Orozco [phone] and pt to discuss d/c needs. Pt is current with [facility]. Faxed updates. Pt has limited driving in the last few weeks d/t increasing SOB. and daughter transport as necessary. Awaiting PT eval. Pt declined home health. Case Management d/c poc: Independent with follow up as directed. Case Management available if needs arise. Date Signed: 08/19/2018 02:39 PM Electronically Signed By:Rozina Mcgrath RN [facility] CM Progress Note CM Note CM Note Notes: Patient had procedures yesterday and will be followed by OT/PT today. CM will follow. Date Signed: 08/21/2018 02:39 PM Electronically Signed By:Katelyn Allred LCSW [facility] CM Progress Note CM Note CM Note Notes: CM reviewed therapy notes. PT has cleared pt to d/c with outpatient cardiac rehab follow up. Pt will resume his services w/ [facility]. CM to follow. Plan: Independent with [facility] Date Signed: 08/23/2018 09:50 AM Electronically Signed By:MARIELOS Mccain Case Management Discharge Plan Note Case Management Discharge Discharge Order Complete? Answers: Yes Patient to Obtain Answers: Independently Medications Transportation Arranged Answers: Family/Friends EMTALA Complete Answers: No Case Management Transport Answers: No Form Complete Faxed Final Orders Answers: Yes Agency/Facility Transfer Answers: Yes Report Printed & Faxed to Receiving Agency Family Notified Answers: No Discharge Comments Notes: Pts case discussed w/ Dr. Maciel. Pt is being dc from the hospital. CM sent [facility] the d/c paperwork from this hospitalization. No other needs at this time. CM available for changes. Plan: Independent Date Signed: 08/23/2018 02:46 PM Electronically Signed By:MARIELOS Mccain Intervention Information
[2018-08-24] MEDS ORDERED: FUROSEMIDE 40 MG TAB PO SCH (09:00)
--- NOTE | 2018-08-26 08:20 | HOSPPROG ---
Hospitalist Progress Note Assessment/Plan: Patient's caller 2W - I spoke with her. has been taking lasix 60mg PO daily, but is getting edema. I recommended that he be seen in clinic soon as I could not address this on the phone. She will call today. Objective: Vital Signs Temp Pulse Resp BP Pulse Ox 36.6 C 100 18 104/76 92 08/23/18 11:45 08/23/18 11:45 08/23/18 11:45 08/23/18 11:45 08/23/18 11:45 Laboratory Results 08/22/18 05:30 08/23/18 03:46 PT 16.5 SEC (12.0-15.0) H 08/20/18 03:30 INR 1.31 (0.83-1.16) H 08/20/18 03:30 ICD10 Worksheet Patient Problems: Problems Problem Status Onset COPD (chronic obstructive pulmonary disease) Acute Congestive heart failure Acute Renal failure Acute Atrial fibrillation with RVR Acute Shortness of breath Acute Renal insufficiency Acute
--- NOTE | 2018-08-27 13:22 | ECHO ---
[email or web address] [place] [id number] Main: [phone] Fax: Transesophageal Echocardiography Name: RAHEEL LOCKHART MR#: [id number] Study Date: 08/20/2018 Study Time: 11:32 AM Date of : 1955 Age: 63 year(s) Height: ( ) Weight: ( ) BSA: Gender: Male Examination: SANDIE Indication: Pre EP Image Quality: Contrast: Requested by: Fish Morse Heart Rate: Rhythm: Atrial fibrillation BP: / Procedure Staff Naval Architect: Reading Physician: Requesting Provider: Naval Architect: Haresh Chilel RDCS Reading Physician: Misha Choi MD Requesting Provider: SANDIE Exam Details Conclusions: Severely reduced systolic LV function. Spontaneous contrast in the left atrium. Spontaneous contrast is present in the left atrial appendage. This was a limited study due to hemodynamic instability after anesthesia induction. Measurements: Chambers Valvular Assessment AV/MV Valvular Assessment TV/PV Normal Normal Normal Name Value Range Name Value Range Name Value Range Additional Measurements: Findings: Left Ventricle: Severely reduced systolic LV function. Right Ventricle: Severely reduced RV function. Left Atrium: The left atrium is severely dilated. Spontaneous contrast in the left atrium. Patient: RAHEEL LOCKHART Study Date: 08/20/2018 Page 1 of 2 11:32 AM Left Atrial Appendage: Spontaneous contrast is present in the left atrial appendage. l1n (No Signature Object) Patient: RAHEEL LOCKHART Study Date: 08/20/2018 Page 2 of 2 11:32 AM [id number]
== END 2018-08-23 15:46 | disposition home or self-care (01) | DRG 228 ==
LOC: F2N 20:32 → F2W 08-18 18:30 → F2N 08-20 10:39 → F2W 08-22 11:09
PROVIDERS: ADMIT Internal Medicine; ATTEND Internal Medicine
PROC: 02583ZZ Destruction of Conduction Mechanism, Percutaneous Approach (ICD-10-PCS; principal; 2018-08-20)
PROC: 02H Heart and Great Vessels, Insertion (ICD-10-PCS; principal; 2018-08-20)
DX: I48.91 Unspecified atrial fibrillation (principal); I50.23 Acute on chronic systolic (congestive) heart failure; J96.21 Acute and chronic respiratory failure with hypoxia; G92 Toxic encephalopathy; J84.9 Interstitial pulmonary disease, unspecified; N17.9 Acute kidney failure, unspecified; M06.9 Rheumatoid arthritis, unspecified; J44.9 Chronic obstructive pulmonary disease, unspecified; G47.33 Obstructive sleep apnea (adult) (pediatric); G89.4 Chronic pain syndrome; F39 Unspecified mood [affective] disorder; Z87.891 Personal history of nicotine dependence; Z79.01 Long term (current) use of anticoagulants
CPT/HCPCS: 83605-PO; 84484-PO; 96374; 97116-GP; 97162-GP; 97530-GP; C1731; C1732; C1769; C1786; J0282; J0690; J1644; J1650; J1940; J2060; J2250; J2704; J3010; J7512; Q9967

== ENCOUNTER 2018-08-24 10:04 | Emergency (ER) | payer OTHER ==
[2018-08-24 10:11] VITALS: BP 106/79
[2018-08-24] MEDS ORDERED: PHENAZOPYRIDINE HCL 200 MG TAB PO ONE (10:38)
[2018-08-24] MEDS ORDERED: CEPHALEXIN 500 MG CAP PO ONE (10:38)
--- NOTE | 2018-08-24 10:43 | EDPHY ---
H & P Time Seen by Provider: 08/24/18 10:26 HPI/ROS: CHIEF COMPLAINT: Dysuria, hematuria HISTORY OF PRESENT ILLNESS: The patient is a 63-year-old male who was discharged from the hospital on 08/23/2018 after having micro L list pacer placement and AV donald ablation on 08/20/2018. Patient had a Abbasi catheter while here. It was removed yesterday. Patient has now had increasing dysuria and frequency. He has noticed slight hematuria. He also noticed blood in his underwear this morning. He has no flank pain. No abdominal pain. No nausea vomiting. No fevers or chills. Patient denies chest pain or shortness of breath. Of note the patient is on Eliquis. REVIEW OF SYSTEMS: 10 systems were reveiwed and are negative with the exception of the elements mentioned in the history of present illness. Past Medical/Surgical History: Includes atrial fibrillation with RVR, encephalopathy, COPD, obstructive sleep apnea, chronic pain syndrome, IBS, spinal stenosis, rheumatoid arthritis Past surgical history: Includes pacemaker placement, cholecystectomy, hernia repair Social history: Patient does not smoke Smoking Status: Never smoked Physical Exam: Vitals noted GENERAL: Well-appearing, in no acute distress, alert. HEENT: Eyes normal to inspection, normal pharynx, no signs of dehydration. NECK: Normal, supple. RESPIRATORY: Clear to auscultation bilaterally, no rales, rhonchi or wheezing. CVS: Regular rate and rhythm, no rubs, murmurs, or gallops. ABDOMEN: Soft, nontender, nondistended, no organomegaly. : Patient has slight discharge from his penis. BACK: Normal to inspection, no CVA tenderness. SKIN: Normal color, no rash, warm, dry. No pallor. EXTREMITIES: Patient's right groin has bruising. There is no palpable thrill. No pedal edema, no calf tenderness, no Homans sign or cords, no joint swelling. NEURO/PSYCH: Alert and oriented, normal mood and affect, normal motor sensory exam. No obvious cranial nerve deficit. Constitutional: Initial Vital Signs Temperature (C) 36.5 C 08/24/18 10:05 Heart Rate 99 08/24/18 10:05 Respiratory Rate 18 08/24/18 10:05 Blood Pressure 106/79 08/24/18 10:05 O2 Sat (%) 94 08/24/18 10:05 O2 Delivery Mode Simple Mask Allergies/Adverse Reactions: eluxadoline [From Viberzi] Allergy (Verified 08/24/18 10:05) metronidazole [From Flagyl] Allergy (Verified 08/24/18 10:05) Home Medications: Medication Instructions Recorded Diazepam [Valium 5 MG (*)] 5 mg PO QID PRN 04/17/18 Hydrocodone/Acetaminophen [[place] 0.5 - 1 each PO Q6 PRN 04/17/18 5/325 (*)] Mag/Aluminum/Sod Bicarb/Alginc 2 each PO DAILY PRN 04/18/18 [Gaviscon 80-14.2 mg Tab Chew] Apixaban [Eliquis] 5 mg PO BID #60 tab 04/21/18 Spironolactone [Aldactone 25 MG 25 mg PO DAILY #30 tab 04/26/18 (*)] Nystatin Powder [Mycostatin Powder] 1 roshan TP DAILY 06/20/18 predniSONE 5 mg PO DAILY 06/20/18 Zolpidem Tartrate [Ambien 5MG (*)] 10 mg PO HS PRN 08/17/18 Carvedilol [Coreg (*)] 3.125 mg PO BIDMEAL #60 tab 08/23/18 Furosemide [Lasix 40 MG (*)] 60 mg PO DAILY #60 tab 08/23/18 Lisinopril [Zestril 2.5 mg (*)] 2.5 mg PO DAILY #30 tab 08/23/18 Cephalexin [Keflex (*)] 500 mg PO QID 5 Days cap 08/24/18 Phenazopyridine HCl [Pyridium] 100 mg PO TID #6 tab 08/24/18 Medical Decision Making ED Course/Re-evaluation: In the emergency department I discussed possible etiologies with the patient. I answered all his questions. Patient urine sample sent to the lab for evaluation and culture. Patient was given Pyridium 200 mg orally. Patient was given Keflex 500 mg orally for UTI symptoms. Patient was given a prescription of Pyridium and Keflex. Patient was given warnings prior to leaving culture is pending. Differential Diagnosis: My differential includes but is not limited to urinary tract infection, pyelonephritis, cystitis, urethral injury, anticoagulation Departure - Departure Disposition: Home, Routine, Self-Care Condition: Good Instructions: Urinary Tract Infection in Men (ED) Additional Instructions: You have a culture pending. Return with increasing pain, discharge, fever or any other concerns. Take your entire course of antibiotics. Referrals: Emily Robles MD [Primary Care Provider] - 5-7 days, call for appt. Prescriptions: Cephalexin [Keflex (*)] 500 mg PO QID 5 Days cap Phenazopyridine HCl [Pyridium] 100 mg PO TID #6 tab
== END 2018-08-24 10:59 | disposition home or self-care (01) ==
DX: N39.0 Urinary tract infection, site not specified (principal)